=== PATIENT | female | born 1945 | race Two or more races ===

== ENCOUNTER → 2023-05-16 | Outpatient (CLI) | payer OTHER ==
[2023-05-16 09:14] LABS: Basophils # (auto) 0.1 10 ^3/uL (0-0.2); Basophils % (auto) 0.9 % (0.0-2.0); Eosinophils # (auto) 0.2 10 ^3/uL (0-0.8); Eosinophils % (auto) 1.7 % (0.0-7.0); Hematocrit 46.4 % (36.0-46.0); Hemoglobin 15.7 g/dL (12.2-16.2); Lymphocytes # (auto) 1.6 10 ^3/uL (0.4-5.4); Lymphocytes % (auto) 16.8 % (10.0-50.0); Mean Corpuscular Hemoglobin 32.5 pg (28.0-32.0); Mean Corpuscular Hgb Conc. 33.9 g/dL (32.0-36.0); Mean Corpuscular Volume 95.9 fL (80.0-100.0); Monocytes # (auto) 0.8 10 ^3/uL (0-1.3); Monocytes % (auto) 8.2 % (0.0-12.0); Neutrophils # (auto) 6.9 10 ^3/uL (1.6-8.6); Neutrophils % (auto) 72.4 % (37.0-80.0); Nucleated Red Blood Cells % 0.2 %; Red Blood Cells 4.83 10^6/uL (4.0-5.20); Red Cell Distribution Width 12.8 % (11.8-14.3); White Blood Cell 9.6 10^3/uL (4.4-10.8)
[2023-05-16 09:26] LABS: Urine Bacteria FEW /hpf (None Seen); Urine Blood TRACE /uL (Negative); Urine Clarity HAZY (Clear); Urine Color Yellow (Yellow); Urine Hyaline Cast FEW /lpf (0 - 2); Urine Mucus FEW (None Seen); Urine Protein, UAD 2+ (Negative); Urine Specific Gravity 1.022 (1.001-1.035); Urine Urobilinogen Normal (Negative); Urine WBC 11 /hpf (0 - 5)
[2023-05-16 10:58] LABS: Cholesterol 132 mg/dL (< 200); HDL Cholesterol 61 mg/dL (40-59); LDL Cholesterol 46 mg/dL (< 100); Triglycerides 143 mg/dL (< 150)
[2023-05-16 11:18] LABS: Alanine Aminotransferase 13 U/L (7-40); Albumin 4.8 g/dL (3.2-4.8); Alkaline Phosphatase 130 U/L (46-116); Anion Gap 13 (5-15); Aspartate Aminotransferase 18 U/L (13-40); BUN/Creatinine Ratio 7.1 (10.0-20.0); Blood Urea Nitrogen 15 mg/dL (9-23); Calcium 9.6 mg/dL (8.7-10.4); Carbon Dioxide 18 mmol/L (20-30); Chloride 110 mmol/L (98-107); Glucose 142 mg/dL (74-106); Magnesium 2.1 mg/dL (1.6-2.6); Potassium 3.8 mmol/L (3.5-5.1); Sodium 141 mmol/L (136-145); Uric Acid 3.9 mg/dL (3.1-7.8)
[2023-05-16 11:19] LABS: Bilirubin, Total 0.4 mg/dL (0.2-1.0); Total Protein 7.6 g/dL (5.7-8.2)
[2023-05-16 12:20] LABS: Folate (Folic Acid) 19.38 ng/mL (>5.38)
== END | disposition home or self-care (01) ==
LOC: LAB 08:57
PROVIDERS: ATTEND Internal Medicine
DX: E61.2 Magnesium deficiency (principal); R78.89 Finding of other specified substances, not normally found in blood; E78.9 Disorder of lipoprotein metabolism, unspecified; R68.89 Other general symptoms and signs; R94.6 Abnormal results of thyroid function studies; E79.0 Hyperuricemia without signs of inflammatory arthritis and tophaceous disease; R82.991 Hypocitraturia; E85.9 Amyloidosis, unspecified; R82.79 Other abnormal findings on microbiological examination of urine; R82.90 Unspecified abnormal findings in urine; D51.9 Vitamin B12 deficiency anemia, unspecified
CPT/HCPCS: 36415; 80053; 80061; 81001; 82306; 82607; 82746; 83036; 83735; 84443; 84550; 85025; 87086

== ENCOUNTER 2023-06-22 11:05 | Inpatient (IN) | payer OTHER ==
[~2023-06-22] VITALS: Ht 157.5 cm; Wt 77.9 kg
[2023-06-22 12:25] LABS: Basophils # (auto) 0 10 ^3/uL (0-0.2); Basophils % (auto) 0.7 % (0.0-2.0); Eosinophils # (auto) 0.1 10 ^3/uL (0-0.8); Eosinophils % (auto) 2.4 % (0.0-7.0); Hemoglobin 15.4 g/dL (12.2-16.2); Lymphocytes # (auto) 1.4 10 ^3/uL (0.4-5.4); Lymphocytes % (auto) 24.2 % (10.0-50.0); Mean Corpuscular Hemoglobin 32.4 pg (28.0-32.0); Mean Corpuscular Hgb Conc. 32.8 g/dL (32.0-36.0); Mean Corpuscular Volume 98.9 fL (80.0-100.0); Monocytes # (auto) 0.5 10 ^3/uL (0-1.3); Monocytes % (auto) 9.4 % (0.0-12.0); Neutrophils # (auto) 3.6 10 ^3/uL (1.6-8.6); Neutrophils % (auto) 63.3 % (37.0-80.0); Nucleated Red Blood Cells % 0.1 %; Red Blood Cells 4.75 10^6/uL (4.0-5.20); Red Cell Distribution Width 13.3 % (11.8-14.3); White Blood Cell 5.6 10^3/uL (4.4-10.8)
[2023-06-22 12:40] LABS: INR 0.95 (0.9-1.15); Partial Thromboplastin Time 26.8 SEC (24.5-34.5)
[2023-06-22 12:45] LABS: Alanine Aminotransferase 18 U/L (7-40); Albumin 4.5 g/dL (3.2-4.8); Alkaline Phosphatase 108 U/L (46-116); Anion Gap 11 (5-15); Aspartate Aminotransferase 19 U/L (13-40); BUN/Creatinine Ratio 16.4 (10.0-20.0); Bilirubin, Total 0.5 mg/dL (0.2-1.0); Blood Urea Nitrogen 20 mg/dL (9-23); Calcium 9.7 mg/dL (8.7-10.4); Carbon Dioxide 19 mmol/L (20-30); Chloride 110 mmol/L (98-107); Glucose 135 mg/dL (74-106); Potassium 4.6 mmol/L (3.5-5.1); Sodium 140 mmol/L (136-145); Total Protein 6.8 g/dL (5.7-8.2)
[2023-06-22] MEDS ORDERED: NITROGLYCERIN 0.4 MG SL TAB SL ONE (13:30)
[2023-06-22] MEDS ORDERED: IOHEXOL 350 MG/ML 100ML IJ ONE (13:41)
[2023-06-22] MEDS ORDERED: LABETALOL HCL 5 MG/ML 4ML SYRINGE IV ONE (14:45)
[2023-06-22] MEDS ORDERED: hydrALAZINE HCL 20 MG/ML VL IV ONE (18:15)
[2023-06-22] MEDS ORDERED: LABETALOL HCL 5 MG/ML 4ML SYRINGE IV PRN (19:00)
[2023-06-22] MEDS: SODIUM CHLORIDE 0.9% 1,000 ML IV SCH (20:33)
[2023-06-22] MEDS: ENOXAPARIN SOD 40 MG/0.4 ML SYRINGE SC SCH (20:35)
[2023-06-22 20:57] LABS: Magnesium 2.2 mg/dL (1.6-2.6)
[2023-06-22 20:58] LABS: Phosphorus 3.1 mg/dL (2.4-5.1)
[2023-06-22] MEDS: ACETAMINOPHEN 325 MG TAB PO PRN (21:15)
[2023-06-22 21:54] LABS: Erythrocyte Sedimentation Rate 16 mm/hr (0-20)
[2023-06-22] MEDS ORDERED: ATORVASTATIN 20 MG TAB PO SCH (22:00)
[2023-06-22] MEDS: METOPROLOL TARTRATE 50 MG TAB PO SCH (22:33)
[2023-06-23 01:50] VITALS: PULSE 68; RESP 18; O2SAT 96
[2023-06-23] MEDS: SODIUM CHLORIDE 0.9% 1,000 ML IV SCH ×2 (05:10→09:59)
[2023-06-23] MEDS: ACETAMINOPHEN 325 MG TAB PO PRN ×2 (05:24→09:59)
[2023-06-23] MEDS ORDERED: CLOP75TA70 PO (09:45)
[2023-06-23] MEDS ORDERED: AMLO1TAB23 PO ×2 (09:45→14:47)
[2023-06-23] MEDS ORDERED: METO25TA93 PO ×2 (09:45→14:47)
[2023-06-23] MEDS ORDERED: PANT40T PO (09:45)
[2023-06-23] MEDS ORDERED: DONE5TAB80 PO (09:45)
[2023-06-23] MEDS ORDERED: GLIP2.5T9 PO (09:45)
[2023-06-23] MEDS ORDERED: ROSU1TAB15 PO (09:45)
[2023-06-23] MEDS ORDERED: ATE50T PO (09:46)
[2023-06-23] MEDS: METOPROLOL TARTRATE 50 MG TAB PO SCH (09:48)
[2023-06-23] MEDS: ENOXAPARIN SOD 40 MG/0.4 ML SYRINGE SC SCH (09:59)
[2023-06-23] MEDS ORDERED: ASPirin 81 mg TAB PO SCH (10:00)
[2023-06-23] MEDS ORDERED: DEXTROSE (50%) 50ML SYRG IV PRN (10:15)
[2023-06-23] MEDS ORDERED: LORazepam 2MG/ML-1ML VIAL IV PRN (10:30)
[2023-06-23] MEDS ORDERED: ACCU-CHEK COMFORT CURVE STRIP VI SCH (11:30)
[2023-06-23] MEDS ORDERED: InsuLIN REG 1unit/0.01ml Soln (100units/ml) SC SCH (11:30)
[2023-06-23 12:40] LABS: % Iron Saturation 31.3 % (15-50)
[2023-06-23 12:50] LABS: Ferritin 67.7 ng/mL (10-291); Free T4 (Free Thyroxine) 1.01 ng/dL (0.89-1.76)
[2023-06-23 12:51] LABS: Folate (Folic Acid) 18.31 ng/mL (>5.38)
[2023-06-23 14:51] VITALS: BP 126/59; PULSE 79; RESP 18; TEMP 97.5; O2SAT 96
[2023-06-23] MEDS ORDERED: GABAPENTIN 100 MG CAP PO SCH (22:00)
[2023-06-23] MEDS ORDERED: ATORVASTATIN 20 MG TAB PO SCH (22:00)
[2023-06-24] MEDS ORDERED: CLOPIDOGREL BISULFATE 75 MG TAB PO SCH (10:00)
[2023-06-24] MEDS ORDERED: amLODIPine BESYLATE 5 MG TAB PO SCH (10:00)
== END 2023-06-23 16:15 | disposition home or self-care (01) | DRG 305 ==
LOC: ER 11:05 → TELE 18:51 → TELE-E-ADS 18:51
PROVIDERS: ADMIT Nurse Practitioner Family; ATTEND Nurse Practitioner Acute Care
DX: I16.1 Hypertensive emergency (principal); N17.9 Acute kidney failure, unspecified; F03.918 Unspecified dementia, unspecified severity, with other behavioral disturbance; G40.209 Localization-related (focal) (partial) symptomatic epilepsy and epileptic syndromes with complex partial seizures, not intractable, without status epilepticus; E61.1 Iron deficiency; E66.9 Obesity, unspecified; E78.5 Hyperlipidemia, unspecified; G25.81 Restless legs syndrome; G43.909 Migraine, unspecified, not intractable, without status migrainosus; G47.00 Insomnia, unspecified; Z79.899 Other long term (current) drug therapy; Z79.02 Long term (current) use of antithrombotics/antiplatelets; Z82.49 Family history of ischemic heart disease and other diseases of the circulatory system; Z86.73 Personal history of transient ischemic attack (TIA), and cerebral infarction without residual deficits; Z91.148 Patient's other noncompliance with medication regimen for other reason; Z68.31 Body mass index [BMI] 31.0-31.9, adult; Z90.49 Acquired absence of other specified parts of digestive tract
CPT/HCPCS: 36415; 70450; 70496; 70551; 71045; 80053; 80061; 82607; 82728; 82746; 82962; 83036; 83540; 83550; 83735; 83880; 84100; 84439; 84443; 84484; 85025; 85610; 85652; 85730; 93005; 96374; 97163; 99291; G0378; J3490

== ENCOUNTER 2024-11-13 14:24 | Inpatient (IN) | payer OTHER, MEDICAID ==
[~2024-11-13] VITALS: Ht 157.5 cm; Wt 79.0 kg
[~2024-11-13 14:24] MED LIST: AMLO1TAB23 PO; CLOP75TA70 PO; DONE5TAB80 PO; GLIP2.5T9 PO; METO25TA93 PO; PANT40T PO; ROSU40TA47 PO
[2024-11-13 18:54] VITALS: BP 173/81; PULSE 54; TEMP 98.8; O2SAT 94
[2024-11-13 19:01] VITALS: PULSE 62; RESP 18; O2SAT 96
[2024-11-13 19:30] VITALS: BP 173/81; PULSE 62; RESP 18; TEMP 98.2; O2SAT 96
[2024-11-13 20:00] VITALS: PULSE 59; RESP 18; O2SAT 96
[2024-11-13 21:00] VITALS: BP 153/81; PULSE 61; RESP 17; TEMP 98.8; O2SAT 95
[2024-11-13] MEDS ORDERED: DEXTROSE (50%) 50ML SYRG IV PRN (21:45)
[2024-11-13] MEDS ORDERED: ONDANSETRON HCL 4 MG/2 ML VIAL IV PRN (21:45)
[2024-11-13] MEDS ORDERED: MORPHINE SULFATE INJ 2 MG/ml SYRG IV PRN (21:45)
[2024-11-13] MEDS ORDERED: NITROGLYCERIN 0.4 MG SL TAB SL PRN (21:45)
--- NOTE | 2024-11-13 21:58 | DVHHP2 ---
History of Present Illness Reason for Visit: Altered mental status History of Present Illness 79-year-old female transferred from [facility] for continuity of care and disposition. Patient presented to outside facility on 11/11/2024 with complaints of blurred vision, right facial droop, expressive aphasia and difficulty swollen that has been ongoing since the day prior at 5:[address] of the head from outside facility was essentially negative for acute pathology. MRI of the brain was taken prior to the patient being transferred. Results will be faxed. It was reported that the patient did fail a swallow study today. Patient was stable in stable condition. Patient continues to complain of blurred vision on bilateral sinclair. No facial droop noted. All extremities are equal in strength. She does report having difficulty formulating words. No cardiac or respiratory complaints. Past Medical History CVA, GERD, hypertension, diabetes mellitus, Alzheimer's Past Surgical History None Family History Noncontributory Smoke: No ALCOHOL: none Drugs: None Lives: with Family Review of Systems Review of Systems Review of systems are currently negative otherwise addressed in HPI. Allergies: Coded Allergies: NO KNOWN ALLERGIES (Unverified , 06/22/23) Exam Vital Signs Vital Signs Date Time Temp Pulse Resp B/P (MAP) Pulse Ox O2 Delivery O2 Flow Rate FiO2 11/13/24 19:30 98.2 62 18 173/81 (111) 96 98.2 Exam Gen: 79-year-old female in mild distress Skin: Warm, dry, normal color and texture, no rash. HEENT: Normocephalic atraumatic, mucous membranes moist and pink. Neck: Cervical and supraclavicular nodes normal without enlargement, trachea is midline, thyroid gland is normal without masses. Pulmonary: Clear to auscultation and percussion bilaterally. Cardiac: Regular rate and rhythm. No murmur Abdomen: Soft, nontender, nondistended, bowel sounds present all 4 quadrants, no guarding, no rigidity, no organomegaly. Extremities: No cyanosis, clubbing, no edema Neuro: Cranial nerves II through XII grossly intact, normal affect and speech, no focal motor deficits. Assessment/Plan Assessment/Plan Assessment Cerebrovascular accident, nonhemorrhagic Accelerated hypertension Expressive aphasia Dysphagia Plan Admit the patient to telemetry to the hospitalist Nephrology consultation We will get results from outside facility for MRI of the brain. NPO Repeat Swallow eval Maintenance IV fluids TPN per pharmacy Continue treatment per orders. Plan discussed with: Patient My Orders Orders - MANUEL OGDEN Procedure Category Date Status Time Complete Blood Count LAB 11/13/24 Verified 21:31 Comprehensive LAB 11/13/24 Verified Metabolic Panel 21:31 Troponin-I Hs LAB 11/13/24 Verified 21:31 Urinalysis LAB 11/13/24 Verified 21:31 Hydralazine Injection PHA 11/13/24 Verified (Apresoline Inject 21:45 * Neurology Consult CONS 11/13/24 Verified 21:31 Tpn Per Pharmacy NABIL 11/13/24 Verified 21:31 D5w/Sod Chl 0.45% 1/2 PHA 11/13/24 Verified NS 21:45 Glucose Blood PHA 11/14/24 Verified (Accu-Chek Comfort 00:00 Mild Sliding Scale PHA 11/14/24 Verified Npo - Q6hr 00:00 Dextrose 50% Syringe PHA 11/13/24 Verified 21:45 * Swallow Request ST 11/13/24 Verified 21:31 Pt Request For Service PT 11/13/24 Verified 21:31 Admit ADMIT 11/13/24 Verified 21:31 Ondansetron Hcl PHA 11/13/24 Verified (Zofran) 21:45 Enoxaparin Sodium PHA 11/14/24 Verified (Lovenox) 10:00 Npo (Nothing By DIET 11/14/24 Verified Mouth) Diet Breakfast Condition: Fair NABIL 11/13/24 Verified 21:31 Bedrest With Bathroom NABIL 11/13/24 Verified Privileg 21:31 Nitroglycerin PHA 11/13/24 Verified Sublingual (Ntrostat 21:45 Morphine Sulfate PHA 11/13/24 Verified Injection 21:45 Stat Ekg For Chest NABIL 11/13/24 Verified Pain 21:31 Notify Md Of Changes NABIL 11/13/24 Verified From Base 21:31 Auto Radio Mechanic For NABIL 11/13/24 Verified 24 Hours 21:31 Emergency Dysrhythmia NABIL 11/13/24 Verified Protocol 21:31 Rhythm Strips Once [facility] 11/13/24 Verified Every Shift 21:31 Oxygen By Nasal RT 11/13/24 Verified Cannula 21:31 Date of Service: Nov 13, 2024 Billing Provider: MANUEL OGDEN Common Visit Codes: [id number] INP/OBS CARE (HIGH) OGDEN,[facility] Nov 13, 2024 21:58
[2024-11-13] MEDS ORDERED: TPN PER PHARMACY 0 ML IV SCH (22:30)
[2024-11-13 22:36] LABS: Basophils # (auto) 0 10 ^3/uL (0-0.2); Basophils % (auto) 0.6 % (0.0-2.0); Eosinophils # (auto) 0.1 10 ^3/uL (0-0.8); Eosinophils % (auto) 1.1 % (0.0-7.0); Hematocrit 46.3 % (36.0-46.0); Hemoglobin 15.9 g/dL (12.2-16.2); Lymphocytes % (auto) 19.4 % (10.0-50.0); Mean Corpuscular Hemoglobin 32.6 pg (28.0-32.0); Mean Corpuscular Hgb Conc. 34.3 g/dL (32.0-36.0); Mean Corpuscular Volume 95.2 fL (80.0-100.0); Monocytes # (auto) 0.5 10 ^3/uL (0-1.3); Monocytes % (auto) 9.8 % (0.0-12.0); Neutrophils # (auto) 3.7 10 ^3/uL (1.6-8.6); Neutrophils % (auto) 69.1 % (37.0-80.0); Nucleated Red Blood Cells % 0.1 %; Platelet Count (auto) 238 10^3/uL (140-450); Red Blood Cells 4.86 10^6/uL (4.0-5.20); Red Cell Distribution Width 14.5 % (11.8-14.3); White Blood Cell 5.3 10^3/uL (4.4-10.8)
[2024-11-13 22:54] LABS: Alanine Aminotransferase 11 U/L (7-40); Albumin 4.4 g/dL (3.2-4.8); Alkaline Phosphatase 106 U/L (46-116); Aspartate Aminotransferase 13 U/L (13-40); BUN/Creatinine Ratio 19.7 (10.0-20.0); Calcium 10.3 mg/dL (8.7-10.4); Total Protein 6.8 g/dL (5.7-8.2)
[2024-11-13 22:55] LABS: Bilirubin, Total 0.7 mg/dL (0.2-1.0)
[2024-11-13 22:58] LABS: Anion Gap 18 (5-15); Potassium 4.3 mmol/L (3.5-5.1)
[2024-11-13 23:00] LABS: Blood Urea Nitrogen 26 mg/dL (9-23); Carbon Dioxide 16 mmol/L (20-31); Chloride 111 mmol/L (98-107); Glucose 72 mg/dL (74-106); Sodium 145 mmol/L (136-145)
[2024-11-13] MEDS: hydrALAZINE HCL 20 MG/ML VL IV PRN (23:16)
[2024-11-13] MEDS: D5W/SOD CHL 0.45% 1,000 ML IV SCH (23:21)
[2024-11-14] VITALS (9 sets, daily range): BP systolic 120–198; BP diastolic 66–101; PULSE 62–96; RESP 15–18; TEMP 97.5–98.2; O2SAT 95–97
[2024-11-14] MEDS: InsuLIN REG 1unit/0.01ml Soln (100units/ml) SC SCH
[2024-11-14] MEDS: ACCU-CHEK COMFORT CURVE STRIP VI SCH (00:20)
[2024-11-14 02:35] LABS: Urine Bacteria None Seen /hpf (None Seen)
[2024-11-14 03:11] LABS: Urine Blood Negative /uL (Negative); Urine Clarity Turbid (Clear); Urine Color Light-Yellow (Yellow); Urine Hyaline Cast FEW /lpf (0 - 2); Urine Mucus FEW (None Seen); Urine Protein, UAD 1+ (Negative); Urine Specific Gravity 1.026 (1.001-1.035); Urine Squamous Epithelial Cell MOD /hpf (<5); Urine Urobilinogen Normal (Negative); Urine WBC 2 /HPF (0-5)
[2024-11-14 07:52] LABS: Alanine Aminotransferase 14 U/L (7-40); Albumin 4.6 g/dL (3.2-4.8); Alkaline Phosphatase 109 U/L (46-116); Anion Gap 20 (5-15); BUN/Creatinine Ratio 20.3 (10.0-20.0); Glucose 102 mg/dL (74-106); Magnesium 1.9 mg/dL (1.6-2.6); Potassium 4.4 mmol/L (3.5-5.1); Sodium 143 mmol/L (136-145); Total Protein 7.2 g/dL (5.7-8.2)
[2024-11-14 07:53] LABS: Aspartate Aminotransferase 21 U/L (13-40); Bilirubin, Total 0.7 mg/dL (0.2-1.0); Blood Urea Nitrogen 26 mg/dL (9-23); Calcium 10.5 mg/dL (8.7-10.4); Carbon Dioxide 13 mmol/L (20-31); Chloride 110 mmol/L (98-107); Phosphorus 3.9 mg/dL (2.4-5.1); Triglycerides 161 mg/dL (< 150)
[2024-11-14] MEDS: ENOXAPARIN SOD 30 MG/0.3 ML SYRINGE SC SCH (10:08)
[2024-11-14 12:22] LABS: Hepatitis B Surface Antigen Negative (Negative)
[2024-11-14 12:43] LABS: Hepatitis C Antibody Negative (Negative)
--- NOTE | 2024-11-14 14:51 | DVHPN2 ---
Subjective Patient continues to report having headache Reviewed: Care Plan, H&P, Labs, Medications Changes from previous H/P or p: No Changes General: Per HPI Objective Vitals Vital Signs Date Time Temp Pulse Resp B/P (MAP) Pulse Ox O2 Delivery O2 Flow Rate FiO2 11/14/24 13:00 97.6 96 17 120/66 (84) 95 97.6 11/14/24 08:10 Room Air* 0 21 Intake/Output Intake and Output 11/14/24 07:00 Output Total 250 ml Balance -250 ml Output Urine Total 250 ml General Appearance: Alert, Oriented X3, Cooperative, No acute distress HEENT: Atraumatic, PERRLA Lungs: Clear to auscultation, Normal air movement Cardiovascular: Normal S1, Normal S2 Musculoskeletal: Normal sensory function, Normal motor function Extremities: No clubbing, No cyanosis Neuro: Normal gait, Normal speech Skin: Dry, Intact Psych/Mental Status: Mental status NL, Mood NL Medications Current Medications Medications Dose Ordered Sig/Tasia Route Start Time Stop Time Status Last Admin Dose Admin Hydralazine HCl 10 mg Q6HP PRN IV 11/13/24 21:45 11/13/24 23:16 10 MG Dextrose/Sodium Chloride 1,000 ml @ 75 mls/hr [id number] IV 11/13/24 21:45 11/13/24 23:21 75 MLS/HR Diagnostic Test (Pha) 1 strip Q6HR 11/14/24 00:00 11/14/24 11:19 1 STRIP Insulin Human Regular Q6HR SC 11/14/24 00:00 Dextrose 50 ml UD PRN IV 11/13/24 21:45 Ondansetron HCl 4 mg Q4HP PRN IV 11/13/24 21:45 Enoxaparin Sodium 30 mg DAILY SC 11/14/24 10:00 11/14/24 10:08 30 MG Nitroglycerin 0.4 mg Q5MINP PRN SL 11/13/24 21:45 Morphine Sulfate 2 mg Q30M PRN IV 11/13/24 21:45 Amino Acids 0 ml @ 0 mls/hr PER PHARMACY IV 11/13/24 22:30 Amino Acids/ Electrolytes/ Dextrose 1,000 ml @ 41 mls/hr DAILY@2200 IV 11/14/24 22:00 11/15/24 21:59 Laboratory Results Laboratory Tests 11/13/24 22:22 11/14/24 06:48 Chemistry Test 11/13/24 22:22 11/14/24 06:48 Albumin 4.4 g/dL (3.2-4.8) 4.6 g/dL (3.2-4.8) Calcium Level 10.3 mg/dL (8.7-10.4) 10.5 mg/dL (8.7-10.4) H Total Protein 6.8 g/dL (5.7-8.2) 7.2 g/dL (5.7-8.2) Magnesium Level 1.9 mg/dL (1.6-2.6) Phosphorus Level 3.9 mg/dL (2.4-5.1) Lipid panel Test 11/14/24 06:48 Triglycerides Level 161 mg/dL (< 150) H LFT Test 11/13/24 22:22 11/14/24 06:48 Alanine Aminotransferase (ALT) 11 U/L (7-40) 14 U/L (7-40) Alkaline Phosphatase 106 U/L (46-116) 109 U/L (46-116) Aspartate Amino Transferase (AST) 13 U/L (13-40) 21 U/L (13-40) Total Bilirubin 0.7 mg/dL (0.2-1.0) 0.7 mg/dL (0.2-1.0) Urinalysis Test 11/14/24 02:00 Urine Color Light-yellow (Yellow) Urine Clarity Turbid (Clear) H Urine pH 6.0 (5.0-9.0) Urine Specific [place] 1.026 (1.001-1.035) Urine Protein 1+ (Negative) H Urine Ketones 4+ (Negative) H Urine Blood Negative /uL (Negative) Urine Nitrite Negative (Negative) Urine Bilirubin Negative (Negative) Urine Urobilinogen Normal mg/dL (Negative) Urine Leukocyte Esterase Negative /uL (Negative) Urine RBC None seen /hpf (0 - 4) Urine Microscopic WBC 2 /HPF (0-5) Urine Squamous Epithelial Cells Mod /hpf (<5) Urine Bacteria None seen /hpf (None Seen) Urine Hyaline Casts Few /lpf (0 - 2) Urine Mucus Few (None Seen) Urine Glucose Normal mg/dL (Normal) Labs and/or images reviewed: Labs reviewed by me, Image(s) reviewed by me Assessment/Plan Assessment/Plan Impression: -acute CVA involving the tobias -history of CVA -diabetes mellitus -accelerated hypertension -paroxysmal atrial fibrillation -metabolic acidosis Plan: -cardiology consultation to assess for possible BECKY. -CT angiogram of the neck negative for large vessel occlusion as noted from diagnostic report from [facility] -recommend aspirin or Eliquis, patient continues to be NPO given inability to swallow -speech therapy for swallow evaluation -continue IV nutrition as previously ordered -regular insulin sliding scale -check TSH, lipid panel, serum ketones Total time spent with patient discussing and formulating plan of care: 35 minutes. This medical document was created using an electronic medical record system with [employer] dictation system. Although this document has been carefully reviewed, there may still be some phonetic and typographical errors. These areas are purely typographical due to imperfections of the software programs, and do not reflect any compromise in the patient's medical care. Plan discussed with: Patient, Other (RN) My Orders Orders - RY ANAYA NP Procedure Category Date Status Time * Cardiology Consult CONS 11/14/24 Verified 14:44 Basic Metabolic Panel LAB 11/15/24 Verified 04:00 Thyroid Stimulating LAB 11/14/24 Verified Hormone 14:44 Hemoglobin A1c LAB 11/14/24 Verified 14:44 Beta-Hydroxybutyrate LAB 11/14/24 Verified 14:44 Lipid Panel LAB 11/14/24 Verified 14:44 Date of Service: Nov 14, 2024 Billing Provider: RY ANAYA NP Common Visit Codes: [id number] INP/OBS CARE(HIGH) RY ANAYA NP Nov 14, 2024 14:51
[2024-11-14 17:23] LABS: Triglycerides 133 mg/dL (< 150)
[2024-11-14 17:30] LABS: Cholesterol 234 mg/dL (< 200); HDL Cholesterol 66 mg/dL (40-59); LDL Cholesterol 144 mg/dL (< 100)
--- NOTE | 2024-11-14 17:36 | DVHINCON2 ---
Date Seen: Nov 14, 2024 Referring Physician ARSH Anaya Reason for Consultation Assess for BECKY History of Present Illness This is an 79-year-old female patient who presents to emergency room from [facility]. Initially, the patient reports that when she was at home she began to feel shortness of breath, left-sided weakness, and dysphagia. Family called EMS and the patient was immediately taken to [facility]. At [facility], the patient underwent a brain MRI which revealed two small foci of acute infarcts in the ventral and dorsal left paramedian tobias. The patient was then transferred to this facility due to insurance reasons. Cardiology has been consulted at this time for possible transesophageal echocardiogram. Initial twelve lead electrocardiogram done at this facility reveals sinus bradycardia with first-degree AV block. Initial troponin level negative. The patient denies any cardiac symptoms. Significant past medical history includes hypertension, dyslipidemia, chronic kidney diseas e, history of CVA, and obesity. Per admitting provider documentation, paroxysmal atrial fibrillation noted as part of patient's history. Patient denies any history of paroxysmal atrial fibrillation. No cardiac or EKG findings to confirm atrial fibrillation. Per external medication reconciliation, patient is not on any NOAC therapy. She denies seeing a associate biological sales in the outpatient setting. Past Medical History Past medical history reviewed. No other significant than mentioned above. Past Surgical History Hernia repair Family History: Asthma G8 MOTHER FH: dementia G8 MOTHER Family History Family history reviewed. Social History Denies the use of tobacco, alcohol or illicit drugs. Allergies: Uncoded Allergies: NKA (Allergy, Unknown, 11/13/24) NKA Home Meds Active Scripts Amlodipine Besylate (Amlodipine Besylate) 10 Mg Tab, 1 TAB PO DAILY for 60 Days, #60 TAB Prov:RY ANAYA NUCLEAR OPERATIONS SPECIALIST 06/23/23 Metoprolol Succinate (Metoprolol Succinate Er) 25 Mg Tab, 1 TAB PO DAILY for 60 Days, #60 TAB Prov:RY ANAYA NUCLEAR OPERATIONS SPECIALIST 06/23/23 Reported Medications Pantoprazole Sodium Sesquihydr (Pantoprazole Sodium) 40 Mg Tab, 1 TAB PO DAILY 06/23/23 Donepezil Hydrochloride (DONEPEZIL HCL) 5 Mg Tab, 1 TAB PO DAILY 06/23/23 Clopidogrel Bisulfate (CLOPIDOGREL) 75 Mg Tab, 1 TAB PO DAILY 06/23/23 Glipizide (Glipizide Er) 2.5 Mg Tab, 1 TAB PO DAILY 06/23/23 Rosuvastatin Calcium (Rosuvastatin Calcium) 40 Mg Tab, 1 TAB PO DAILY 06/23/23 Home Meds Home medications reviewed. Current Medications Current Medications Medications (Trade) Dose Ordered Sig/Tasia Route PRN Reason Start Time Stop Time Status Last Admin Hydralazine HCl (Apresoline Injection) 10 mg Q6HP PRN IV SBP>150 11/13/24 21:45 11/14/24 16:56 Dextrose/Sodium Chloride 1,000 ml @ 75 mls/hr [id number] IV 11/13/24 21:45 11/14/24 15:58 Diagnostic Test (Pha) (Accu-Chek Comfort Curve T) 1 strip Q6HR 11/14/24 00:00 11/14/24 16:58 Insulin Human Regular (InsuLIN R) Q6HR SC 11/14/24 00:00 Dextrose 50 ml UD PRN IV Blood Sugar LESS THAN 60 11/13/24 21:45 Ondansetron HCl (Zofran) 4 mg Q4HP PRN IV NAUSEA / VOMITING 11/13/24 21:45 Enoxaparin Sodium (Lovenox) 30 mg DAILY SC 11/14/24 10:00 11/14/24 10:08 Nitroglycerin (Ntrostat Sublingual) 0.4 mg Q5MINP PRN SL FOR CHEST PAIN 11/13/24 21:45 Morphine Sulfate 2 mg Q30M PRN IV FOR CHEST PAIN 11/13/24 21:45 Amino Acids 0 ml @ 0 mls/hr PER PHARMACY IV 11/13/24 22:30 Amino Acids/ Electrolytes/ Dextrose 1,000 ml @ 41 mls/hr DAILY@2200 IV 11/14/24 22:00 11/15/24 21:59 Review of Systems Constitutional: No symptom reported Ears, Nose, & Throat: No symptom reported Eyes: No symptom reported Neurological: Left-sided weakness Pulmonary/Respiratory: No symptoms reported Cardiovascular: No symptom reported Gastrointestinal: Dysphagia Genitourinary: No symptom reported Musculoskeletal: No symptom reported Skin: No symptom reported Psychiatric: No symptom reported Endocrine: No symptom reported Hematologic/Lymphatic: No symptom reported Vital Signs Vital Signs Date Time Temp Pulse Resp B/P (MAP) Pulse Ox O2 Delivery O2 Flow Rate FiO2 11/14/24 16:56 198/98 11/14/24 13:00 97.6 96 17 95 97.6 11/14/24 08:10 Room Air* 0 21 Physical Exam General Appearance: Cooperative. Well-developed. Well-nourished. No acute distress. Pulmonary/Respiratory: Clear, bilateral breaths sounds. Cardiovascular/Chest: Regular rate and rhythm. Peripheral Pulses: 2+ Radial (R). 2+ Radial (L). 2+ Pedal (R). 2+ Pedal (L) Abdominal Exam: Normal bowel sounds. Ankle Exam: Negative ankle edema Lower extremities: Negative lower extremity edema Neuro/Mental Status: A/OX3, coherent. Some difficulty formulating words Thoughts/Psych: Normal thought pattern. Appropriate mood and affect. Good judgment and insight. Appearance: No acute distress. Skin Exam: Normal inspection. Normal color. Warm and dry. Labs/Diagnostic Data Labs Test 11/14/24 16:55 11/14/24 16:38 11/14/24 16:13 11/14/24 06:48 Range/Units POC Glucose 111 H 70-106 mg/dl Hemoglobin A1c 5.8 H <5.7 % A1C Sodium Level 143 136-145 mmol/L Potassium Level 4.4 3.5-5.1 mmol/L Chloride Level 110 H 98-107 mmol/L Carbon Dioxide Level 13 L 20-31 mmol/L Anion Gap 20 H 5-15 Blood Urea Nitrogen 26 H 9-23 mg/dL Creatinine 1.28 H 0.550-1.02 mg/dL Glomerular Filtration Rate Calc 42 >90 mL/min BUN/Creatinine Ratio 20.3 H 10.0-20.0 Serum Glucose 102 74-106 mg/dL Calcium Level 10.5 H 8.7-10.4 mg/dL Phosphorus Level 3.9 2.4-5.1 mg/dL Magnesium Level 1.9 1.6-2.6 mg/dL Total Bilirubin 0.7 0.2-1.0 mg/dL Aspartate Amino Transferase (AST) 21 13-40 U/L Alanine Aminotransferase (ALT) 14 7-40 U/L Alkaline Phosphatase 109 46-116 U/L Total Protein 7.2 5.7-8.2 g/dL Albumin 4.6 3.2-4.8 g/dL Hepatitis B Surface Antigen Negative Negative Hepatitis C Antibody Negative Negative Test 11/14/24 02:00 11/13/24 22:22 Range/Units Urine Color Light-yellow Yellow Urine Clarity Turbid H Clear Urine pH 6.0 5.0-9.0 Urine Specific [place] 1.026 1.001-1.035 Urine Protein 1+ H Negative Urine Ketones 4+ H Negative Urine Blood Negative Negative /uL Urine Nitrite Negative Negative Urine Bilirubin Negative Negative Urine Urobilinogen Normal Negative mg/dL Urine Leukocyte Esterase Negative Negative /uL Urine RBC None seen 0 - 4 /hpf Urine Microscopic WBC 2 0-5 /HPF Urine Squamous Epithelial Cells Mod <5 /hpf Urine Bacteria None seen None Seen /hpf Urine Hyaline Casts Few 0 - 2 /lpf Urine Mucus Few None Seen Urine Glucose Normal Normal mg/dL White Blood Count 5.3 4.4-10.8 10^3/uL Red Blood Count 4.86 4.0-5.20 10^6/uL Hemoglobin 15.9 12.2-16.2 g/dL Hematocrit 46.3 H 36.0-46.0 % Mean Corpuscular Volume 95.2 80.0-100.0 fL Mean Corpuscular Hemoglobin 32.6 H 28.0-32.0 pg Mean Corpuscular Hemoglobin Concent 34.3 32.0-36.0 g/dL Red Cell Distribution Width 14.5 H 11.8-14.3 % Platelet Count 238 140-450 10^3/uL Mean Platelet Volume 8.9 6.9-10.8 fL Neutrophils (%) (Auto) 69.1 37.0-80.0 % Lymphocytes (%) (Auto) 19.4 10.0-50.0 % Monocytes (%) (Auto) 9.8 0.0-12.0 % Eosinophils (%) (Auto) 1.1 0.0-7.0 % Basophils (%) (Auto) 0.6 0.0-2.0 % Neutrophils # (Auto) 3.7 1.6-8.6 10 ^3/uL Lymphocytes # (Auto) 1.0 0.4-5.4 10 ^3/uL Monocytes # (Auto) 0.5 0-1.3 10 ^3/uL Eosinophils # (Auto) 0.1 0-0.8 10 ^3/uL Basophils # (Auto) 0 0-0.2 10 ^3/uL Nucleated Red Blood Cells 0.1 % Troponin I High Sensitivity 6 </=34 ng/L Microbiology Date/Time Source Procedure Growth Status 11/13/24 23:00 Nose MRSA Screen - Final Complete Assessment Acute CVA, rule out cardiac etiology Rule out cardiac arrhythmia Rule out structural heart disease Hypertension Dyslipidemia Chronic kidney disease History of CVA Obesity Plan/Recommendation We will continue following plan/recommendations (Dr. Blount): Case discussed with . Given the patient's history of CVA and now acute CVA, the patient may benefit from undergoing a transesophageal echocardiogram with bubble study. Procedure explained with the patient in full detail. Patient understands and is agreeable to undergo the procedure. We will schedule the patient at first availability on 11/15/2024. We will also order a bilateral carotid ultrasound to rule out carotid stenosis. Thank you for allowing us to care for this patient. Please call with any questions or concerns. Critical care time spent: 44 minutes This medical document was created using an electronic medical record system with voice recognition software and computerized dictation system. Although this document has been carefully reviewed, there might still be some phonetic and typographical errors. Occasional wrong-word or ``sound-alike substitutions may have occurred due to the inherent limitations of voice recognition software. These areas are purely typographical due to imperfections of the software programs and do not reflect any compromise in the patient's medical care. Please read the chart carefully and recognize, using context, where these substitutions have occurred. Plan discussed with: Patient NYHA Physical activity limitations: NA Date of Service: Nov 14, 2024 Billing Provider: ALEXIS EVERETT Cardiology Common Codes: 48295-[id number] INP/OBS CARE (High) Cardiology Consultation Codes: [id number] CONSULT <45MIN ALEXIS EVERETT Nov 14, 2024 17:36
--- NOTE | 2024-11-14 18:59 | DVH ---
CAROTID DOPPLER ULTRASOUND HISTORY: CVA COMPARISON: None TECHNIQUE: Real time poole scale, color Doppler, and spectral duplex images are obtained through the c arotid and vertebral arteries. Findings: Peak systolic velocity right internal carotid artery is 73 cm/s and right common carotid artery is 64 cm/s. Ratio is 1.1. Antegrade flow noted in right vertebral artery. Mild atherosclerotic plaque note d within the right carotid arterial system. Peak systolic velocity left internal carotid artery is 91 cm/s and left common carotid artery is 59 c m/s. Ratio is 1.5. Antegrade flow noted in left vertebral artery. Mild atherosclerotic plaque noted w ithin the left carotid arterial system. Impression: 1. No evidence of hemodynamically significant stenosis within the bilateral carotid arterial systems. 2. Antegrade flow within bilateral vertebral arteries.
[2024-11-14 19:57] LABS: INR 0.98 (0.9-1.15); Partial Thromboplastin Time 21.6 SEC (24.5-34.5); Prothrombin Time 10.4 sec (9.3-11.8)
[2024-11-14] MEDS: AMINO ACID INFUSION IN D10W 1,000 ML IV SCH (20:52)
--- NOTE | 2024-11-14 21:46 | DVH ---
CHEST RADIOGRAPH Indication: pre-op Technique: Single frontal view of the chest was obtained Comparison: XY CHEST XRAY 1 VIEW on DOS: 06/22/23 FINDINGS: Lines and Tubes: None Lungs: No focal consolidation. Pleura: No effusion. No pneumothorax. Cardiomediastinal contours: Unremarkable Bones: No acute osseous abnormality. IMPRESSION: 1. No acute cardiopulmonary disease.
[2024-11-15] VITALS (13 sets, daily range): BP systolic 119–163; BP diastolic 71–89; PULSE 55–102; RESP 16–20; TEMP 97.7–98.4; O2SAT 90–97
[2024-11-15] MEDS ORDERED: ACETAMINOPHEN 325 MG TAB PO PRN (01:00)
[2024-11-15] MEDS: KETOROLAC TROMETH 30 MG/ML 1ML VIAL IV ONE (01:43)
[2024-11-15 07:02] LABS: Potassium 3.6 mmol/L (3.5-5.1); Sodium 138 mmol/L (136-145)
[2024-11-15 07:03] LABS: Anion Gap 15 (5-15); Calcium 9.6 mg/dL (8.7-10.4); Carbon Dioxide 14 mmol/L (20-31); Chloride 109 mmol/L (98-107)
[2024-11-15 07:06] LABS: Albumin 4.2 g/dL (3.2-4.8)
[2024-11-15 07:08] LABS: BUN/Creatinine Ratio 16.8 (10.0-20.0); Blood Urea Nitrogen 19 mg/dL (9-23); GFR African American 60 mL/min; GFR Non-African American 49 mL/min; Magnesium 2.4 mg/dL (1.6-2.6)
[2024-11-15 07:09] LABS: Glucose 128 mg/dL (74-106)
[2024-11-15 07:12] LABS: Phosphorus 2.4 mg/dL (2.4-5.1)
--- NOTE | 2024-11-15 07:33 | ECG ---
[facility] Test Date: 2024-11-14 Test Time: 16:37:23 Pat Name: DOMENIC AGUILLON Department: Respiratoy Room: 0289T B Gender: F Technician [employer] Systems: AB : 1945 Requested By: RY ANAYA Order Number: [id number] Reading MD: Emil Blount Measurements Intervals [place] Rate: 52 P: 5 GA: 214 QRS: -21 QRSD: 99 T: 2 QT: 419 QTc: 390 Interpretive Statements Sinus rhythm Borderline prolonged GA interval Left ventricular hypertrophy Anterior Q waves, possibly due to LVH Electronically Signed On 11-16-2024 9:32:10 PDT by Emil Blount Please click the below link to view image of tracing.
[2024-11-15] MEDS: LIDOCAINE VISCOUS 2% 15ML UD PO ONE (08:50)
[2024-11-15] MEDS: MIDAZOLAM HCL 2MG/2ML 2ml VIAL (1mg/ml) IV ONE (08:50)
[2024-11-15] MEDS: fentaNYL CITRATE 100 MCG/2 ML VL IV ONE (08:53)
--- NOTE | 2024-11-15 09:38 | DVHOP2 ---
Operative Report - 2 Report Details Date: 11/15/24 Preop Diagnosis: CVA Postop Diagnosis: INTRACARDIAC SHUNT Surgeon: Perlita Blount MD Anesthesiologist: Conscious sedation Anesthesia: Mac, Local Consent: The patient was informed of the risks and benefits of the procedure. These include but are not limited to complications of anesthesia, postoperative infection, incomplete relief of symptoms, recurrence of symptoms, damage to blood vessels, nerves and tendons, deep venous thrombosis, pulmonary embolism and possible need for repeat surgery in the future. Complications: No complications Findings: Intracardiac shunt. Positive bubble study. Indications for Surgery: CVA Name of Procedure Performed Transesophageal echocardiogram Procedure Details Procedure Details: Prior full informed consent obtained the patient was prepped and draped in usual fashion placed in the semi-Encarnacion and left lateral decubitus position. The patient was prepped and draped in the usual fashion. Transesophageal probe was passed after giving the patient conscious sedation and lidocaine gargle. Standard views obtained. No difficulty in passing the probe. Transgastric views were also obtained. Bubble study was performed. Conclusions Technically good study. Patient in a sinus rhythm. Left atrial enlargement. No intra-atrial or intraventricular septal defects identified. Valves are normal. Left ventricular function is preserved at 55% with normal right ventricular function. Dopplers unremarkable. Mild tricuspid regurgitation. There were no PFO and or atrial septal defect abnormalities noted on Doppler. no ventricular septal defect or abnormal shunting noted on Doppler. Bubble study confirms immediate crossover of bubbles into the left atrium and ventricle upon injection of agitated saline. Bubble study confirms intra- atrial defect and/or patent foramina ovale not delineated by Doppler or visual drop out. Clinical correlation highly recommended. Consider further evaluat ion with 3D intracardiac ECHO. No intracardiac masses and/or vegetations discernible. No pericardial effusion noted. Transgastric views are unremarkable. Condition Guarded Disposition Still a Patient Date of Service: Nov 15, 2024 Billing Provider: PERLITA BLOUNT Sr., MD Cardiology Common Codes: PROCEDURE ONLY Cardiology Procedure Codes: 70250-IZA W/IMG DOC INCL PROB ACQ PERLITA BLOUNT Sr., MD Nov 15, 2024 09:38
[2024-11-15] MEDS: POTASSIUM PHOSPHATE 11 MEQ in SODIUM CHL 0.9% 100 ML IV ONE (15:35)
--- NOTE | 2024-11-15 16:01 | DVHPN2 ---
Subjective Patient continues to report having headache Reviewed: Care Plan, H&P, Labs, Medications Changes from previous H/P or p: No Changes General: Per HPI Objective Vitals Vital Signs Date Time Temp Pulse Resp B/P (MAP) Pulse Ox O2 Delivery O2 Flow Rate FiO2 11/15/24 13:00 97.9 72 18 147/85 (105) 93 97.9 11/15/24 08:24 Room Air* 0 21 Intake/Output Intake and Output 11/15/24 06:59 Intake Total 1150 ml Output Total 250 ml Balance 900 ml Intake Oral 0 ml IV Total 1150 ml Output Urine Total 250 ml # Voids 1 General Appearance: Alert, Oriented X3, Cooperative, No acute distress HEENT: Atraumatic, PERRLA Lungs: Clear to auscultation, Normal air movement Cardiovascular: Normal S1, Normal S2 Musculoskeletal: Normal sensory function, Normal motor function Extremities: No clubbing, No cyanosis Neuro: Normal gait, Normal speech Skin: Dry, Intact Psych/Mental Status: Mental status NL, Mood NL Medications Current Medications Medications Dose Ordered Sig/Tasia Route Start Time Stop Time Status Last Admin Dose Admin Hydralazine HCl 10 mg Q6HP PRN IV 11/13/24 21:45 11/14/24 23:35 10 MG Dextrose/Sodium Chloride 1,000 ml @ 75 mls/hr [id number] IV 11/13/24 21:45 11/15/24 13:54 75 MLS/HR Diagnostic Test (Pha) 1 strip Q6HR 11/14/24 00:00 11/15/24 11:43 1 STRIP Insulin Human Regular Q6HR SC 11/14/24 00:00 11/15/24 05:59 2 UNITS Dextrose 50 ml UD PRN IV 11/13/24 21:45 Ondansetron HCl 4 mg Q4HP PRN IV 11/13/24 21:45 Enoxaparin Sodium 30 mg DAILY SC 11/14/24 10:00 11/14/24 10:08 30 MG Nitroglycerin 0.4 mg Q5MINP PRN SL 11/13/24 21:45 Morphine Sulfate 2 mg Q30M PRN IV 11/13/24 21:45 Amino Acids 0 ml @ 0 mls/hr PER PHARMACY IV 11/13/24 22:30 Amino Acids/ Electrolytes/ Dextrose 1,000 ml @ 41 mls/hr DAILY@2200 IV 11/14/24 22:00 11/15/24 21:59 11/14/24 20:52 41 MLS/HR Acetaminophen 650 mg Q6HP PRN PO 11/15/24 01:00 Fat Emulsion Intravenous 100 ml/Sodium Acetate 20 meq/Potassium Acetate 10 meq/ Potassium Phosphate 20 meq/ Multivitamins 10 ml/Chromium/ Copper/Manganese/ Zinc 1 ml/Amino Acids/Dextrose/ Purified Water 1,130.5455 ml @ 47 mls/hr Q24H4M IV 11/15/24 22:00 11/16/24 21:59 Laboratory Results Laboratory Tests 11/13/24 22:22 11/15/24 04:21 Chemistry Test 11/15/24 04:21 Albumin 4.2 g/dL (3.2-4.8) Calcium Level 9.6 mg/dL (8.7-10.4) Magnesium Level 2.4 mg/dL (1.6-2.6) Phosphorus Level 2.4 mg/dL (2.4-5.1) Coagulation Test 11/14/24 19:28 Prothrombin Time 10.4 sec (9.3-11.8) Prothrombin Time INR 0.98 (0.9-1.15) Activated Partial Thromboplast Time 21.6 SEC (24.5-34.5) L Lipid panel Test 11/14/24 16:55 Cholesterol Level 234 mg/dL (< 200) H HDL Cholesterol 66 mg/dL (40-59) H Triglycerides Level 133 mg/dL (< 150) HgA1c, TSH Test 11/14/24 16:13 11/14/24 16:55 Hemoglobin A1c 5.8 % A1C (<5.7) H Thyroid Stimulating Hormone (TSH) 3.13 uIU/mL (0.55-4.78) Urinalysis Test 11/14/24 02:00 Urine Color Light-yellow (Yellow) Urine Clarity Turbid (Clear) H Urine pH 6.0 (5.0-9.0) Urine Specific [place] 1.026 (1.001-1.035) Urine Protein 1+ (Negative) H Urine Ketones 4+ (Negative) H Urine Blood Negative /uL (Negative) Urine Nitrite Negative (Negative) Urine Bilirubin Negative (Negative) Urine Urobilinogen Normal mg/dL (Negative) Urine Leukocyte Esterase Negative /uL (Negative) Urine RBC None seen /hpf (0 - 4) Urine Microscopic WBC 2 /HPF (0-5) Urine Squamous Epithelial Cells Mod /hpf (<5) Urine Bacteria None seen /hpf (None Seen) Urine Hyaline Casts Few /lpf (0 - 2) Urine Mucus Few (None Seen) Urine Glucose Normal mg/dL (Normal) Microbiology Microbiology Date/Time Source Procedure Growth Status 11/13/24 23:00 Nose MRSA Screen - Final Complete Labs and/or images reviewed: Labs reviewed by me, Image(s) reviewed by me Assessment/Plan Assessment/Plan Impression: -acute CVA involving the tobias -history of CVA -diabetes mellitus -accelerated hypertension -paroxysmal atrial fibrillation -metabolic acidosis Plan: Events: Patient had BECKY with bubble study. Noted immediate crossing of bubbles to left atrium and left ventricle. Discussed case with java security architect who recommends patient being transferred to higher level of care for structural cardiology for closure of the septal defect. -social service consultation for transfer to higher level of care -continue TPN -speech therapy for swallow evaluation -continue IV nutrition as previously ordered -regular insulin sliding scale -continue IV fluids given elevated serum ketones -consider barium swallow evaluation of speech therapist is not available by tomorrow Total time spent with patient discussing and formulating plan of care: 35 minutes. This medical document was created using an electronic medical record system with [employer] dictation system. Although this document has been carefully reviewed, there may still be some phonetic and typographical errors. These areas are purely typographical due to imperfections of the software programs, and do not reflect any compromise in the patient's medical care. Plan discussed with: Patient, Other (RN) My Orders Orders - RY ANAYA NP Procedure Category Date Status Time * Analytical Consultant CONS 11/15/24 Transmitted Consult Imaging Transfer ORDERS 11/15/24 Transmitted Request 14:16 Date of Service: Nov 15, 2024 Billing Provider: RY ANAYA NP Common Visit Codes: [id number] INP/OBS CARE(HIGH) RY ANAYA NP Nov 15, 2024 16:01
[2024-11-15] MEDS: PPN PER PHARMACY IV NR (21:43)
--- NOTE | 2024-11-15 22:45 | DVHINCON2 ---
Date of service: Nov 15, 2024 Referring Physician Lupillo Reason for Consultation CVA History of Present Illness Ms. Rizo hypertension, diabetes, dyslipidemia, obesity, he was transferred from the [facility] with a chief company of altered mental status. At this time, she is awake, but is only oriented to person, place, he does not know why he came to the hospital I saw her on 06/23/2023 for dizziness/CVA Apparently, on 11/11/2024, he she developed blurry vision, right facial droop, speech difficulty, dysphagia, the patient was brought to the [facility] where MRI confirmed two small pontine strokes According to my consultation note dated on 06/23/2023, in 01/2023, she developed right-sided weakness, the patient was seen in a local hospital in the [place], and she was said to have TIA, she was recommended to take aspirin for stroke prevention When I saw her on 06/23/2023, the patient was on donepezil events so there was no convincing evidence of Alzheimer disease, but on 11/15/2024, the patient symptoms class clinical picture is suggestive of dementia [facility] CTA head, neck, 11/11/2024: Negative CTA of the head and neck without obvious aneurysm, dissection, moderate/large arterial occlusion or critical stenosis MRI brain, 11/13/2024: 2 small foci of acute infarcts in the ventral and dorsal left paramedial tobias CBC, 11/13/2024: Unremarkable HGB A1c, 11/14/2024: 5.8 BUN/CR, 11/14/2024: 26/1.28 Liver function tests, 11/14/2024: Unremarkable TG/CHO L/LDL/HDL, 06/2023: 203/2046/152/64, 11/14/2024: 133/234/144/66 Vitamin B12, 06/2019 4:247 Folic acid, 06/2023: 18.31 TSH, :3.13 BECKY, 11/15/2024: Technically good study. Patient in a sinus rhythm. Left atrial enlargement. No intra-atrial or intraventricular septal defects identified. Valves are normal. Left ventricular function is preserved at 55% with normal right ventricular function. Dopplers unremarkable. Mild tricuspid regurgitation. There were no PFO and or atrial septal defect abnormalities noted on Doppler. no ventricular septal defect or abnormal shunting noted on Doppler. Bubble study confirms immediate crossover of bubbles into the left atrium and ventricle upon injection of agitated saline. Bubble study confirms intra- atrial defect and/or patent foramina ovale not delineated by Doppler or visual drop out. Clinical correlation highly recommended. Consider further evaluation with 3D intracardiac ECHO. No intracardiac masses and/or vegetations discernible. No pericardial effusion noted. Transgastric views are unremarkable. Carotid Doppler, 11/14/2024: 1. No evidence of hemodynamically significant stenosis within the bilateral carotid arterial systems. 2. Antegrade flow within bilateral vertebral arteries. CT head, 06/22/2023: Hypodense area over the left parietotemporal region and right occipital region which may represent areas of infarct of unknown chronicity. MRI is recommended for further evaluation. Mild to moderate centrum semiovale and kebede radiata hypodensities which may represent chronic small vessel ischemic changes with underlying infarct not excluded. Right basilar ganglia suggested chronic lacunar infarct. Nonspecific partially empty sella CT head, neck, 06/22/2023: 1. Chronic appearing infarcts, better seen on CT evaluation earlier same date. If there is persistent clinical concern for acute infarction, MRI brain without contrast suggested. 2. No evidence of hemodynamically significant intracranial stenosis, proximal occlusion or a neurysm in the nikolai of [place]. 3. No evidence of hemodynamically significant cervical stenosis or dissection in the neck MRI head, 06/23/2023: No acute infarct, mass effect or acute intracranial hemorrhage.(There is an old right cerebellar infarct. Chronic right basal ganglia lacunar infarct. Old left temporoparietal infarct.) Past Medical History Hypertension, diabetes, dyslipidemia, obesity. She does not snore Past Surgical History Cholecystectomy, tubal ligation Family History: Asthma G8 MOTHER FH: dementia G8 MOTHER Family History Hypertension, arthritis, dementia, Social History She is nontobacco smoker, she has no history of alcohol recreational substance abuse Allergies: Uncoded Allergies: NKA (Allergy, Unknown, 11/13/24) NKA Home Meds Active Scripts Amlodipine Besylate (Amlodipine Besylate) 10 Mg Tab, 1 TAB PO DAILY for 60 Days, #60 TAB Prov:RY ANAYA MULTIPLE PUNCH PRESS OPERATOR 06/23/23 Metoprolol Succinate (Metoprolol Succinate Er) 25 Mg Tab, 1 TAB PO DAILY for 60 Days, #60 TAB Prov:RY ANAYA MULTIPLE PUNCH PRESS OPERATOR 06/23/23 Reported Medications Pantoprazole Sodium Sesquihydr (Pantoprazole Sodium) 40 Mg Tab, 1 TAB PO DAILY 06/23/23 Donepezil Hydrochloride (DONEPEZIL HCL) 5 Mg Tab, 1 TAB PO DAILY 06/23/23 Clopidogrel Bisulfate (CLOPIDOGREL) 75 Mg Tab, 1 TAB PO DAILY 06/23/23 Glipizide (Glipizide Er) 2.5 Mg Tab, 1 TAB PO DAILY 06/23/23 Rosuvastatin Calcium (Rosuvastatin Calcium) 40 Mg Tab, 1 TAB PO DAILY 06/23/23 Current Medications Current Medications Medications (Trade) Dose Ordered Sig/Tasia Route PRN Reason Start Time Stop Time Status Last Admin Acetaminophen (Tylenol Tablet) 650 mg Q6HP PRN PO PAIN SCALE 1-3 OR TEMP>100.4 11/15/24 01:00 Fat Emulsion Intravenous 100 ml/Sodium Acetate 20 meq/Potassium Acetate 10 meq/ Potassium Phosphate 20 meq/ Multivitamins 10 ml/Chromium/ Copper/Manganese/ Zinc 1 ml/Amino Acids/Dextrose/ Purified Water 1,130.5455 ml @ 47 mls/hr Q24H4M IV 11/15/24 22:00 11/16/24 21:59 11/15/24 21:43 Review of Systems As above, the other system negative Vital Signs Vital Signs Date Time Temp Pulse Resp B/P (MAP) Pulse Ox O2 Delivery O2 Flow Rate FiO2 11/15/24 22:09 159/76 11/15/24 21:00 97.7 68 17 95 97.7 11/15/24 08:24 Room Air* 0 21 Physical Exam GENERAL EXAM: General: the patient is well developed and nourished. No acute distress. HEENT: Normocephalic, neck is supple, no carotid bruits. No mass. RESPIRATORY: Normal respiratory effort with symmetrical lung expansion. Lungs clear to auscultation. CARDIOVASCULAR: Regular rate and rhythm with no murmurs. S1, S2. ABDOMEN: Soft, nontender, normal bowel sound NEUROLOGICAL: MENTAL STATUS: Awake and alert. Oriented to person, place, time and general circumstances. Able to give personal history SPEECH, LANGUAGE, HIGHER CORTICAL FUNCTION: no aphasia or dysathria. CRANIAL NERVES: #2: Intact visual sinclair to confrontation. The optic discs were sharp #3,4,6: Pupils are equal, round and reactive. EOMs full and conjugate. No nystagmus. #5: Facial sensation intact in all three divisions bilaterally. Mandibular strength intact. #7: Facial muscles symmetrical and strength intact. #8: Hearing grossly normal to voice. #9,10: Uvula and soft palate rise in the midline. Swallow and voice are normal. #11: Trapezius and sternomastoid strength intact bilaterally. #12: Tongue midline. No fasciculations or atrophy. SENSATION: Sensation to touch and pinprick is normal. MOTOR: Normal tone in the upper and lower extremity. Normal muscle bulk. No fasciculations. No abnormal movements or posturing. Muscle strength of the major groups in the upper extremities is 5/5. Muscle strength of the major groups in the lower extremities is 5/5. REFLEXES: Deep tendon reflexes are symmetrical. No pathological reflexes. CEREBELLAR/COORDINATION: Finger to nose is normal bilaterally. GAIT/STATION: deferred Labs/Diagnostic Data Labs Test 11/15/24 17:30 11/15/24 04:21 11/14/24 19:28 11/14/24 16:55 Range/Units POC Glucose 146 H 70-106 mg/dl Sodium Level 138 # 136-145 mmol/L Potassium Level 3.6 3.5-5.1 mmol/L Chloride Level 109 H 98-107 mmol/L Carbon Dioxide Level 14 L 20-31 mmol/L Anion Gap 15 5-15 Blood Urea Nitrogen 19 9-23 mg/dL Creatinine 1.13 H 0.550-1.02 mg/dL Glomerular Filtration Rate Calc 49 >90 mL/min Estimated GFR () 60 mL/min Estimated GFR (Non- 49 mL/min BUN/Creatinine Ratio 16.8 10.0-20.0 Serum Glucose 128 H 74-106 mg/dL Calcium Level 9.6 8.7-10.4 mg/dL Phosphorus Level 2.4 2.4-5.1 mg/dL Magnesium Level 2.4 1.6-2.6 mg/dL Albumin 4.2 3.2-4.8 g/dL Prothrombin Time 10.4 9.3-11.8 sec Prothrombin Time INR 0.98 0.9-1.15 Activated Partial Thromboplast Time 21.6 L 24.5-34.5 SEC Triglycerides Level 133 < 150 mg/dL Cholesterol Level 234 H < 200 mg/dL LDL Cholesterol 144 H < 100 mg/dL HDL Cholesterol 66 H 40-59 mg/dL Beta-Hydroxybutyric Acid 1.872 H < 0.4 mmol/L Thyroid Stimulating Hormone (TSH) 3.13 0.55-4.78 uIU/mL Test 11/14/24 16:13 11/14/24 06:48 11/14/24 02:00 11/13/24 22:22 Range/Units Hemoglobin A1c 5.8 H <5.7 % A1C Total Bilirubin 0.7 0.2-1.0 mg/dL Aspartate Amino Transferase (AST) 21 13-40 U/L Alanine Aminotransferase (ALT) 14 7-40 U/L Alkaline Phosphatase 109 46-116 U/L Total Protein 7.2 5.7-8.2 g/dL Hepatitis B Surface Antigen Negative Negative Hepatitis C Antibody Negative Negative Urine Color Light-yellow Yellow Urine Clarity Turbid H Clear Urine pH 6.0 5.0-9.0 Urine Specific [place] 1.026 1.001-1.035 Urine Protein 1+ H Negative Urine Ketones 4+ H Negative Urine Blood Negative Negative /uL Urine Nitrite Negative Negative Urine Bilirubin Negative Negative Urine Urobilinogen Normal Negative mg/dL Urine Leukocyte Esterase Negative Negative /uL Urine RBC None seen 0 - 4 /hpf Urine Microscopic WBC 2 0-5 /HPF Urine Squamous Epithelial Cells Mod <5 /hpf Urine Bacteria None seen None Seen /hpf Urine Hyaline Casts Few 0 - 2 /lpf Urine Mucus Few None Seen Urine Glucose Normal Normal mg/dL White Blood Count 5.3 4.4-10.8 10^3/uL Red Blood Count 4.86 4.0-5.20 10^6/uL Hemoglobin 15.9 12.2-16.2 g/dL Hematocrit 46.3 H 36.0-46.0 % Mean Corpuscular Volume 95.2 80.0-100.0 fL Mean Corpuscular Hemoglobin 32.6 H 28.0-32.0 pg Mean Corpuscular Hemoglobin Concent 34.3 32.0-36.0 g/dL Red Cell Distribution Width 14.5 H 11.8-14.3 % Platelet Count 238 140-450 10^3/uL Mean Platelet Volume 8.9 6.9-10.8 fL Neutrophils (%) (Auto) 69.1 37.0-80.0 % Lymphocytes (%) (Auto) 19.4 10.0-50.0 % Monocytes (%) (Auto) 9.8 0.0-12.0 % Eosinophils (%) (Auto) 1.1 0.0-7.0 % Basophils (%) (Auto) 0.6 0.0-2.0 % Neutrophils # (Auto) 3.7 1.6-8.6 10 ^3/uL Lymphocytes # (Auto) 1.0 0.4-5.4 10 ^3/uL Monocytes # (Auto) 0.5 0-1.3 10 ^3/uL Eosinophils # (Auto) 0.1 0-0.8 10 ^3/uL Basophils # (Auto) 0 0-0.2 10 ^3/uL Nucleated Red Blood Cells 0.1 % Troponin I High Sensitivity 6 </=34 ng/L Microbiology Date/Time Source Procedure Growth Status 11/13/24 23:00 Nose MRSA Screen - Final Complete Assessment Acute pontine stroke on 11/11/2024 with blurry vision, right facial droop, speech difficulty, dysphagia Stroke in 01/2023 with good recovery Multiple strokes per CT/MRI scan Cognitive dysfunction/dementia Plan/Recommendation Monitoring Supportive treatment Telemetry Aspirin 300mg [place]/81 mg daily Lipitor 80 mg daily DVT prophylaxis/Lovenox Speech pathology evaluation Up to chair Physical therapy Further address cognitive deficits/dementia as outpatient More recommendation per clinical course This medical document was created using an electronic medical record system with [employer] dictation system. Although this document has been carefully reviewed, there may still be some phonetic and typographical errors. These areas are purely typographical due to imperfections of the software programs, and do not reflect any compromise in the patient's medical care. Plan discussed with: Other IVAN VAUGHAN MD Nov 15, 2024 22:45
[2024-11-16] VITALS (8 sets, daily range): BP systolic 127–153; BP diastolic 70–90; PULSE 71–94; RESP 16–20; TEMP 97.3–98.3; O2SAT 94–98
[2024-11-16 07:17] LABS: Alanine Aminotransferase 11 U/L (7-40); Albumin 4.2 g/dL (3.2-4.8); Alkaline Phosphatase 101 U/L (46-116); Anion Gap 14 (5-15); Aspartate Aminotransferase 18 U/L (<34); BUN/Creatinine Ratio 22.5 (10.0-20.0); Bilirubin, Total 1.1 mg/dL (0.2-1.0); Calcium 9.5 mg/dL (8.7-10.4); Phosphorus 3.1 mg/dL (2.4-5.1); Sodium 140 mmol/L (136-145); Total Protein 6.8 g/dL (5.7-8.2)
[2024-11-16 07:26] LABS: Blood Urea Nitrogen 29 mg/dL (9-23); Carbon Dioxide 17 mmol/L (20-31); Chloride 109 mmol/L (98-107); Glucose 119 mg/dL (74-106); Potassium 3.2 mmol/L (3.5-5.1)
[2024-11-16] MEDS ORDERED: POTASSIUM PHOSPHATE 11 MEQ in SODIUM CHL 0.9% 100 ML IV ONE (13:30)
[2024-11-16 15:01] LABS: Basophils # (auto) 0 10 ^3/uL (0-0.2); Basophils % (auto) 0.4 % (0.0-2.0); Eosinophils # (auto) 0.1 10 ^3/uL (0-0.8); Hematocrit 48.2 % (36.0-46.0); Hemoglobin 16.5 g/dL (12.2-16.2); Lymphocytes # (auto) 1.4 10 ^3/uL (0.4-5.4); Lymphocytes % (auto) 18.4 % (10.0-50.0); Mean Corpuscular Hemoglobin 32.5 pg (28.0-32.0); Mean Corpuscular Hgb Conc. 34.4 g/dL (32.0-36.0); Mean Corpuscular Volume 94.5 fL (80.0-100.0); Monocytes # (auto) 0.9 10 ^3/uL (0-1.3); Monocytes % (auto) 11.4 % (0.0-12.0); Neutrophils # (auto) 5.2 10 ^3/uL (1.6-8.6); Neutrophils % (auto) 68.8 % (37.0-80.0); Nucleated Red Blood Cells % 0.1 %; Platelet Count (auto) 223 10^3/uL (140-450); Red Cell Distribution Width 14.3 % (11.8-14.3); White Blood Cell 7.5 10^3/uL (4.4-10.8)
[2024-11-16 15:36] LABS: INR 0.99 (0.9-1.15); Partial Thromboplastin Time 30.8 SEC (24.5-34.5); Prothrombin Time 10.5 sec (9.3-11.8)
--- NOTE | 2024-11-16 15:42 | DVHPN2 ---
Subjective Patient continues to report having trouble swallowing. Reviewed: Care Plan, H&P, Labs, Medications Changes from previous H/P or p: No Changes General: Per HPI Objective Vitals Vital Signs Date Time Temp Pulse Resp B/P (MAP) Pulse Ox O2 Delivery O2 Flow Rate FiO2 11/16/24 12:30 98.3 82 18 130/73 (92) 94 98.3 11/16/24 07:30 Room Air* 0 21 Intake/Output Intake and Output 11/16/24 07:00 Intake Total 0 ml Balance 0 ml Intake Oral 0 ml # Voids 4 General Appearance: Alert, Oriented X3, Cooperative, No acute distress HEENT: Atraumatic, PERRLA Lungs: Clear to auscultation, Normal air movement Cardiovascular: Normal S1, Normal S2 Musculoskeletal: Normal sensory function, Normal motor function Extremities: No clubbing, No cyanosis Neuro: Normal gait, Normal speech Skin: Dry, Intact Psych/Mental Status: Mental status NL, Mood NL Medications Current Medications Medications Dose Ordered Sig/Tasia Route Start Time Stop Time Status Last Admin Dose Admin Hydralazine HCl 10 mg Q6HP PRN IV 11/13/24 21:45 11/15/24 22:09 10 MG Dextrose/Sodium Chloride 1,000 ml @ 75 mls/hr [id number] IV 11/13/24 21:45 11/15/24 13:54 75 MLS/HR Diagnostic Test (Pha) 1 strip Q6HR 11/14/24 00:00 11/16/24 12:15 1 STRIP Insulin Human Regular Q6HR SC 11/14/24 00:00 11/16/24 06:11 2 UNITS Dextrose 50 ml UD PRN IV 11/13/24 21:45 Ondansetron HCl 4 mg Q4HP PRN IV 11/13/24 21:45 Enoxaparin Sodium 30 mg DAILY SC 11/14/24 10:00 11/16/24 09:35 30 MG Nitroglycerin 0.4 mg Q5MINP PRN SL 11/13/24 21:45 Morphine Sulfate 2 mg Q30M PRN IV 11/13/24 21:45 Amino Acids 0 ml @ 0 mls/hr PER PHARMACY IV 11/13/24 22:30 Acetaminophen 650 mg Q6HP PRN PO 11/15/24 01:00 Fat Emulsion Intravenous 100 ml/Sodium Acetate 20 meq/Potassium Acetate 10 meq/ Potassium Phosphate 20 meq/ Multivitamins 10 ml/Chromium/ Copper/Manganese/ Zinc 1 ml/Amino Acids/Dextrose/ Purified Water 1,130.5455 ml @ 47 mls/hr Q24H4M IV 11/15/24 22:00 11/16/24 21:59 11/15/24 21:43 47 MLS/HR Fat Emulsion Intravenous 100 ml/Sodium Acetate 10 meq/Potassium Acetate 30 meq/ Potassium Phosphate 11 meq/ Magnesium Sulfate 4 meq/ Multivitamins 10 ml/Chromium/ Copper/Manganese/ Zinc 1 ml/Amino Acids/Dextrose/ Purified Water 1,334.5 ml @ 56 mls/hr [id number] IV 11/16/24 22:00 11/17/24 21:59 Laboratory Results Laboratory Tests 11/16/24 05:43 Chemistry Test 11/16/24 05:43 Albumin 4.2 g/dL (3.2-4.8) Calcium Level 9.5 mg/dL (8.7-10.4) Magnesium Level 2.0 mg/dL (1.6-2.6) Phosphorus Level 3.1 mg/dL (2.4-5.1) Total Protein 6.8 g/dL (5.7-8.2) Coagulation Test 11/16/24 14:53 Prothrombin Time 10.5 sec (9.3-11.8) Prothrombin Time INR 0.99 (0.9-1.15) Activated Partial Thromboplast Time 30.8 SEC (24.5-34.5) LFT Test 11/16/24 05:43 Alanine Aminotransferase (ALT) 11 U/L (7-40) Alkaline Phosphatase 101 U/L (46-116) Aspartate Amino Transferase (AST) 18 U/L (<34) Total Bilirubin 1.1 mg/dL (0.2-1.0) H Urinalysis Test 11/14/24 02:00 Urine Color Light-yellow (Yellow) Urine Clarity Turbid (Clear) H Urine pH 6.0 (5.0-9.0) Urine Specific [place] 1.026 (1.001-1.035) Urine Protein 1+ (Negative) H Urine Ketones 4+ (Negative) H Urine Blood Negative /uL (Negative) Urine Nitrite Negative (Negative) Urine Bilirubin Negative (Negative) Urine Urobilinogen Normal mg/dL (Negative) Urine Leukocyte Esterase Negative /uL (Negative) Urine RBC None seen /hpf (0 - 4) Urine Microscopic WBC 2 /HPF (0-5) Urine Squamous Epithelial Cells Mod /hpf (<5) Urine Bacteria None seen /hpf (None Seen) Urine Hyaline Casts Few /lpf (0 - 2) Urine Mucus Few (None Seen) Urine Glucose Normal mg/dL (Normal) Microbiology Microbiology Date/Time Source Procedure Growth Status 11/13/24 23:00 Nose MRSA Screen - Final Complete Labs and/or images reviewed: Labs reviewed by me, Image(s) reviewed by me Assessment/Plan Assessment/Plan Impression: -acute CVA involving the tobias -history of CVA -diabetes mellitus -accelerated hypertension -paroxysmal atrial fibrillation -metabolic acidosis Plan: Events: Continues to have difficulty with oral intake. Speech therapist not available at this hospital right now. Continue TPN. PICC line placement. Social service continues to attempt to find facility for structural Cardiology for closure of septal defect -potassium replacement -neurology consultation -social service consultation for transfer to higher level of care -continue TPN -speech therapy for swallow evaluation -continue IV nutrition as previously ordered -regular insulin sliding scale Total time spent with patient discussing and formulating plan of care: 35 minutes. This medical document was created using an electronic medical record system with [employer] dictation system. Although this document has been carefully reviewed, there may still be some phonetic and typographical errors. These areas are purely typographical due to imperfections of the software programs, and do not reflect any compromise in the patient's medical care. Plan discussed with: Patient, Other (RN) My Orders Orders - RY ANAYA NP Procedure Category Date Status Time Imaging Transfer ORDERS 11/16/24 Transmitted Request 09:04 * Picc Line Consult CONS 11/16/24 Transmitted 12:41 Complete Blood Count LAB 11/16/24 In Process 13:50 Date of Service: Nov 16, 2024 Billing Provider: RY ANAYA NP Common Visit Codes: [id number] INP/OBS CARE(HIGH) RY ANAYA NP Nov 16, 2024 15:42
[2024-11-16] MEDS: LIDOCAINE 1% (LOCAL ANESTH.) PF 5ml SDV ID ONE (17:20)
[2024-11-16] MEDS: POTASSIUM PHOSPHATE 22 MEQ in SODIUM CHL 0.9% 100 ML IV ONE (17:43)
--- NOTE | 2024-11-16 18:50 | DVHPN2 ---
Progress Note - Dictate Date Seen: Nov 16, 2024 Medical Necessity Reason Pt with a Central, PICC or Fol: No Subjective Ms. Rizo hypertension, diabetes, dyslipidemia, obesity, he was transferred from the [facility] to the [facility] on 11/13/2024 with a chief company of altered mental status. I saw her on 06/23/2023 for dizziness/CVA I have seen and examined the patient, I have discussed with her nurse, Dandy, she is doing better today, alert and fully oriented, no new complaints Echocardiogram showed evidence of intra-atrial defect, we tried to transfer patient to higher level care however no hospital has accepted her [facility] CTA head, neck, 11/11/2024: Negative CTA of the head and neck without obvious aneurysm, dissection, moderate/large arterial occlusion or critical stenosis MRI brain, 11/13/2024: 2 small foci of acute infarcts in the ventral and dorsal left paramedial tobias CBC, 11/13/2024: Unremarkable HGB A1c, 11/14/2024: 5.8 BUN/CR, 11/14/2024: 26/1.28 Liver function tests, 11/14/2024: Unremarkable TG/CHO L/LDL/HDL, 06/2023: 203/2046/152/64, 11/14/2024: 133/234/144/66 Vitamin B12, 06/2019 4:247 Folic acid, 06/2023: 18.31 TSH, :3.13 BECKY, 11/15/2024: Technically good study. Patient in a sinus rhythm. Left atrial enlargement. No intra-atrial or intraventricular septal defects identified. Valves are normal. Left ventricular function is preserved at 55% with normal right ventricular function. Dopplers unremarkable. Mild tricuspid regurgitation. There were no PFO and or atrial septal defect abnormalities noted on Doppler. no ventricular septal defect or abnormal shunting noted on Doppler. Bubble study confirms immediate crossover of bubbles into the left atrium and ventricle upon injection of agitated saline. Bubble study confirms intra- atrial defect and/or patent foramina ovale not delineated by Doppler or visual drop out. Clinical correlation highly recommended. Consider further evaluation with 3D intracardiac ECHO. No intracardiac masses and/or vegetations discernible. No pericardial effusion noted. Transgastric views are unremarkable. Carotid Doppler, 11/14/2024: 1. No evidence of hemodynamically significant stenosis within the bilateral carotid arterial systems. 2. Antegrade flow within bilateral vertebral arteries. CT head, 06/22/2023: Hypodense area over the left parietotemporal region and right occipital region which may represent areas of infarct of unknown chronicity. MRI is recommended for further evaluation. Mild to moderate centrum semiovale and kebede radiata hypodensities which may represent chronic small vessel ischemic changes with underlying infarct not excluded. Right basilar ganglia suggested chronic lacunar infarct. Nonspecific partially empty sella CT head, neck, 06/22/2023: 1. Chronic appearing infarcts, better seen on CT evaluation earlier same date. If there is persistent clinical concern for acute infarction, MRI brain without contrast suggested. 2. No evidence of hemodynamically significant intracranial stenosis, proximal occlusion or aneurysm in the [place] of [place]. 3. No evidence of hemodynamically significant cervical stenosis or dissection in the neck MRI head, 06/23/2023: No acute infarct, mass effect or acute intracranial hemorrhage.(There is an old right cerebellar infarct. Chronic right basal ganglia lacunar infarct. Old left temporoparietal infarct.) vital signs Vital Sign Date Time Temp Pulse Resp B/P (MAP) Pulse Ox O2 Delivery O2 Flow Rate FiO2 11/16/24 17:00 98.1 71 16 127/76 (93) 97 98.1 11/16/24 07:30 Room Air* 0 21 Total Intake and Output 11/15/24 11/15/24 11/16/24 15:00 23:00 07:00 Intake Total 0 ml 0 ml 0 ml Balance 0 ml 0 ml 0 ml medications Current Medications Medications Dose Ordered Sig/Tasia Route Start Time Stop Time Status Last Admin Dose Admin Hydralazine HCl 10 mg Q6HP PRN IV 11/13/24 21:45 11/15/24 22:09 10 MG Dextrose/Sodium Chloride 1,000 ml @ 75 mls/hr [id number] IV 11/13/24 21:45 11/16/24 17:52 75 MLS/HR Diagnostic Test (Pha) 1 strip Q6HR 11/14/24 00:00 11/16/24 17:35 1 STRIP Insulin Human Regular Q6HR SC 11/14/24 00:00 11/16/24 06:11 2 UNITS Dextrose 50 ml UD PRN IV 11/13/24 21:45 Ondansetron HCl 4 mg Q4HP PRN IV 11/13/24 21:45 Enoxaparin Sodium 30 mg DAILY SC 11/14/24 10:00 11/16/24 09:35 30 MG Nitroglycerin 0.4 mg Q5MINP PRN SL 11/13/24 21:45 Morphine Sulfate 2 mg Q30M PRN IV 11/13/24 21:45 Amino Acids 0 ml @ 0 mls/hr PER PHARMACY IV 11/13/24 22:30 Acetaminophen 650 mg Q6HP PRN PO 11/15/24 01:00 Fat Emulsion Intravenous 100 ml/Sodium Acetate 20 meq/Potassium Acetate 10 meq/ Potassium Phosphate 20 meq/ Multivitamins 10 ml/Chromium/ Copper/Manganese/ Zinc 1 ml/Amino Acids/Dextrose/ Purified Water 1,130.5455 ml @ 47 mls/hr Q24H4M IV 11/15/24 22:00 11/16/24 21:59 11/15/24 21:43 47 MLS/HR Fat Emulsion Intravenous 100 ml/Sodium Acetate 10 meq/Potassium Acetate 30 meq/ Potassium Phosphate 11 meq/ Magnesium Sulfate 4 meq/ Multivitamins 10 ml/Chromium/ Copper/Manganese/ Zinc 1 ml/Amino Acids/Dextrose/ Purified Water 1,334.5 ml @ 56 mls/hr [id number] IV 11/16/24 22:00 11/17/24 21:59 Sodium Chloride 10 ml QSHIFT@10,22 IV 11/16/24 22:00 objective General: the patient is well developed and nourished. No acute distress. MENTAL STATUS: Subjective SPEECH, LANGUAGE, HIGHER CORTICAL FUNCTION: no aphasia or dysathria. CRANIAL NERVES: Pupils are equal, round and reactive. EOMs full and conjugate. No nystagmus. Facial sensation intact in all three divisions bilaterally. Mandibular strength intact. Facial muscles symmetrical and strength intact. SENSATION: Sensation to touch and pinprick is normal. MOTOR: Normal tone in the upper and lower extremity. Normal muscle bulk. No fasciculations. No abnormal movements or posturing. Muscle strength of the major groups in the extremities is 4-5/5, possibly weaker on the right side. REFLEXES: Deep tendon reflexes are symmetrical. No pathological reflexes. CEREBELLAR/COORDINATION: Finger to nose is normal bilaterally. 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 with blurry vision, right facial droop, speech difficulty, dysphagia Stroke in 01/2023 with good recovery Multiple strokes per CT/MRI scan Cognitive dysfunction/dementia Atrial septal defect Assessment/Plan Monitoring Supportive treatment Telemetry Aspirin 300mg UT/81 mg daily Lipitor 80 mg daily DVT prophylaxis/Lovenox Speech pathology evaluation Up to chair Physical therapy Further address cognitive deficits/dementia as outpatient Transfer to higher level care Re: Intra-atrial defect More recommendation per clinical course This medical document was created using an electronic medical record system with [employer] dictation system. Although this document has been carefully reviewed, there may still be some phonetic and typographical errors. These areas are purely typographical due to imperfections of the software programs, and do not reflect any compromise in the patient's medical care. Prognosis poor Dietary Evaluation Review Comments: Advance TPN to meet >75% estimated needs Monitor TPN tolerance, weight trend, lab values Expected Outcomes/Goals: To meet > 75% estimated needs fu 2-3 days Plan discussed with: Other IVAN VAUGHAN MD Nov 16, 2024 18:50
[2024-11-16] MEDS: SODIUM CHLOR 0.9% PF (SALINE LOCK) 10ML VIAL/SYR IV SCH (22:00)
[2024-11-17] VITALS (9 sets, daily range): BP systolic 122–155; BP diastolic 62–89; PULSE 71–96; RESP 16–17; TEMP 97.3–97.8; O2SAT 95–100
[2024-11-17 07:16] LABS: Alanine Aminotransferase 13 U/L (7-40); Albumin 3.9 g/dL (3.2-4.8); Alkaline Phosphatase 95 U/L (46-116); Anion Gap 15 (5-15); Aspartate Aminotransferase 19 U/L (<34); BUN/Creatinine Ratio 23.2 (10.0-20.0); Calcium 9.8 mg/dL (8.7-10.4); Magnesium 1.8 mg/dL (1.6-2.6); Phosphorus 3.8 mg/dL (2.4-5.1); Sodium 142 mmol/L (136-145); Total Protein 6.3 g/dL (5.7-8.2)
[2024-11-17 07:34] LABS: Blood Urea Nitrogen 29 mg/dL (9-23); Carbon Dioxide 17 mmol/L (20-31); Chloride 110 mmol/L (98-107); Glucose 119 mg/dL (74-106); Potassium 3.3 mmol/L (3.5-5.1)
[2024-11-17] MEDS ORDERED: DEXTROSE (50%) 50ML SYRG IV SCH (11:00)
[2024-11-17] MEDS: InsuLIN REG 1unit/0.01ml Soln (100units/ml) SC SCH (11:51)
[2024-11-17] MEDS: POTASSIUM CHLORIDE 40 MEQ, LIDOCAINE 1% (LOCAL ANESTH.) 4 ML in SODIUM CHL 0.9% 250 ML IV ONE (11:51)
[2024-11-17] MEDS: ACCU-CHEK COMFORT CURVE STRIP VI SCH (11:51)
--- NOTE | 2024-11-17 14:04 | DVHPN2 ---
Subjective Patient continues to report having trouble swallowing. Reviewed: Care Plan, H&P, Labs, Medications Changes from previous H/P or p: No Changes General: Per HPI Objective Vitals Vital Signs Date Time Temp Pulse Resp B/P (MAP) Pulse Ox O2 Delivery O2 Flow Rate FiO2 11/17/24 12:30 97.5 71 16 155/77 (103) 95 97.5 11/17/24 07:45 Room Air* 0 21 Intake/Output Intake and Output 11/17/24 07:00 Intake Total 404 ml Output Total 210 ml Balance 194 ml Intake Oral 0 ml IV Total 404 ml Output Urine Total 210 ml # Voids 2 General Appearance: Alert, Oriented X3, Cooperative, No acute distress HEENT: Atraumatic, PERRLA Lungs: Clear to auscultation, Normal air movement Cardiovascular: Normal S1, Normal S2 Musculoskeletal: Normal sensory function, Normal motor function Extremities: No clubbing, No cyanosis Neuro: Normal gait, Normal speech Skin: Dry, Intact Psych/Mental Status: Mental status NL, Mood NL Medications Current Medications Medications Dose Ordered Sig/Tasia Route Start Time Stop Time Status Last Admin Dose Admin Hydralazine HCl 10 mg Q6HP PRN IV 11/13/24 21:45 11/17/24 11:50 10 MG Dextrose/Sodium Chloride 1,000 ml @ 75 mls/hr [id number] IV 11/13/24 21:45 11/16/24 17:52 75 MLS/HR Ondansetron HCl 4 mg Q4HP PRN IV 11/13/24 21:45 Enoxaparin Sodium 30 mg DAILY SC 11/14/24 10:00 11/17/24 08:41 30 MG Nitroglycerin 0.4 mg Q5MINP PRN SL 11/13/24 21:45 Morphine Sulfate 2 mg Q30M PRN IV 11/13/24 21:45 Amino Acids 0 ml @ 0 mls/hr PER PHARMACY IV 11/13/24 22:30 Acetaminophen 650 mg Q6HP PRN PO 11/15/24 01:00 Fat Emulsion Intravenous 100 ml/Sodium Acetate 10 meq/Potassium Acetate 30 meq/ Potassium Phosphate 11 meq/ Magnesium Sulfate 4 meq/ Multivitamins 10 ml/Chromium/ Copper/Manganese/ Zinc 1 ml/Amino Acids/Dextrose/ Purified Water 1,334.5 ml @ 56 mls/hr [id number] IV 11/16/24 22:00 11/17/24 21:59 11/17/24 00:32 56 MLS/HR Sodium Chloride 10 ml QSHIFT@10,22 IV 11/16/24 22:00 11/17/24 08:41 10 ML Diagnostic Test (Pha) 1 strip Q6HR 11/17/24 12:00 11/17/24 11:51 1 STRIP Insulin Human Regular FOLLOW SLIDING SCALE Q6HR SC 11/17/24 12:00 11/17/24 11:51 2 UNITS Dextrose 50 ml UD IV 11/17/24 11:00 Fat Emulsion Intravenous 100 ml/Sodium Acetate 20 meq/Potassium Acetate 60 meq/ Magnesium Sulfate 8 meq/ Multivitamins 10 ml/Chromium/ Copper/Manganese/ Zinc 1 ml/Amino Acids/Dextrose/ Purified Water 1,303 ml @ 54 mls/hr Q24H8M IV 11/17/24 22:00 11/18/24 21:59 Laboratory Results Laboratory Tests 11/16/24 14:53 11/17/24 05:56 Chemistry Test 11/17/24 05:56 Albumin 3.9 g/dL (3.2-4.8) Calcium Level 9.8 mg/dL (8.7-10.4) Magnesium Level 1.8 mg/dL (1.6-2.6) Phosphorus Level 3.8 mg/dL (2.4-5.1) Total Protein 6.3 g/dL (5.7-8.2) Coagulation Test 11/16/24 14:53 Prothrombin Time 10.5 sec (9.3-11.8) Prothrombin Time INR 0.99 (0.9-1.15) Activated Partial Thromboplast Time 30.8 SEC (24.5-34.5) LFT Test 11/17/24 05:56 Alanine Aminotransferase (ALT) 13 U/L (7-40) Alkaline Phosphatase 95 U/L (46-116) Aspartate Amino Transferase (AST) 19 U/L (<34) Total Bilirubin 1.0 mg/dL (0.2-1.0) Urinalysis Test 11/14/24 02:00 Urine Color Light-yellow (Yellow) Urine Clarity Turbid (Clear) H Urine pH 6.0 (5.0-9.0) Urine Specific [place] 1.026 (1.001-1.035) Urine Protein 1+ (Negative) H Urine Ketones 4+ (Negative) H Urine Blood Negative /uL (Negative) Urine Nitrite Negative (Negative) Urine Bilirubin Negative (Negative) Urine Urobilinogen Normal mg/dL (Negative) Urine Leukocyte Esterase Negative /uL (Negative) Urine RBC None seen /hpf (0 - 4) Urine Microscopic WBC 2 /HPF (0-5) Urine Squamous Epithelial Cells Mod /hpf (<5) Urine Bacteria None seen /hpf (None Seen) Urine Hyaline Casts Few /lpf (0 - 2) Urine Mucus Few (None Seen) Urine Glucose Normal mg/dL (Normal) Microbiology Microbiology Date/Time Source Procedure Growth Status 11/13/24 23:00 Nose MRSA Screen - Final Complete Labs and/or images reviewed: Labs reviewed by me, Image(s) reviewed by me Assessment/Plan Assessment/Plan Impression: -acute CVA involving the tobias -history of CVA -diabetes mellitus -accelerated hypertension -paroxysmal atrial fibrillation -metabolic acidosis Plan: Events: Patient denied transfer by two different cardiologists, one by [facility] in the other by [facility] [place]. This was discussed with the patient. At this time there will be no transfer for closure of septal defect. Patient awaiting swallow evaluation by speech therapy. Discussed with the patient that if she is unable to swallow, consideration needs to be made for PEG tube placement. -potassium replacement -neurology consultation -social service consultation for transfer to higher level of care -continue TPN -speech therapy for swallow evaluation -regular insulin sliding scale Total time spent with patient discussing and formulating plan of care: 35 minutes. This medical document was created using an electronic medical record system with [email or web address] dictation system. Although this document has been carefully reviewed, there may still be some phonetic and typographical errors. These areas are purely typographical due to imperfections of the software programs, and do not reflect any compromise in the patient's medical care. Plan discussed with: Patient, Other (RN) My Orders Orders - RY ANAYA [employer]ER Procedure Category Date Status Time Nursing Protocol Picc NABIL 11/16/24 In Process 17:08 Change Dressing Prn NABIL 11/16/24 In Process 17:08 PICC BD 11/16/24 Transmitted 17:08 Sodium Chloride Lock PHA 11/16/24 In Process (Saline Lock Ns) 22:00 Do Not Use Picc For NABIL 11/16/24 In Process Blood Cult 17:08 May Draw Blood From [facility] 11/16/24 In Process Picc 17:08 Ok To Use Picc [facility] 11/16/24 In Process 17:08 Change Picc Dressing [facility] 11/16/24 In Process Q7 Days 17:08 * Swallow Request ST 11/17/24 Transmitted 12:05 Ketorolac Injection PHA 11/17/24 Logged (Toradol Injection) 14:00 Date of Service: Nov 17, 2024 Billing Provider: RY ANAYA NP Common Visit Codes: [id number] INP/OBS CARE(HIGH) RY ANAYA NP Nov 17, 2024 14:04
[2024-11-17] MEDS: KETOROLAC TROMETH 30 MG/ML 1ML VIAL IV ONE (14:19)
[2024-11-17] MEDS: TPN PER PHARMACY IV NR (22:45)
[2024-11-18] VITALS (8 sets, daily range): BP systolic 133–167; BP diastolic 73–87; PULSE 64–87; RESP 15–20; TEMP 97.8–98.5; O2SAT 93–98
[2024-11-18 09:34] LABS: Alanine Aminotransferase 18 U/L (7-40); Albumin 3.8 g/dL (3.2-4.8); Alkaline Phosphatase 101 U/L (46-116); Anion Gap 10 (5-15); Aspartate Aminotransferase 20 U/L (<34); BUN/Creatinine Ratio 22.7 (10.0-20.0); Bilirubin, Total 0.8 mg/dL (0.2-1.0); Calcium 9.7 mg/dL (8.7-10.4); Phosphorus 2.5 mg/dL (2.4-5.1); Potassium 4.3 mmol/L (3.5-5.1); Sodium 140 mmol/L (136-145); Total Protein 6.2 g/dL (5.7-8.2)
[2024-11-18 09:35] LABS: Blood Urea Nitrogen 25 mg/dL (9-23); Carbon Dioxide 19 mmol/L (20-31); Chloride 111 mmol/L (98-107); Glucose 141 mg/dL (74-106)
--- NOTE | 2024-11-18 13:10 | DVHPN2 ---
Subjective Patient continues to report having trouble swallowing. Reviewed: Care Plan, H&P, Labs, Medications Changes from previous H/P or p: No Changes General: Per HPI Objective Vitals Vital Signs Date Time Temp Pulse Resp B/P (MAP) Pulse Ox O2 Delivery O2 Flow Rate FiO2 11/18/24 12:20 98.5 68 15 157/73 (101) 95 98.5 11/17/24 20:00 Room Air* 0 21 Intake/Output Intake and Output 11/18/24 07:00 Intake Total 1548 ml Balance 1548 ml Intake Oral 0 ml IV Total 1548 ml # Voids 6 General Appearance: Alert, Oriented X3, Cooperative, No acute distress HEENT: Atraumatic, PERRLA Lungs: Clear to auscultation, Normal air movement Cardiovascular: Normal S1, Normal S2 Musculoskeletal: Normal sensory function, Normal motor function Extremities: No clubbing, No cyanosis Neuro: Normal gait, Normal speech Skin: Dry, Intact Psych/Mental Status: Mental status NL, Mood NL Medications Current Medications Medications Dose Ordered Sig/Tasia Route Start Time Stop Time Status Last Admin Dose Admin Hydralazine HCl 10 mg Q6HP PRN IV 11/13/24 21:45 11/18/24 11:42 10 MG Dextrose/Sodium Chloride 1,000 ml @ 75 mls/hr [id number] IV 11/13/24 21:45 11/18/24 10:48 75 MLS/HR Ondansetron HCl 4 mg Q4HP PRN IV 11/13/24 21:45 Enoxaparin Sodium 30 mg DAILY SC 11/14/24 10:00 11/18/24 10:49 30 MG Nitroglycerin 0.4 mg Q5MINP PRN SL 11/13/24 21:45 Morphine Sulfate 2 mg Q30M PRN IV 11/13/24 21:45 Amino Acids 0 ml @ 0 mls/hr PER PHARMACY IV 11/13/24 22:30 Acetaminophen 650 mg Q6HP PRN PO 11/15/24 01:00 Sodium Chloride 10 ml QSHIFT@10,22 IV 11/16/24 22:00 11/18/24 10:48 10 ML Diagnostic Test (Pha) 1 strip Q6HR 11/17/24 12:00 11/18/24 12:00 1 STRIP Insulin Human Regular FOLLOW SLIDING SCALE Q6HR SC 11/17/24 12:00 11/18/24 12:41 4 UNITS Dextrose 50 ml UD IV 11/17/24 11:00 Fat Emulsion Intravenous 100 ml/Sodium Acetate 20 meq/Potassium Acetate 60 meq/ Magnesium Sulfate 8 meq/ Multivitamins 10 ml/Chromium/ Copper/Manganese/ Zinc 1 ml/Amino Acids/Dextrose/ Purified Water 1,303 ml @ 54 mls/hr Q24H8M IV 11/17/24 22:00 11/18/24 21:59 11/17/24 22:45 54 MLS/HR Fat Emulsion Intravenous 100 ml/Sodium Acetate 40 meq/Sodium Phosphate 20 meq/ Magnesium Sulfate 6 meq/ Multivitamins 10 ml/Chromium/ Copper/Manganese/ Zinc 1 ml/Amino Acids/Dextrose/ Purified Water 1,287.5 ml @ 54 mls/hr [id number] IV 11/18/24 22:00 11/19/24 21:59 Laboratory Results Laboratory Tests 11/16/24 14:53 11/18/24 08:43 Chemistry Test 11/18/24 08:43 Albumin 3.8 g/dL (3.2-4.8) Calcium Level 9.7 mg/dL (8.7-10.4) Magnesium Level 2.0 mg/dL (1.6-2.6) Phosphorus Level 2.5 mg/dL (2.4-5.1) Total Protein 6.2 g/dL (5.7-8.2) LFT Test 11/18/24 08:43 Alanine Aminotransferase (ALT) 18 U/L (7-40) Alkaline Phosphatase 101 U/L (46-116) Aspartate Amino Transferase (AST) 20 U/L (<34) Total Bilirubin 0.8 mg/dL (0.2-1.0) Urinalysis Test 11/14/24 02:00 Urine Color Light-yellow (Yellow) Urine Clarity Turbid (Clear) H Urine pH 6.0 (5.0-9.0) Urine Specific [place] 1.026 (1.001-1.035) Urine Protein 1+ (Negative) H Urine Ketones 4+ (Negative) H Urine Blood Negative /uL (Negative) Urine Nitrite Negative (Negative) Urine Bilirubin Negative (Negative) Urine Urobilinogen Normal mg/dL (Negative) Urine Leukocyte Esterase Negative /uL (Negative) Urine RBC None seen /hpf (0 - 4) Urine Microscopic WBC 2 /HPF (0-5) Urine Squamous Epithelial Cells Mod /hpf (<5) Urine Bacteria None seen /hpf (None Seen) Urine Hyaline Casts Few /lpf (0 - 2) Urine Mucus Few (None Seen) Urine Glucose Normal mg/dL (Normal) Microbiology Microbiology Date/Time Source Procedure Growth Status 11/13/24 23:00 Nose MRSA Screen - Final Complete Labs and/or images reviewed: Labs reviewed by me, Image(s) reviewed by me Assessment/Plan Assessment/Plan Impression: -acute CVA involving the tobias -history of CVA -diabetes mellitus -accelerated hypertension -paroxysmal atrial fibrillation -metabolic acidosis Plan: Events: Awaiting for swallow evaluation by speech therapist before making a decision to proceed with PEG tube placement. -potassium replacement -neurology consultation -social service consultation for transfer to higher level of care -continue TPN -speech therapy for swallow evaluation -regular insulin sliding scale Total time spent with patient discussing and formulating plan of care: 35 minutes. This medical document was created using an electronic medical record system with [employer] dictation system. Although this document has been carefully reviewed, there may still be some phonetic and typographical errors. These areas are purely typographical due to imperfections of the software programs, and do not reflect any compromise in the patient's medical care. Plan discussed with: Patient Date of Service: Nov 18, 2024 Billing Provider: RY ANAYA NP Common Visit Codes: [id number] INP/OBS CARE(HIGH) RY ANAYA NP Nov 18, 2024 13:10
[2024-11-18] MEDS ORDERED: KETOROLAC TROMETH 30 MG/ML 1ML VIAL IV PRN (13:15)
[2024-11-18] MEDS: TPN PER PHARMACY IV NR (22:43)
[2024-11-19] VITALS (8 sets, daily range): BP systolic 107–158; BP diastolic 53–86; PULSE 69–83; RESP 15–18; TEMP 97.6–98.7; O2SAT 93–99
[2024-11-19 08:31] LABS: Alanine Aminotransferase 15 U/L (7-40); Albumin 3.7 g/dL (3.2-4.8); Alkaline Phosphatase 95 U/L (46-116); Anion Gap 13 (5-15); Aspartate Aminotransferase 22 U/L (<34); BUN/Creatinine Ratio 19.5 (10.0-20.0); Blood Urea Nitrogen 22 mg/dL (9-23); Calcium 9.6 mg/dL (8.7-10.4); Glucose 98 mg/dL (74-106); Magnesium 2.1 mg/dL (1.6-2.6); Potassium 4.1 mmol/L (3.5-5.1); Sodium 141 mmol/L (136-145); Total Protein 6.2 g/dL (5.7-8.2)
[2024-11-19 08:32] LABS: Bilirubin, Total 0.6 mg/dL (0.2-1.0)
[2024-11-19 08:34] LABS: Carbon Dioxide 18 mmol/L (20-31); Chloride 110 mmol/L (98-107); Phosphorus 2.3 mg/dL (2.4-5.1)
--- NOTE | 2024-11-19 14:38 | DVHPN2 ---
Subjective Patient continues to report having trouble swallowing. Reviewed: Care Plan, H&P, Labs, Medications Changes from previous H/P or p: No Changes General: Per HPI Objective Vitals Vital Signs Date Time Temp Pulse Resp B/P (MAP) Pulse Ox O2 Delivery O2 Flow Rate FiO2 11/19/24 13:00 97.8 79 18 107/59 (75) 96 97.8 11/19/24 08:00 Room Air* 0 21 Intake/Output Intake and Output 11/19/24 07:00 Intake Total 348 ml Output Total 500 ml Balance -152 ml Intake Oral 348 ml Output Urine Total 500 ml # Voids 4 # Bowel Movements 1 General Appearance: Alert, Oriented X3, Cooperative, No acute distress HEENT: Atraumatic, PERRLA Lungs: Clear to auscultation, Normal air movement Cardiovascular: Normal S1, Normal S2 Musculoskeletal: Normal sensory function, Normal motor function Extremities: No clubbing, No cyanosis Neuro: Normal gait, Normal speech Skin: Dry, Intact Psych/Mental Status: Mental status NL, Mood NL Medications Current Medications Medications Dose Ordered Sig/Tasia Route Start Time Stop Time Status Last Admin Dose Admin Hydralazine HCl 10 mg Q6HP PRN IV 11/13/24 21:45 11/18/24 11:42 10 MG Dextrose/Sodium Chloride 1,000 ml @ 75 mls/hr [id number] IV 11/13/24 21:45 11/19/24 11:22 75 MLS/HR Ondansetron HCl 4 mg Q4HP PRN IV 11/13/24 21:45 Enoxaparin Sodium 30 mg DAILY SC 11/14/24 10:00 11/19/24 11:19 30 MG Nitroglycerin 0.4 mg Q5MINP PRN SL 11/13/24 21:45 Morphine Sulfate 2 mg Q30M PRN IV 11/13/24 21:45 Amino Acids 0 ml @ 0 mls/hr PER PHARMACY IV 11/13/24 22:30 Acetaminophen 650 mg Q6HP PRN PO 11/15/24 01:00 Sodium Chloride 10 ml QSHIFT@10,22 IV 11/16/24 22:00 11/19/24 11:20 10 ML Diagnostic Test (Pha) 1 strip Q6HR 11/17/24 12:00 11/19/24 11:53 1 STRIP Insulin Human Regular FOLLOW SLIDING SCALE Q6HR SC 11/17/24 12:00 11/19/24 12:34 4 UNITS Dextrose 50 ml UD IV 11/17/24 11:00 Fat Emulsion Intravenous 100 ml/Sodium Acetate 40 meq/Sodium Phosphate 20 meq/ Magnesium Sulfate 6 meq/ Multivitamins 10 ml/Chromium/ Copper/Manganese/ Zinc 1 ml/Amino Acids/Dextrose/ Purified Water 1,287.5 ml @ 54 mls/hr [id number] IV 11/18/24 22:00 11/19/24 21:59 11/18/24 22:43 54 MLS/HR Ketorolac Tromethamine 15 mg Q6HPRN PRN IV 11/18/24 13:15 11/23/24 13:14 Fat Emulsion Intravenous 100 ml/Sodium Acetate 20 meq/Sodium Phosphate 20 meq/ Potassium Acetate 40 meq/Magnesium Sulfate 4 meq/ Multivitamins 10 ml/Chromium/ Copper/Manganese/ Zinc 1 ml/Amino Acids/Dextrose/ Purified Water 1,297 ml @ 54 mls/hr Q24H2M IV 11/19/24 22:00 11/20/24 21:59 Laboratory Results Laboratory Tests 11/16/24 14:53 11/19/24 05:53 Chemistry Test 11/19/24 05:53 Albumin 3.7 g/dL (3.2-4.8) Calcium Level 9.6 mg/dL (8.7-10.4) Magnesium Level 2.1 mg/dL (1.6-2.6) Phosphorus Level 2.3 mg/dL (2.4-5.1) L Total Protein 6.2 g/dL (5.7-8.2) LFT Test 11/19/24 05:53 Alanine Aminotransferase (ALT) 15 U/L (7-40) Alkaline Phosphatase 95 U/L (46-116) Aspartate Amino Transferase (AST) 22 U/L (<34) Total Bilirubin 0.6 mg/dL (0.2-1.0) Urinalysis Test 11/14/24 02:00 Urine Color Light-yellow (Yellow) Urine Clarity Turbid (Clear) H Urine pH 6.0 (5.0-9.0) Urine Specific [place] 1.026 (1.001-1.035) Urine Protein 1+ (Negative) H Urine Ketones 4+ (Negative) H Urine Blood Negative /uL (Negative) Urine Nitrite Negative (Negative) Urine Bilirubin Negative (Negative) Urine Urobilinogen Normal mg/dL (Negative) Urine Leukocyte Esterase Negative /uL (Negative) Urine RBC None seen /hpf (0 - 4) Urine Microscopic WBC 2 /HPF (0-5) Urine Squamous Epithelial Cells Mod /hpf (<5) Urine Bacteria None seen /hpf (None Seen) Urine Hyaline Casts Few /lpf (0 - 2) Urine Mucus Few (None Seen) Urine Glucose Normal mg/dL (Normal) Microbiology Microbiology Date/Time Source Procedure Growth Status 11/13/24 23:00 Nose MRSA Screen - Final Complete Labs and/or images reviewed: Labs reviewed by me, Image(s) reviewed by me Assessment/Plan Assessment/Plan Impression: -acute CVA involving the tobias -history of CVA -diabetes mellitus -accelerated hypertension -paroxysmal atrial fibrillation -metabolic acidosis Plan: Events: Failed swallow evaluation. Spoke with the patient and sister, Jeanie about PEG tube placement for which they are in agreement. -GI consult for PEG tube. -neurology consultation -social service consultation for transfer to higher level of care -continue TPN -speech therapy for swallow evaluation -regular insulin sliding scale Total time spent with patient discussing and formulating plan of care: 35 minutes. This medical document was created using an electronic medical record system with [employer] dictation system. Although this document has been carefully reviewed, there may still be some phonetic and typographical errors. These areas are purely typographical due to imperfections of the software programs, and do not reflect any compromise in the patient's medical care. Plan discussed with: Patient, Other (RN, Sister-Jeanie) My Orders Orders - RY ANAYA NP Procedure Category Date Status Time * Gi Dvh Transportation Inspector CONS 11/19/24 Verified 14:35 Date of Service: Nov 19, 2024 Billing Provider: RY ANAYA NP Common Visit Codes: [id number] INP/OBS CARE(HIGH) RY ANAYA NP Nov 19, 2024 14:38
[2024-11-19] MEDS: SODIUM PHOSPHATES 20 MEQ in SODIUM CHL 0.9% 100 ML IV ONE (17:26)
--- NOTE | 2024-11-19 20:51 | DVHINCON2 ---
Date of service: Nov 19, 2024 Referring Physician Dandy Anaya Reason for Consultation Oropharyngeal dysphagia; PEG tube History of Present Illness 79 y o lady admitted with Acute pontine stroke on 11/11/2024 with blurry vision, right facial droop, speech difficulty, dysphagia Stroke in 01/2023 with good recovery Multiple strokes per CT/MRI scan Cognitive dysfunction/dementia Pt failed trial of apple sauce and liquids with coughing Currently NPO; GI consult for PEG tube Echo bubble study positive for intra cardiac shunt Past Medical History Past Medical History CVA, GERD, hypertension, diabetes mellitus, Alzheimer's Past Surgical History Past Surgical History None Family History: Asthma G8 MOTHER FH: dementia G8 MOTHER Allergies: Uncoded Allergies: NKA (Allergy, Unknown, 11/13/24) NKA Home Meds Active Scripts Amlodipine Besylate (Amlodipine Besylate) 10 Mg Tab, 1 TAB PO DAILY for 60 Days, #60 TAB Prov:RY ANAYA COMMUNITY MANAGER 06/23/23 Metoprolol Succinate (Metoprolol Succinate Er) 25 Mg Tab, 1 TAB PO DAILY for 60 Days, #60 TAB Prov:RY ANAYA COMMUNITY MANAGER 06/23/23 Reported Medications Pantoprazole Sodium Sesquihydr (Pantoprazole Sodium) 40 Mg Tab, 1 TAB PO DAILY 06/23/23 Donepezil Hydrochloride (DONEPEZIL HCL) 5 Mg Tab, 1 TAB PO DAILY 06/23/23 Clopidogrel Bisulfate (CLOPIDOGREL) 75 Mg Tab, 1 TAB PO DAILY 06/23/23 Glipizide (Glipizide Er) 2.5 Mg Tab, 1 TAB PO DAILY 06/23/23 Rosuvastatin Calcium (Rosuvastatin Calcium) 40 Mg Tab, 1 TAB PO DAILY 06/23/23 Current Medications Current Medications Medications (Trade) Dose Ordered Sig/Tasia Route PRN Reason Start Time Stop Time Status Last Admin Fat Emulsion Intravenous 100 ml/Sodium Acetate 40 meq/Sodium Phosphate 20 meq/ Magnesium Sulfate 6 meq/ Multivitamins 10 ml/Chromium/ Copper/Manganese/ Zinc 1 ml/Amino Acids/Dextrose/ Purified Water 1,287.5 ml @ 54 mls/hr [id number] IV 11/18/24 22:00 11/19/24 21:59 11/18/24 22:43 Fat Emulsion Intravenous 100 ml/Sodium Acetate 20 meq/Sodium Phosphate 20 meq/ Potassium Acetate 40 meq/Magnesium Sulfate 4 meq/ Multivitamins 10 ml/Chromium/ Copper/Manganese/ Zinc 1 ml/Amino Acids/Dextrose/ Purified Water 1,297 ml @ 54 mls/hr Q24H2M IV 11/19/24 22:00 11/20/24 21:59 Vital Signs Vital Signs Date Time Temp Pulse Resp B/P (MAP) Pulse Ox O2 Delivery O2 Flow Rate FiO2 11/19/24 17:00 97.6 83 16 129/68 (88) 96 97.6 11/19/24 08:00 Room Air* 0 21 Physical Exam General: the patient is well developed and nourished. No acute distress. no aphasia or dysathria. CRANIAL NERVES: Pupils are equal, round and reactive. EOM intactNo nystagmus. MOTOR: Normal tone in the upper and lower extremity. Normal muscle bulk. No fasciculations. No abnormal movements or posturing. Muscle strength of the major groups in the extremities is 4-5/5, possibly weaker on the right side. Pulmonary: Clear to auscultation and percussion bilaterally. Cardiac: Regular rate and rhythm. No murmur Abdomen: Soft, nontender, nondistended, bowel sounds present all 4 quadrants, no guarding, no rigidity, no organomegaly. Extremities: No cyanosis, clubbing, no edema Labs/Diagnostic Data Labs Test 11/19/24 17:25 11/19/24 05:53 11/16/24 14:53 11/15/24 04:21 Range/Units POC Glucose 174 H 70-106 mg/dl Sodium Level 141 136-145 mmol/L Potassium Level 4.1 3.5-5.1 mmol/L Chloride Level 110 H 98-107 mmol/L Carbon Dioxide Level 18 L 20-31 mmol/L Anion Gap 13 5-15 Blood Urea Nitrogen 22 9-23 mg/dL Creatinine 1.13 H 0.550-1.02 mg/dL Glomerular Filtration Rate Calc 49 >90 mL/min BUN/Creatinine Ratio 19.5 10.0-20.0 Serum Glucose 98 74-106 mg/dL Calcium Level 9.6 8.7-10.4 mg/dL Phosphorus Level 2.3 L 2.4-5.1 mg/dL Magnesium Level 2.1 1.6-2.6 mg/dL Total Bilirubin 0.6 0.2-1.0 mg/dL Aspartate Amino Transferase (AST) 22 <34 U/L Alanine Aminotransferase (ALT) 15 7-40 U/L Alkaline Phosphatase 95 46-116 U/L Total Protein 6.2 5.7-8.2 g/dL Albumin 3.7 3.2-4.8 g/dL White Blood Count 7.5 # 4.4-10.8 10^3/uL Red Blood Count 5.10 4.0-5.20 10^6/uL Hemoglobin 16.5 H 12.2-16.2 g/dL Hematocrit 48.2 H 36.0-46.0 % Mean Corpuscular Volume 94.5 80.0-100.0 fL Mean Corpuscular Hemoglobin 32.5 H 28.0-32.0 pg Mean Corpuscular Hemoglobin Concent 34.4 32.0-36.0 g/dL Red Cell Distribution Width 14.3 11.8-14.3 % Platelet Count 223 140-450 10^3/uL Mean Platelet Volume 8.9 6.9-10.8 fL Neutrophils (%) (Auto) 68.8 37.0-80.0 % Lymphocytes (%) (Auto) 18.4 10.0-50.0 % Monocytes (%) (Auto) 11.4 0.0-12.0 % Eosinophils (%) (Auto) 1.0 0.0-7.0 % Basophils (%) (Auto) 0.4 0.0-2.0 % Neutrophils # (Auto) 5.2 1.6-8.6 10 ^3/uL Lymphocytes # (Auto) 1.4 0.4-5.4 10 ^3/uL Monocytes # (Auto) 0.9 0-1.3 10 ^3/uL Eosinophils # (Auto) 0.1 0-0.8 10 ^3/uL Basophils # (Auto) 0 0-0.2 10 ^3/uL Nucleated Red Blood Cells 0.1 % Prothrombin Time 10.5 9.3-11.8 sec Prothrombin Time INR 0.99 0.9-1.15 Activated Partial Thromboplast Time 30.8 24.5-34.5 SEC Estimated GFR () 60 mL/min Estimated GFR (Non- 49 mL/min Test 11/14/24 16:55 11/14/24 16:13 11/14/24 06:48 11/14/24 02:00 Range/Units Triglycerides Level 133 < 150 mg/dL Cholesterol Level 234 H < 200 mg/dL LDL Cholesterol 144 H < 100 mg/dL HDL Cholesterol 66 H 40-59 mg/dL Beta-Hydroxybutyric Acid 1.872 H < 0.4 mmol/L Thyroid Stimulating Hormone (TSH) 3.13 0.55-4.78 uIU/mL Hemoglobin A1c 5.8 H <5.7 % A1C Hepatitis B Surface Antigen Negative Negative Hepatitis C Antibody Negative Negative Urine Color Light-yellow Yellow Urine Clarity Turbid H Clear Urine pH 6.0 5.0-9.0 Urine Specific [place] 1.026 1.001-1.035 Urine Protein 1+ H Negative Urine Ketones 4+ H Negative Urine Blood Negative Negative /uL Urine Nitrite Negative Negative Urine Bilirubin Negative Negative Urine Urobilinogen Normal Negative mg/dL Urine Leukocyte Esterase Negative Negative /uL Urine RBC None seen 0 - 4 /hpf Urine Microscopic WBC 2 0-5 /HPF Urine Squamous Epithelial Cells Mod <5 /hpf Urine Bacteria None seen None Seen /hpf Urine Hyaline Casts Few 0 - 2 /lpf Urine Mucus Few None Seen Urine Glucose Normal Normal mg/dL Test 11/13/24 22:22 Range/Units Troponin I High Sensitivity 6 </=34 ng/L Microbiology Date/Time Source Procedure Growth Status 11/13/24 23:00 Nose MRSA Screen - Final Complete Problems(with codes): (1) Dysphagia (2) TIA (transient ischemic attack) (3) Hypertensive urgency Plan/Recommendation Plan/Recommendation Monitoring Supportive treatment On Aspirin 300mg WA/81 mg daily Lipitor 80 mg daily Physical therapy PEG tube placement later this week if no improvement in swallowing Plan discussed with: Other (None) DESIRE PICKERING MD Nov 19, 2024 20:51
[2024-11-19] MEDS: TPN PER PHARMACY IV NR (21:43)
[2024-11-20] VITALS (8 sets, daily range): BP systolic 123–152; BP diastolic 61–75; PULSE 71–90; RESP 16–18; TEMP 97.5–98.2; O2SAT 96–98
[2024-11-20 09:29] LABS: Alanine Aminotransferase 12 U/L (7-40); Albumin 3.6 g/dL (3.2-4.8); Alkaline Phosphatase 95 U/L (46-116); Anion Gap 9 (5-15); Aspartate Aminotransferase 15 U/L (<34); BUN/Creatinine Ratio 19.4 (10.0-20.0); Calcium 9.4 mg/dL (8.7-10.4); Carbon Dioxide 21 mmol/L (20-31); Potassium 3.7 mmol/L (3.5-5.1); Sodium 141 mmol/L (136-145); Total Protein 5.9 g/dL (5.7-8.2)
[2024-11-20 09:30] LABS: Bilirubin, Total 0.4 mg/dL (0.2-1.0); Phosphorus 3.3 mg/dL (2.4-5.1)
[2024-11-20 10:00] LABS: Blood Urea Nitrogen 24 mg/dL (9-23); Chloride 111 mmol/L (98-107); Glucose 114 mg/dL (74-106)
[2024-11-20 10:41] LABS: Magnesium 2.2 mg/dL (1.6-2.6)
--- NOTE | 2024-11-20 16:02 | DVHPN2 ---
Subjective Patient continues to report having trouble swallowing. Reviewed: Care Plan, H&P, Labs, Medications Changes from previous H/P or p: No Changes General: Per HPI Objective Vitals Vital Signs Date Time Temp Pulse Resp B/P (MAP) Pulse Ox O2 Delivery O2 Flow Rate FiO2 11/20/24 13:00 97.5 78 16 146/73 (97) 97 97.5 11/20/24 08:00 Room Air* 0 21 Intake/Output Intake and Output 11/20/24 07:00 Intake Total 2200 ml Balance 2200 ml Intake Oral 0 ml IV Total 2200 ml # Voids 3 # Bowel Movements 2 General Appearance: Alert, Oriented X3, Cooperative, No acute distress HEENT: Atraumatic, PERRLA Lungs: Clear to auscultation, Normal air movement Cardiovascular: Normal S1, Normal S2 Musculoskeletal: Normal sensory function, Normal motor function Extremities: No clubbing, No cyanosis Neuro: Normal gait, Normal speech Skin: Dry, Intact Psych/Mental Status: Mental status NL, Mood NL Medications Current Medications Medications Dose Ordered Sig/Tasia Route Start Time Stop Time Status Last Admin Dose Admin Hydralazine HCl 10 mg Q6HP PRN IV 11/13/24 21:45 11/18/24 11:42 10 MG Dextrose/Sodium Chloride 1,000 ml @ 75 mls/hr [id number] IV 11/13/24 21:45 11/20/24 13:38 75 MLS/HR Ondansetron HCl 4 mg Q4HP PRN IV 11/13/24 21:45 Enoxaparin Sodium 30 mg DAILY SC 11/14/24 10:00 11/20/24 11:49 30 MG Nitroglycerin 0.4 mg Q5MINP PRN SL 11/13/24 21:45 Morphine Sulfate 2 mg Q30M PRN IV 11/13/24 21:45 Amino Acids 0 ml @ 0 mls/hr PER PHARMACY IV 11/13/24 22:30 Acetaminophen 650 mg Q6HP PRN PO 11/15/24 01:00 Sodium Chloride 10 ml QSHIFT@10,22 IV 11/16/24 22:00 11/20/24 10:00 10 ML Diagnostic Test (Pha) 1 strip Q6HR 11/17/24 12:00 11/20/24 12:00 1 STRIP Insulin Human Regular FOLLOW SLIDING SCALE Q6HR SC 11/17/24 12:00 11/20/24 13:38 2 UNITS Dextrose 50 ml UD IV 11/17/24 11:00 Ketorolac Tromethamine 15 mg Q6HPRN PRN IV 11/18/24 13:15 11/23/24 13:14 Fat Emulsion Intravenous 100 ml/Sodium Acetate 20 meq/Sodium Phosphate 20 meq/ Potassium Acetate 40 meq/Magnesium Sulfate 4 meq/ Multivitamins 10 ml/Chromium/ Copper/Manganese/ Zinc 1 ml/Amino Acids/Dextrose/ Purified Water 1,297 ml @ 54 mls/hr Q24H2M IV 11/19/24 22:00 11/20/24 21:59 11/19/24 21:43 54 MLS/HR Fat Emulsion Intravenous 100 ml/Sodium Acetate 20 meq/Sodium Phosphate 20 meq/ Potassium Acetate 50 meq/Potassium Phosphate 11 meq/ Magnesium Sulfate 2 meq/ Multivitamins 10 ml/Chromium/ Copper/Manganese/ Zinc 1 ml/Amino Acids/Dextrose/ Purified Water 1,304 ml @ 54 mls/hr Q24H9M IV 11/20/24 22:00 11/21/24 21:59 Laboratory Results Laboratory Tests 11/16/24 14:53 11/20/24 08:50 Chemistry Test 11/20/24 08:50 Albumin 3.6 g/dL (3.2-4.8) Calcium Level 9.4 mg/dL (8.7-10.4) Magnesium Level 2.2 mg/dL (1.6-2.6) Phosphorus Level 3.3 mg/dL (2.4-5.1) Total Protein 5.9 g/dL (5.7-8.2) LFT Test 11/20/24 08:50 Alanine Aminotransferase (ALT) 12 U/L (7-40) Alkaline Phosphatase 95 U/L (46-116) Aspartate Amino Transferase (AST) 15 U/L (<34) Total Bilirubin 0.4 mg/dL (0.2-1.0) Urinalysis Test 11/14/24 02:00 Urine Color Light-yellow (Yellow) Urine Clarity Turbid (Clear) H Urine pH 6.0 (5.0-9.0) Urine Specific [place] 1.026 (1.001-1.035) Urine Protein 1+ (Negative) H Urine Ketones 4+ (Negative) H Urine Blood Negative /uL (Negative) Urine Nitrite Negative (Negative) Urine Bilirubin Negative (Negative) Urine Urobilinogen Normal mg/dL (Negative) Urine Leukocyte Esterase Negative /uL (Negative) Urine RBC None seen /hpf (0 - 4) Urine Microscopic WBC 2 /HPF (0-5) Urine Squamous Epithelial Cells Mod /hpf (<5) Urine Bacteria None seen /hpf (None Seen) Urine Hyaline Casts Few /lpf (0 - 2) Urine Mucus Few (None Seen) Urine Glucose Normal mg/dL (Normal) Microbiology Microbiology Date/Time Source Procedure Growth Status 11/13/24 23:00 Nose MRSA Screen - Final Complete Labs and/or images reviewed: Labs reviewed by me, Image(s) reviewed by me Assessment/Plan Assessment/Plan Impression: -acute CVA involving the tobias -history of CVA -diabetes mellitus -accelerated hypertension -paroxysmal atrial fibrillation -metabolic acidosis Plan: Events: No events overnight. Decrease IV fluids. Awaiting for GI to perform PEG tube placement. -GI consult for PEG tube. -neurology consultation -social service consultation for transfer to higher level of care -continue TPN -speech therapy for swallow evaluation: Daily swallow evaluation by nurse -regular insulin sliding scale Total time spent with patient discussing and formulating plan of care: 35 minutes. This medical document was created using an electronic medical record system with [employer] dictation system. Although this document has been carefully reviewed, there may still be some phonetic and typographical errors. These areas are purely typographical due to imperfections of the software programs, and do not reflect any compromise in the patient's medical care. Plan discussed with: Patient, Other (RN) Date of Service: Nov 20, 2024 Billing Provider: RY ANAYA NP Common Visit Codes: 29973-CVC/OBS DISCH DAY >30min RY ANAYA NP Nov 20, 2024 16:02
[2024-11-20] MEDS: D5W/SOD CHL 0.45% 1,000 ML IV SCH (18:43)
--- NOTE | 2024-11-20 20:54 | DVHPN2 ---
Progress Note - Dictate Date Seen: Nov 20, 2024 Medical Necessity Reason Pt with a Central, PICC or Fol: No Subjective No new complaints Patient seen at bedside resting comfortably Patient's nurse stated she was able to swallow but complained of some throat pain vital signs Vital Sign Date Time Temp Pulse Resp B/P (MAP) Pulse Ox O2 Delivery O2 Flow Rate FiO2 11/20/24 17:00 97.5 71 16 147/69 (95) 98 97.5 11/20/24 08:00 Room Air* 0 21 Total Intake and Output 11/19/24 11/19/24 11/20/24 15:00 23:00 07:00 Intake Total 1550 ml 0 ml 650 ml Balance 1550 ml 0 ml 650 ml medications Current Medications Medications Dose Ordered Sig/Tasia Route Start Time Stop Time Status Last Admin Dose Admin Hydralazine HCl 10 mg Q6HP PRN IV 11/13/24 21:45 11/18/24 11:42 10 MG Ondansetron HCl 4 mg Q4HP PRN IV 11/13/24 21:45 Enoxaparin Sodium 30 mg DAILY SC 11/14/24 10:00 11/20/24 11:49 30 MG Nitroglycerin 0.4 mg Q5MINP PRN SL 11/13/24 21:45 Morphine Sulfate 2 mg Q30M PRN IV 11/13/24 21:45 Amino Acids 0 ml @ 0 mls/hr PER PHARMACY IV 11/13/24 22:30 Acetaminophen 650 mg Q6HP PRN PO 11/15/24 01:00 Sodium Chloride 10 ml QSHIFT@10,22 IV 11/16/24 22:00 11/20/24 10:00 10 ML Diagnostic Test (Pha) 1 strip Q6HR 11/17/24 12:00 11/20/24 18:00 1 STRIP Insulin Human Regular FOLLOW SLIDING SCALE Q6HR SC 11/17/24 12:00 11/20/24 13:38 2 UNITS Dextrose 50 ml UD IV 11/17/24 11:00 Ketorolac Tromethamine 15 mg Q6HPRN PRN IV 11/18/24 13:15 11/23/24 13:14 Fat Emulsion Intravenous 100 ml/Sodium Acetate 20 meq/Sodium Phosphate 20 meq/ Potassium Acetate 40 meq/Magnesium Sulfate 4 meq/ Multivitamins 10 ml/Chromium/ Copper/Manganese/ Zinc 1 ml/Amino Acids/Dextrose/ Purified Water 1,297 ml @ 54 mls/hr Q24H2M IV 11/19/24 22:00 11/20/24 21:59 11/19/24 21:43 54 MLS/HR Fat Emulsion Intravenous 100 ml/Sodium Acetate 20 meq/Sodium Phosphate 20 meq/ Potassium Acetate 50 meq/Potassium Phosphate 11 meq/ Magnesium Sulfate 2 meq/ Multivitamins 10 ml/Chromium/ Copper/Manganese/ Zinc 1 ml/Amino Acids/Dextrose/ Purified Water 1,304 ml @ 54 mls/hr Q24H9M IV 11/20/24 22:00 11/21/24 21:59 Dextrose/Sodium Chloride 1,000 ml @ 50 mls/hr Q20H IV 11/20/24 16:00 11/20/24 18:43 50 MLS/HR objective General: the patient is well developed and nourished. No acute distress. no aphasia or dysathria. CRANIAL NERVES: Pupils are equal, round and reactive. EOM intactNo nystagmus. MOTOR: Normal tone in the upper and lower extremity. Normal muscle bulk. No fasciculations. No abnormal movements or posturing. Muscle strength of the major groups in the extremities is 4-5/5, possibly weaker on the right side. Pulmonary: Clear to auscultation and percussion bilaterally. Cardiac: Regular rate and rhythm. No murmur Abdomen: Soft, nontender, nondistended, bowel sounds present all 4 quadrants, no guarding, no rigidity, no organomegaly. Extremities: No cyanosis, clubbing, no edema laboratory and microbiology Laboratory Tests 11/20/24 08:50 11/16/24 14:53 Test 11/20/24 08:50 Range/Units Serum Glucose 114 H 74-106 mg/dL Problems(with codes): (1) Hypertensive urgency (2) Dysphagia (3) TIA (transient ischemic attack) Prognosis Plan We will continue to do swallow evaluation over the next 48-72 hours With the patient does not show improvement in her swallowing then I will be standing by for a possible PEG tube on 11/23/24 I will follow this patient with you closely Dietary Evaluation Review Comments: Advance TPN to meet >75% estimated needs Monitor TPN tolerance, weight trend, lab values Expected Outcomes/Goals: To meet > 75% estimated needs fu 2-3 days Plan discussed with: Patient, Other (Nurse) DESIRE PICKERING MD Nov 20, 2024 20:54
[2024-11-20] MEDS: TPN PER PHARMACY IV NR (23:04)
--- NOTE | 2024-11-20 23:45 | DVHPN2 ---
Progress Note - Dictate Date Seen: Nov 20, 2024 Medical Necessity Reason Pt with a Central, PICC or Fol: No Subjective Ms. Rizo hypertension, diabetes, dyslipidemia, obesity, he was transferred from the [facility] to the [facility] on 11/13/2024 with a chief company of altered mental status. I saw her on 06/23/2023 for dizziness/CVA I have seen and examined the patient, I have discussed with her nurse, she is doing fine, alert and fully oriented, no new complaints She denies history of heart disease or atrial fibrillation Telemetry: No AFib captured in the hospital [facility] CTA head, neck, 11/11/2024: Negative CTA of the head and neck without obvious aneurysm, dissection, moderate/large arterial occlusion or critical stenosis MRI brain, 11/13/2024: 2 small foci of acute infarcts in the ventral and dorsal left paramedial tobias CBC, 11/13/2024: Unremarkable HGB A1c, 11/14/2024: 5.8 BUN/CR, 11/14/2024: 26/1.28 Liver function tests, 11/14/2024: Unremarkable TG/CHO L/LDL/HDL, 06/2023: 203/2046/152/64, 11/14/2024: 133/234/144/66 Vitamin B12, 06/2019 4:247 Folic acid, 06/2023: 18.31 TSH, :3.13 BECKY, 11/15/2024: Technically good study. Patient in a sinus rhythm. Left atrial enlargement. No intra-atrial or intraventricular septal defects identified. Valves are normal. Left ventricular function is preserved at 55% with normal right ventricular function. Dopplers unremarkable. Mild tricuspid regurgitation. There were no PFO and or atrial septal defect abnormalities noted on Doppler. no ventricular septal defect or abnormal shunting noted on Doppler. Bubble study confirms immediate crossover of bubbles into the left atrium and ventricle upon injection of agitated saline. Bubble study confirms intra- atrial defect and/or patent foramina ovale not delineated by Doppler or visual drop out. Clinical correlation highly recommended. Consider further evaluation with 3D intracardiac ECHO. No intracardiac masses and/or vegetations discernible. No pericardial effusion noted. Transgastric views are unremarkable. Carotid Doppler, 11/14/2024: 1. No evidence of hemodynamically significant stenosis within the bilateral carotid arterial systems. 2. Antegrade flow within bilateral vertebral arteries. CT head, 06/22/2023: Hypodense area over the left parietotemporal region and right occipital region which may represent areas of infarct of unknown chronicity. MRI is recommended for further evaluation. Mild to moderate centrum semiovale and kebede radiata hypodensities which may represent chronic small vessel ischemic changes with underlying infarct not excluded. Right basilar ganglia suggested chronic lacunar infarct. Nonspecific partially empty sella CT head, neck, 06/22/2023: 1. Chronic appearing infarcts, better seen on CT evaluation earlier same date. If there is persistent clinical concern for acute infarction, MRI brain without contrast suggested. 2. No evidence of hemodynamically significant intracranial stenosis, proximal occlusion or aneurysm in the [place]. 3. No evidence of hemodynamically significant cervical stenosis or dissection in the neck MRI head, 06/23/2023: No acute infarct, mass effect or acute intracranial hemorrhage.(There is an old right cerebellar infarct. Chronic right basal ganglia lacunar infarct. Old left temporoparietal infarct.) vital signs Vital Sign Date Time Temp Pulse Resp B/P (MAP) Pulse Ox O2 Delivery O2 Flow Rate FiO2 11/20/24 21:00 97.7 79 18 123/61 (81) 96 97.7 11/20/24 08:00 Room Air* 0 21 Total Intake and Output 11/19/24 11/19/24 11/20/24 15:00 23:00 07:00 Intake Total 1550 ml 0 ml 650 ml Balance 1550 ml 0 ml 650 ml medications Current Medications Medications Dose Ordered Sig/Tasia Route Start Time Stop Time Status Last Admin Dose Admin Hydralazine HCl 10 mg Q6HP PRN IV 11/13/24 21:45 11/18/24 11:42 10 MG Ondansetron HCl 4 mg Q4HP PRN IV 11/13/24 21:45 Enoxaparin Sodium 30 mg DAILY SC 11/14/24 10:00 11/20/24 11:49 30 MG Nitroglycerin 0.4 mg Q5MINP PRN SL 11/13/24 21:45 Morphine Sulfate 2 mg Q30M PRN IV 11/13/24 21:45 Amino Acids 0 ml @ 0 mls/hr PER PHARMACY IV 11/13/24 22:30 Acetaminophen 650 mg Q6HP PRN PO 11/15/24 01:00 Sodium Chloride 10 ml QSHIFT@10,22 IV 11/16/24 22:00 11/20/24 10:00 10 ML Diagnostic Test (Pha) 1 strip Q6HR 11/17/24 12:00 11/20/24 18:00 1 STRIP Insulin Human Regular FOLLOW SLIDING SCALE Q6HR SC 11/17/24 12:00 11/20/24 13:38 2 UNITS Dextrose 50 ml UD IV 11/17/24 11:00 Ketorolac Tromethamine 15 mg Q6HPRN PRN IV 11/18/24 13:15 11/23/24 13:14 Fat Emulsion Intravenous 100 ml/Sodium Acetate 20 meq/Sodium Phosphate 20 meq/ Potassium Acetate 50 meq/Potassium Phosphate 11 meq/ Magnesium Sulfate 2 meq/ Multivitamins 10 ml/Chromium/ Copper/Manganese/ Zinc 1 ml/Amino Acids/Dextrose/ Purified Water 1,304 ml @ 54 mls/hr Q24H9M IV 11/20/24 22:00 11/21/24 21:59 11/20/24 23:04 54 MLS/HR Dextrose/Sodium Chloride 1,000 ml @ 50 mls/hr Q20H IV 11/20/24 16:00 11/20/24 18:43 50 MLS/HR objective General: the patient is well developed and nourished. No acute distress. MENTAL STATUS: Subjective SPEECH, LANGUAGE, HIGHER CORTICAL FUNCTION: no aphasia or dysathria. CRANIAL NERVES: Pupils are equal, round and reactive. EOMs full and conjugate. No nystagmus. Facial sensation intact in all three divisions bilaterally. Mandibular strength intact. Facial muscles symmetrical and strength intact. SENSATION: Sensation to touch and pinprick is normal. MOTOR: Normal tone in the upper and lower extremity. Normal muscle bulk. No fasciculations. No abnormal movements or posturing. Muscle strength of the major groups in the extremities is 4-5/5, possibly weaker on the right side. REFLEXES: Deep tendon reflexes are symmetrical. No pathological reflexes. CEREBELLAR/COORDINATION: Finger to nose is normal bilaterally. GAIT/STATION: deferred laboratory and microbiology Laboratory Tests 11/20/24 08:50 11/16/24 14:53 Test 11/20/24 08:50 Range/Units Serum Glucose 114 H 74-106 mg/dL Problem List Acute pontine stroke on 11/11/2024 with blurry vision, right facial droop, speech difficulty, dysphagia Stroke in 01/2023 with good recovery Multiple strokes per CT/MRI scan Cognitive dysfunction/dementia Atrial septal defect Assessment/Plan Monitoring Supportive treatment Extremity venous study to rule out DVT Telemetry Aspirin 300mg NE/81 mg daily Lipitor 80 mg daily DVT prophylaxis/Lovenox Speech pathology evaluation Up to chair Physical therapy Further address cognitive deficits/dementia as outpatient Transfer to higher level care Re: Intra-atrial defect More recommendation per clinical course This medical document was created using an electronic medical record system with [employer] dictation system. Although this document has been carefully reviewed, there may still be some phonetic and typographical errors. These areas are purely typographical due to imperfections of the software programs, and do not reflect any compromise in the patient's medical care. Prognosis poor Dietary Evaluation Review Comments: Advance TPN to meet >75% estimated needs Monitor TPN tolerance, weight trend, lab values Expected Outcomes/Goals: To meet > 75% estimated needs fu 2-3 days Plan discussed with: Other IVAN VAUGHAN MD Nov 20, 2024 23:45
[2024-11-21] VITALS (8 sets, daily range): BP systolic 136–169; BP diastolic 64–82; PULSE 67–107; RESP 16–20; TEMP 96.5–98.2; O2SAT 92–98
--- NOTE | 2024-11-21 01:10 | DVH ---
Bilateral lower extremity venous duplex Clinical History: dvt Comparison: None Technique: Duplex Doppler evaluation of the deep venous systems of both lower extremities from the common femora l veins to the popliteal veins including color Doppler and spectral/pulsed waveform analysis was perf ormed. Findings: RIGHT SIDE: The common femoral vein demonstrates appropriate compressibility and waveform variability. There is compressibility/patency of the great saphenous vein at the proximal thigh. The femoral vein demonstrates appropriate compressibility and waveform variability. The deep femoral vein demonstrates appropriate compressibility and waveform variability. The popliteal vein demonstrates appropriate compressibility and waveform variability. There is normal compressibility at the tibioperoneal trunk. LEFT SIDE: The common femoral vein demonstrates appropriate compressibility and waveform variability. There is compressibility/patency of the great saphenous vein at the proximal thigh. The femoral vein demonstrates appropriate compressibility and waveform variability. The deep femoral vein demonstrates appropriate compressibility and waveform variability. The popliteal vein demonstrates appropriate compressibility and waveform variability. There is normal compressibility at the tibioperoneal trunk. Impression: 1. No right or left femoropopliteal venous thrombosis.
[2024-11-21 08:34] LABS: Albumin 3.4 g/dL (3.2-4.8); Alkaline Phosphatase 93 U/L (46-116); Anion Gap 8 (5-15); Aspartate Aminotransferase 12 U/L (<34); BUN/Creatinine Ratio 22.1 (10.0-20.0); Calcium 9.4 mg/dL (8.7-10.4); Carbon Dioxide 25 mmol/L (20-31); Potassium 3.8 mmol/L (3.5-5.1); Sodium 143 mmol/L (136-145); Triglycerides 112 mg/dL (< 150)
[2024-11-21 08:35] LABS: Bilirubin, Total 0.4 mg/dL (0.2-1.0); Phosphorus 3.6 mg/dL (2.4-5.1)
[2024-11-21 08:36] LABS: Alanine Aminotransferase 9 U/L (7-40); Blood Urea Nitrogen 27 mg/dL (9-23); Chloride 110 mmol/L (98-107); Glucose 130 mg/dL (74-106); Total Protein 5.7 g/dL (5.7-8.2)
[2024-11-21 09:05] LABS: Magnesium 1.8 mg/dL (1.6-2.6)
[2024-11-21] MEDS: ASPirin 300 MG RECTAL SUPP PR SCH (10:38)
--- NOTE | 2024-11-21 11:00 | DVHPN2 ---
Subjective Patient continues to report having trouble swallowing. Reviewed: Care Plan, H&P, Labs, Medications Changes from previous H/P or p: No Changes General: Per HPI Objective Vitals Vital Signs Date Time Temp Pulse Resp B/P (MAP) Pulse Ox O2 Delivery O2 Flow Rate FiO2 11/21/24 08:52 96.5 71 18 145/71 (95) 98 96.5 11/20/24 20:00 Room Air* 0 21 Intake/Output Intake and Output 11/21/24 07:00 Intake Total 1250 ml Balance 1250 ml Intake Oral 0 ml IV Total 1250 ml Tube Feeding 0 ml # Voids 8 # Bowel Movements 2 General Appearance: Alert, Oriented X3, Cooperative, No acute distress HEENT: Atraumatic, PERRLA Lungs: Clear to auscultation, Normal air movement Cardiovascular: Normal S1, Normal S2 Musculoskeletal: Normal sensory function, Normal motor function Extremities: No clubbing, No cyanosis Neuro: Normal gait, Normal speech Skin: Dry, Intact Psych/Mental Status: Mental status NL, Mood NL Medications Current Medications Medications Dose Ordered Sig/Tasia Route Start Time Stop Time Status Last Admin Dose Admin Hydralazine HCl 10 mg Q6HP PRN IV 11/13/24 21:45 11/18/24 11:42 10 MG Ondansetron HCl 4 mg Q4HP PRN IV 11/13/24 21:45 Enoxaparin Sodium 30 mg DAILY SC 11/14/24 10:00 11/21/24 10:37 30 MG Nitroglycerin 0.4 mg Q5MINP PRN SL 11/13/24 21:45 Morphine Sulfate 2 mg Q30M PRN IV 11/13/24 21:45 Amino Acids 0 ml @ 0 mls/hr PER PHARMACY IV 11/13/24 22:30 Acetaminophen 650 mg Q6HP PRN PO 11/15/24 01:00 Sodium Chloride 10 ml QSHIFT@10,22 IV 11/16/24 22:00 11/21/24 10:00 10 ML Diagnostic Test (Pha) 1 strip Q6HR 11/17/24 12:00 11/21/24 05:33 1 STRIP Insulin Human Regular FOLLOW SLIDING SCALE Q6HR SC 11/17/24 12:00 11/21/24 05:33 4 UNITS Dextrose 50 ml UD IV 11/17/24 11:00 Ketorolac Tromethamine 15 mg Q6HPRN PRN IV 11/18/24 13:15 11/23/24 13:14 Fat Emulsion Intravenous 100 ml/Sodium Acetate 20 meq/Sodium Phosphate 20 meq/ Potassium Acetate 50 meq/Potassium Phosphate 11 meq/ Magnesium Sulfate 2 meq/ Multivitamins 10 ml/Chromium/ Copper/Manganese/ Zinc 1 ml/Amino Acids/Dextrose/ Purified Water 1,304 ml @ 54 mls/hr Q24H9M IV 11/20/24 22:00 11/21/24 21:59 11/20/24 23:04 54 MLS/HR Dextrose/Sodium Chloride 1,000 ml @ 50 mls/hr Q20H IV 11/20/24 16:00 11/20/24 18:43 50 MLS/HR Aspirin 300 mg DAILY [place] 11/21/24 10:00 11/21/24 10:38 300 MG Fat Emulsion Intravenous 150 ml/Potassium Acetate 40 meq/ Magnesium Sulfate 4 meq/ Multivitamins 10 ml/Chromium/ Copper/Manganese/ Zinc 1 ml/Amino Acids/Dextrose/ Purified Water 1,332 ml @ 55 mls/hr [id number] IV 11/21/24 22:00 11/22/24 21:59 Laboratory Results Laboratory Tests 11/16/24 14:53 11/21/24 07:50 Chemistry Test 11/21/24 07:50 Albumin 3.4 g/dL (3.2-4.8) Calcium Level 9.4 mg/dL (8.7-10.4) Magnesium Level 1.8 mg/dL (1.6-2.6) Phosphorus Level 3.6 mg/dL (2.4-5.1) Total Protein 5.7 g/dL (5.7-8.2) Lipid panel Test 11/21/24 07:50 Triglycerides Level 112 mg/dL (< 150) LFT Test 11/21/24 07:50 Alanine Aminotransferase (ALT) 9 U/L (7-40) Alkaline Phosphatase 93 U/L (46-116) Aspartate Amino Transferase (AST) 12 U/L (<34) Total Bilirubin 0.4 mg/dL (0.2-1.0) Urinalysis Test 11/14/24 02:00 Urine Color Light-yellow (Yellow) Urine Clarity Turbid (Clear) H Urine pH 6.0 (5.0-9.0) Urine Specific [place] 1.026 (1.001-1.035) Urine Protein 1+ (Negative) H Urine Ketones 4+ (Negative) H Urine Blood Negative /uL (Negative) Urine Nitrite Negative (Negative) Urine Bilirubin Negative (Negative) Urine Urobilinogen Normal mg/dL (Negative) Urine Leukocyte Esterase Negative /uL (Negative) Urine RBC None seen /hpf (0 - 4) Urine Microscopic WBC 2 /HPF (0-5) Urine Squamous Epithelial Cells Mod /hpf (<5) Urine Bacteria None seen /hpf (None Seen) Urine Hyaline Casts Few /lpf (0 - 2) Urine Mucus Few (None Seen) Urine Glucose Normal mg/dL (Normal) Microbiology Microbiology Date/Time Source Procedure Growth Status 11/13/24 23:00 Nose MRSA Screen - Final Complete Labs and/or images reviewed: Labs reviewed by me, Image(s) reviewed by me Assessment/Plan Assessment/Plan Impression: -acute CVA involving the tobias -history of CVA -diabetes mellitus -accelerated hypertension -paroxysmal atrial fibrillation -metabolic acidosis Plan: Events: No events overnight. Repeat swallow evaluation. Possible PEG tube thereafter -GI consult for PEG tube. -neurology consultation -social service consultation for transfer to higher level of care -continue TPN -speech therapy for swallow evaluation: Daily swallow evaluation by nurse -regular insulin sliding scale Total time spent with patient discussing and formulating plan of care: 35 minutes. This medical document was created using an electronic medical record system with [employer] dictation system. Although this document has been carefully reviewed, there may still be some phonetic and typographical errors. These areas are purely typographical due to imperfections of the software programs, and do not reflect any compromise in the patient's medical care. Plan discussed with: Patient, Other (RN) My Orders Orders - RY AANYA NP Procedure Category Date Status Time D5w/Sod Chl 0.45% PHA 11/20/24 In Process (D5w 1/2ns) 16:00 Communication Order ORDERS 11/20/24 Transmitted 15:[address] 11/21/24 Transmitted 10:48 Speech Pathologist NABIL 11/21/24 In Process Eval: Tricia 10:48 Communication Order ORDERS 11/21/24 Transmitted 10:49 Date of Service: Nov 21, 2024 Billing Provider: SALBINO,RAZA LOGISTICS SUPERVISOR Common Visit Codes: [id number] INP/OBS CARE(HIGH) RY ANAYA LOGISTICS SUPERVISOR Nov 21, 2024 11:00
--- NOTE | 2024-11-21 14:51 | DVHPN2 ---
Progress Note - Dictate Date Seen: Nov 21, 2024 Medical Necessity Reason Pt with a Central, PICC or Fol: No Subjective No new complaints Failed swallow evaluation;unable to swallow vital signs Vital Sign Date Time Temp Pulse Resp B/P (MAP) Pulse Ox O2 Delivery O2 Flow Rate FiO2 11/21/24 12:58 96.6 77 19 139/82 (101) 98 96.6 11/21/24 08:00 Room Air* 0 21 Total Intake and Output 11/20/24 11/20/24 11/21/24 15:00 23:00 07:00 Intake Total 0 ml 1250 ml Balance 0 ml 1250 ml medications Current Medications Medications Dose Ordered Sig/Tasia Route Start Time Stop Time Status Last Admin Dose Admin Hydralazine HCl 10 mg Q6HP PRN IV 11/13/24 21:45 11/18/24 11:42 10 MG Ondansetron HCl 4 mg Q4HP PRN IV 11/13/24 21:45 Enoxaparin Sodium 30 mg DAILY SC 11/14/24 10:00 11/21/24 10:37 30 MG Nitroglycerin 0.4 mg Q5MINP PRN SL 11/13/24 21:45 Morphine Sulfate 2 mg Q30M PRN IV 11/13/24 21:45 Amino Acids 0 ml @ 0 mls/hr PER PHARMACY IV 11/13/24 22:30 Acetaminophen 650 mg Q6HP PRN PO 11/15/24 01:00 Sodium Chloride 10 ml QSHIFT@10,22 IV 11/16/24 22:00 11/21/24 10:00 10 ML Diagnostic Test (Pha) 1 strip Q6HR 11/17/24 12:00 11/21/24 12:08 1 STRIP Insulin Human Regular FOLLOW SLIDING SCALE Q6HR SC 11/17/24 12:00 11/21/24 12:08 2 UNITS Dextrose 50 ml UD IV 11/17/24 11:00 Ketorolac Tromethamine 15 mg Q6HPRN PRN IV 11/18/24 13:15 11/23/24 13:14 Fat Emulsion Intravenous 100 ml/Sodium Acetate 20 meq/Sodium Phosphate 20 meq/ Potassium Acetate 50 meq/Potassium Phosphate 11 meq/ Magnesium Sulfate 2 meq/ Multivitamins 10 ml/Chromium/ Copper/Manganese/ Zinc 1 ml/Amino Acids/Dextrose/ Purified Water 1,304 ml @ 54 mls/hr Q24H9M IV 11/20/24 22:00 11/21/24 21:59 11/20/24 23:04 54 MLS/HR Dextrose/Sodium Chloride 1,000 ml @ 50 mls/hr Q20H IV 11/20/24 16:00 11/21/24 12:30 50 MLS/HR Aspirin 300 mg DAILY [place] 11/21/24 10:00 11/21/24 10:38 300 MG Fat Emulsion Intravenous 150 ml/Potassium Acetate 40 meq/ Magnesium Sulfate 4 meq/ Multivitamins 10 ml/Chromium/ Copper/Manganese/ Zinc 1 ml/Amino Acids/Dextrose/ Purified Water 1,332 ml @ 55 mls/hr Q24H24O IV 11/21/24 22:00 11/22/24 21:59 objective General: the patient is well developed and nourished. No acute distress. no aphasia or dysathria. CRANIAL NERVES: Pupils are equal, round and reactive. EOM intactNo nystagmus. MOTOR: Normal tone in the upper and lower extremity. Normal muscle bulk. No fasciculations. No abnormal movements or posturing. Muscle strength of the major groups in the extremities is 4-5/5, possibly weaker on the right side. Pulmonary: Clear to auscultation and percussion bilaterally. Cardiac: Regular rate and rhythm. No murmur Abdomen: Soft, nontender, nondistended, bowel sounds present all 4 quadrants, no guarding, no rigidity, no organomegaly. Extremities: No cyanosis, clubbing, no edema laboratory and microbiology Laboratory Tests 11/21/24 07:50 11/16/24 14:53 Test 11/21/24 07:50 Range/Units Serum Glucose 130 H 74-106 mg/dL Problems(with codes): (1) Hypertensive urgency (2) Dysphagia (3) TIA (transient ischemic attack) Prognosis PLAN Keep NPO Continue IV TPN I will plan for an EGD with PEG tube placement on 11/2024 under MAC sedation Dietary Evaluation Review Comments: Advance TPN to meet >75% estimated needs Monitor TPN tolerance, weight trend, lab values Expected Outcomes/Goals: To meet > 75% estimated needs fu 2-3 days Plan discussed with: Other (Dandy and Nurse) DESIRE PICKERING MD Nov 21, 2024 14:51
[2024-11-21] MEDS: TPN PER PHARMACY IV NR (21:38)
--- NOTE | 2024-11-21 23:50 | DVHPN2 ---
Progress Note - Dictate Date Seen: Nov 21, 2024 Medical Necessity Reason Pt with a Central, PICC or Fol: No Subjective Ms. Rizo hypertension, diabetes, dyslipidemia, obesity, he was transferred from the [facility] to the [facility] on 11/13/2024 with a chief company of altered mental status. I saw her on 06/23/2023 for dizziness/CVA I have seen and examined the patient, I have discussed with her nurse, she is doing fine, alert and fully oriented, no new complaints I have discussed with Dandy, and I was told the patient had AFib when he was in [facility] CTA head, neck, 11/11/2024: Negative CTA of the head and neck without obvious aneurysm, dissection, moderate/large arterial occlusion or critical stenosis MRI brain, 11/13/2024: 2 small foci of acute infarcts in the ventral and dorsal left paramedial tobias CBC, 11/13/2024: Unremarkable HGB A1c, 11/14/2024: 5.8 BUN/CR, 11/14/2024: 26/1.28 Liver function tests, 11/14/2024: Unremarkable TG/CHO L/LDL/HDL, 06/2023: 203/2046/152/64, 11/14/2024: 133/234/144/66 Vitamin B12, 06/2019 4:247 Folic acid, 06/2023: 18.31 TSH, :3.13 BECKY, 11/15/2024: Technically good study. Patient in a sinus rhythm. Left atrial enlargement. No intra-atrial or intraventricular septal defects identified. Valves are normal. Left ventricular function is preserved at 55% with normal right ventricular function. Dopplers unremarkable. Mild tricuspid regurgitation. There were no PFO and or atrial septal defect abnormalities noted on Doppler. no ventricular septal defect or abnormal shunting noted on Doppler. Bubble study confirms immediate crossover of bubbles into the left atrium and ventricle upon injection of agitated saline. Bubble study confirms intra- atrial defect and/or patent foramina ovale not delineated by Doppler or visual drop out. Clinical correlation highly recommended. Consider further evaluation with 3D intracardiac ECHO. No intracardiac masses and/or vegetations discernible. No pericardial effusion noted. Transgastric views are unremarkable. Carotid Doppler, 11/14/2024: 1. No evidence of hemodynamically significant stenosis within the bilateral carotid arterial systems. 2. Antegrade flow within bilateral vertebral arteries. CT head, 06/22/2023: Hypodense area over the left parietotemporal region and right occipital region which may represent areas of infarct of unknown chronicity. MRI is recommended for further evaluation. Mild to moderate centrum semiovale and kebede radiata hypodensities which may represent chronic small vessel ischemic changes with underlying infarct not excluded. Right basilar ganglia suggested chronic lacunar infarct. Nonspecific partially empty sella CT head, neck, 06/22/2023: 1. Chronic appearing infarcts, better seen on CT evaluation earlier same date. If there is persistent clinical concern for acute infarction, MRI brain without contrast suggested. 2. No evidence of hemodynamically significant intracranial stenosis, proximal occlusion or aneurysm in the [place]. 3. No evidence of hemodynamically significant cervical stenosis or dissection in the neck MRI head, 06/23/2023: No acute infarct, mass effect or acute intracranial hemorrhage.(There is an old right cerebellar infarct. Chronic right basal ganglia lacunar infarct. Old left temporoparietal infarct.) vital signs Vital Sign Date Time Temp Pulse Resp B/P (MAP) Pulse Ox O2 Delivery O2 Flow Rate FiO2 11/21/24 21:47 152/63 11/21/24 16:32 97.0 107 20 92 97.0 11/21/24 08:00 Room Air* 0 21 Total Intake and Output 11/20/24 11/20/24 11/21/24 15:00 23:00 07:00 Intake Total 0 ml 1250 ml Balance 0 ml 1250 ml medications Current Medications Medications Dose Ordered Sig/Tasia Route Start Time Stop Time Status Last Admin Dose Admin Hydralazine HCl 10 mg Q6HP PRN IV 11/13/24 21:45 11/21/24 21:47 10 MG Ondansetron HCl 4 mg Q4HP PRN IV 11/13/24 21:45 Enoxaparin Sodium 30 mg DAILY SC 11/14/24 10:00 11/21/24 10:37 30 MG Nitroglycerin 0.4 mg Q5MINP PRN SL 11/13/24 21:45 Morphine Sulfate 2 mg Q30M PRN IV 11/13/24 21:45 Amino Acids 0 ml @ 0 mls/hr PER PHARMACY IV 11/13/24 22:30 Acetaminophen 650 mg Q6HP PRN PO 11/15/24 01:00 Sodium Chloride 10 ml QSHIFT@10,22 IV 11/16/24 22:00 11/21/24 23:11 10 ML Diagnostic Test (Pha) 1 strip Q6HR 11/17/24 12:00 11/21/24 18:02 1 STRIP Insulin Human Regular FOLLOW SLIDING SCALE Q6HR SC 11/17/24 12:00 11/21/24 18:01 4 UNITS Dextrose 50 ml UD IV 11/17/24 11:00 Ketorolac Tromethamine 15 mg Q6HPRN PRN IV 11/18/24 13:15 11/23/24 13:14 Dextrose/Sodium Chloride 1,000 ml @ 50 mls/hr Q20H IV 11/20/24 16:00 11/21/24 12:30 50 MLS/HR Aspirin 300 mg DAILY [place] 11/21/24 10:00 11/21/24 10:38 300 MG Fat Emulsion Intravenous 150 ml/Potassium Acetate 40 meq/ Magnesium Sulfate 4 meq/ Multivitamins 10 ml/Chromium/ Copper/Manganese/ Zinc 1 ml/Amino Acids/Dextrose/ Purified Water 1,332 ml @ 55 mls/hr [id number] IV 11/21/24 22:00 11/22/24 21:59 11/21/24 21:38 55 MLS/HR objective General: the patient is well developed and nourished. No acute distress. MENTAL STATUS: Subjective SPEECH, LANGUAGE, HIGHER CORTICAL FUNCTION: no aphasia or dysathria. CRANIAL NERVES: Pupils are equal, round and reactive. EOMs full and conjugate. No nystagmus. Facial sensation intact in all three divisions bilaterally. Mandibular strength intact. Facial muscles symmetrical and strength intact. SENSATION: Sensation to touch and pinprick is normal. MOTOR: Normal tone in the upper and lower extremity. Normal muscle bulk. No fasciculations. No abnormal movements or posturing. Muscle strength of the major groups in the extremities is 4-5/5, possibly weaker on the right side. REFLEXES: Deep tendon reflexes are symmetrical. No pathological reflexes. CEREBELLAR/COORDINATION: Finger to nose is normal bilaterally. GAIT/STATION: deferred laboratory and microbiology Laboratory Tests 11/21/24 07:50 11/16/24 14:53 Test 11/21/24 07:50 Range/Units Serum Glucose 130 H 74-106 mg/dL Problem List Acute pontine stroke on 11/11/2024 with blurry vision, right facial droop, speech difficulty, dysphagia Stroke in 01/2023 with good recovery Multiple strokes per CT/MRI scan Cognitive dysfunction/dementia Atrial septal defect Assessment/Plan Monitoring Supportive treatment Extremity venous study to rule out DVT Telemetry Aspirin 300mg DC/81 mg daily Lipitor 80 mg daily DVT prophylaxis/Lovenox Speech pathology evaluation Up to chair Physical therapy Further address cognitive deficits/dementia as outpatient Transfer to higher level care Re: Intra-atrial defect More recommendation per clinical course This medical document was created using an electronic medical record system with [employer] dictation system. Although this document has been carefully reviewed, there may still be some phonetic and typographical errors. These areas are purely typographical due to imperfections of the software programs, and do not reflect any compromise in the patient's medical care. Prognosis poor Dietary Evaluation Review Comments: Advance TPN to meet >75% estimated needs Monitor TPN tolerance, weight trend, lab values Expected Outcomes/Goals: To meet > 75% estimated needs fu 2-3 days Plan discussed with: Other IVAN VAUGHAN MD Nov 21, 2024 23:50
[2024-11-22] VITALS (8 sets, daily range): BP systolic 124–146; BP diastolic 59–90; PULSE 69–97; RESP 17–19; TEMP 97.1–98.1; O2SAT 95–100
[2024-11-22 07:21] LABS: Alanine Aminotransferase 12 U/L (7-40); Alkaline Phosphatase 103 U/L (46-116); Anion Gap 10 (5-15); Aspartate Aminotransferase 17 U/L (<34); BUN/Creatinine Ratio 26.4 (10.0-20.0); Carbon Dioxide 23 mmol/L (20-31); Magnesium 1.8 mg/dL (1.6-2.6); Potassium 4.2 mmol/L (3.5-5.1); Sodium 141 mmol/L (136-145)
[2024-11-22 07:22] LABS: Albumin 3.4 g/dL (3.2-4.8)
[2024-11-22 07:23] LABS: Bilirubin, Total 0.3 mg/dL (0.2-1.0); Phosphorus 3.1 mg/dL (2.4-5.1)
[2024-11-22 07:24] LABS: Blood Urea Nitrogen 28 mg/dL (9-23); Calcium 8.7 mg/dL (8.7-10.4); Chloride 108 mmol/L (98-107); Glucose 171 mg/dL (74-106); Total Protein 5.7 g/dL (5.7-8.2)
--- NOTE | 2024-11-22 13:08 | DVHPN2 ---
Subjective Patient continues to report having trouble swallowing. Reviewed: Care Plan, H&P, Labs, Medications Changes from previous H/P or p: No Changes General: Per HPI Objective Vitals Vital Signs Date Time Temp Pulse Resp B/P (MAP) Pulse Ox O2 Delivery O2 Flow Rate FiO2 11/22/24 09:00 97.7 69 18 145/72 (96) 99 97.7 11/21/24 20:00 Room Air* 0 21 Intake/Output Intake and Output 11/22/24 07:00 Intake Total 1245 ml Output Total 1 ml Balance 1244 ml Intake Oral 0 ml IV Total 1245 ml Output Urine Total 1 ml # Voids 3 # Bowel Movements 1 General Appearance: Alert, Oriented X3, Cooperative, No acute distress HEENT: Atraumatic, PERRLA Lungs: Clear to auscultation, Normal air movement Cardiovascular: Normal S1, Normal S2 Musculoskeletal: Normal sensory function, Normal motor function Extremities: No clubbing, No cyanosis Neuro: Normal gait, Normal speech Skin: Dry, Intact Psych/Mental Status: Mental status NL, Mood NL Medications Current Medications Medications Dose Ordered Sig/Tasia Route Start Time Stop Time Status Last Admin Dose Admin Hydralazine HCl 10 mg Q6HP PRN IV 11/13/24 21:45 11/21/24 21:47 10 MG Ondansetron HCl 4 mg Q4HP PRN IV 11/13/24 21:45 Enoxaparin Sodium 30 mg DAILY SC 11/14/24 10:00 11/22/24 10:29 30 MG Nitroglycerin 0.4 mg Q5MINP PRN SL 11/13/24 21:45 Morphine Sulfate 2 mg Q30M PRN IV 11/13/24 21:45 Amino Acids 0 ml @ 0 mls/hr PER PHARMACY IV 11/13/24 22:30 Acetaminophen 650 mg Q6HP PRN PO 11/15/24 01:00 Sodium Chloride 10 ml QSHIFT@10,22 IV 11/16/24 22:00 11/22/24 10:00 10 ML Diagnostic Test (Pha) 1 strip Q6HR 11/17/24 12:00 11/22/24 11:42 1 STRIP Insulin Human Regular FOLLOW SLIDING SCALE Q6HR SC 11/17/24 12:00 11/22/24 11:44 4 UNITS Dextrose 50 ml UD IV 11/17/24 11:00 Ketorolac Tromethamine 15 mg Q6HPRN PRN IV 11/18/24 13:15 11/23/24 13:14 Dextrose/Sodium Chloride 1,000 ml @ 50 mls/hr Q20H IV 11/20/24 16:00 11/22/24 05:33 50 MLS/HR Aspirin 300 mg DAILY [place] 11/21/24 10:00 11/21/24 10:38 300 MG Fat Emulsion Intravenous 150 ml/Potassium Acetate 40 meq/ Magnesium Sulfate 4 meq/ Multivitamins 10 ml/Chromium/ Copper/Manganese/ Zinc 1 ml/Amino Acids/Dextrose/ Purified Water 1,332 ml @ 55 mls/hr [id number] IV 11/21/24 22:00 11/22/24 21:59 11/21/24 21:38 55 MLS/HR Fat Emulsion Intravenous 150 ml/Potassium Acetate 10 meq/ Potassium Phosphate 11 meq/ Calcium Gluconate 2.3 meq/Magnesium Sulfate 8 meq/ Multivitamins 10 ml/Chromium/ Copper/Manganese/ Zinc 1 ml/Amino Acids/Dextrose/ Purified Water 1,325.4462 ml @ 55 mls/hr Q24H6M IV 11/22/24 22:00 11/23/24 21:59 Laboratory Results Laboratory Tests 11/16/24 14:53 11/22/24 06:15 Chemistry Test 11/22/24 06:15 Albumin 3.4 g/dL (3.2-4.8) Calcium Level 8.7 mg/dL (8.7-10.4) Magnesium Level 1.8 mg/dL (1.6-2.6) Phosphorus Level 3.1 mg/dL (2.4-5.1) Total Protein 5.7 g/dL (5.7-8.2) LFT Test 11/22/24 06:15 Alanine Aminotransferase (ALT) 12 U/L (7-40) Alkaline Phosphatase 103 U/L (46-116) Aspartate Amino Transferase (AST) 17 U/L (<34) Total Bilirubin 0.3 mg/dL (0.2-1.0) Urinalysis Test 11/14/24 02:00 Urine Color Light-yellow (Yellow) Urine Clarity Turbid (Clear) H Urine pH 6.0 (5.0-9.0) Urine Specific [place] 1.026 (1.001-1.035) Urine Protein 1+ (Negative) H Urine Ketones 4+ (Negative) H Urine Blood Negative /uL (Negative) Urine Nitrite Negative (Negative) Urine Bilirubin Negative (Negative) Urine Urobilinogen Normal mg/dL (Negative) Urine Leukocyte Esterase Negative /uL (Negative) Urine RBC None seen /hpf (0 - 4) Urine Microscopic WBC 2 /HPF (0-5) Urine Squamous Epithelial Cells Mod /hpf (<5) Urine Bacteria None seen /hpf (None Seen) Urine Hyaline Casts Few /lpf (0 - 2) Urine Mucus Few (None Seen) Urine Glucose Normal mg/dL (Normal) Microbiology Microbiology Date/Time Source Procedure Growth Status 11/13/24 23:00 Nose MRSA Screen - Final Complete Labs and/or images reviewed: Labs reviewed by me, Image(s) reviewed by me Assessment/Plan Assessment/Plan Impression: -acute CVA involving the tobias -history of CVA -diabetes mellitus -accelerated hypertension -paroxysmal atrial fibrillation -metabolic acidosis Plan: Events: No events overnight. Nursing swallow evaluation performed. Continues to have difficulty swallowing. Plans for PEG tube tomorrow. Repeat labs in a.m. -GI consult for PEG tube. -neurology consultation -social service consultation for transfer to higher level of care -continue TPN -speech therapy for swallow evaluation: Daily swallow evaluation by nurse -regular insulin sliding scale Total time spent with patient discussing and formulating plan of care: 35 minutes. This medical document was created using an electronic medical record system with [employer] dictation system. Although this document has been carefully reviewed, there may still be some phonetic and typographical errors. These areas are purely typographical due to imperfections of the software programs, and do not reflect any compromise in the patient's medical care. Plan discussed with: Patient, Other (RN) My Orders Orders - RY ANAYA NP Procedure Category Date Status Time Basic Metabolic Panel LAB 11/23/24 Verified 04:00 PTPTT LAB 11/23/24 Verified 04:00 Date of Service: Nov 22, 2024 Billing Provider: RY ANAYA NP Common Visit Codes: [id number] INP/OBS CARE(HIGH) RY ANAYA NP Nov 22, 2024 13:08
[2024-11-22] MEDS: TPN PER PHARMACY IV NR (21:57)
--- NOTE | 2024-11-22 22:58 | DVHPN2 ---
Progress Note - Dictate Date Seen: Nov 22, 2024 Medical Necessity Reason Pt with a Central, PICC or Fol: No Subjective No new complaints Failed swallow evaluation;unable to swallow vital signs Vital Sign Date Time Temp Pulse Resp B/P (MAP) Pulse Ox O2 Delivery O2 Flow Rate FiO2 11/22/24 21:00 98.1 97 19 139/69 (92) 98 98.1 11/22/24 08:00 Room Air* 0 21 Total Intake and Output 11/21/24 11/21/24 11/22/24 15:00 23:00 07:00 Intake Total 255 ml 990 ml Output Total 1 ml Balance 255 ml 989 ml medications Current Medications Medications Dose Ordered Sig/Tasia Route Start Time Stop Time Status Last Admin Dose Admin Hydralazine HCl 10 mg Q6HP PRN IV 11/13/24 21:45 11/21/24 21:47 10 MG Ondansetron HCl 4 mg Q4HP PRN IV 11/13/24 21:45 Enoxaparin Sodium 30 mg DAILY SC 11/14/24 10:00 11/22/24 10:29 30 MG Nitroglycerin 0.4 mg Q5MINP PRN SL 11/13/24 21:45 Morphine Sulfate 2 mg Q30M PRN IV 11/13/24 21:45 Amino Acids 0 ml @ 0 mls/hr PER PHARMACY IV 11/13/24 22:30 Acetaminophen 650 mg Q6HP PRN PO 11/15/24 01:00 Sodium Chloride 10 ml QSHIFT@10,22 IV 11/16/24 22:00 11/22/24 22:03 10 ML Diagnostic Test (Pha) 1 strip Q6HR 11/17/24 12:00 11/22/24 17:08 1 STRIP Insulin Human Regular FOLLOW SLIDING SCALE Q6HR SC 11/17/24 12:00 11/22/24 17:08 2 UNITS Dextrose 50 ml UD IV 11/17/24 11:00 Ketorolac Tromethamine 15 mg Q6HPRN PRN IV 11/18/24 13:15 11/23/24 13:14 Dextrose/Sodium Chloride 1,000 ml @ 50 mls/hr Q20H IV 11/20/24 16:00 11/22/24 05:33 50 MLS/HR Aspirin 300 mg DAILY NM 11/21/24 10:00 11/21/24 10:38 300 MG Fat Emulsion Intravenous 150 ml/Potassium Acetate 10 meq/ Potassium Phosphate 11 meq/ Calcium Gluconate 2.3 meq/Magnesium Sulfate 8 meq/ Multivitamins 10 ml/Chromium/ Copper/Manganese/ Zinc 1 ml/Amino Acids/Dextrose/ Purified Water 1,325.4462 ml @ 55 mls/hr Q24H6M IV 11/22/24 22:00 11/23/24 21:59 11/22/24 21:57 55 MLS/HR objective General: the patient is well developed and nourished. No acute distress. no aphasia or dysathria. CRANIAL NERVES: Pupils are equal, round and reactive. EOM intactNo nystagmus. MOTOR: Normal tone in the upper and lower extremity. Normal muscle bulk. No fasciculations. No abnormal movements or posturing. Muscle strength of the major groups in the extremities is 4-5/5, possibly weaker on the right side. Pulmonary: Clear to auscultation and percussion bilaterally. Cardiac: Regular rate and rhythm. No murmur Abdomen: Soft, nontender, nondistended, bowel sounds present all 4 quadrants, no guarding, no rigidity, no organomegaly. Extremities: No cyanosis, clubbing, no edema laboratory and microbiology Laboratory Tests 11/22/24 06:15 11/16/24 14:53 Test 11/22/24 06:15 Range/Units Serum Glucose 171 H 74-106 mg/dL Problems(with codes): (1) Hypertensive urgency (2) Dysphagia (3) TIA (transient ischemic attack) Prognosis PLAN Patient is NPO I will arrange a possible EGD with PEG tube placement tomorrow Dietary Evaluation Review Comments: Advance TPN to meet >75% estimated needs Monitor TPN tolerance, weight trend, lab values Expected Outcomes/Goals: To meet > 75% estimated needs fu 2-3 days Plan discussed with: Patient, Other (Dandy Morocho) DESIRE PICKERING MD Nov 22, 2024 22:58
[2024-11-23] VITALS (7 sets, daily range): BP systolic 119–152; BP diastolic 59–68; PULSE 71–101; RESP 16–18; TEMP 97.4–98.1; O2SAT 95–99
[2024-11-23] MEDS: ceFAZolin 1GM/50ML 50 ML IV ONE (01:14)
[2024-11-23 06:23] LABS: Basophils # (auto) 0 10 ^3/uL (0-0.2); Basophils % (auto) 0.9 % (0.0-2.0); Eosinophils # (auto) 0.3 10 ^3/uL (0-0.8); Eosinophils % (auto) 5.1 % (0.0-7.0); Hemoglobin 13.9 g/dL (12.2-16.2); Lymphocytes # (auto) 1.4 10 ^3/uL (0.4-5.4); Lymphocytes % (auto) 24.9 % (10.0-50.0); Mean Corpuscular Hemoglobin 32.6 pg (28.0-32.0); Mean Corpuscular Hgb Conc. 34.7 g/dL (32.0-36.0); Mean Corpuscular Volume 93.9 fL (80.0-100.0); Monocytes # (auto) 0.7 10 ^3/uL (0-1.3); Neutrophils # (auto) 3.1 10 ^3/uL (1.6-8.6); Neutrophils % (auto) 56.1 % (37.0-80.0); Nucleated Red Blood Cells % 0.2 %; Platelet Count (auto) 231 10^3/uL (140-450); Red Blood Cells 4.26 10^6/uL (4.0-5.20); Red Cell Distribution Width 13.9 % (11.8-14.3); White Blood Cell 5.6 10^3/uL (4.4-10.8)
[2024-11-23 06:31] LABS: Alanine Aminotransferase 10 U/L (7-40); Albumin 3.8 g/dL (3.2-4.8); Alkaline Phosphatase 102 U/L (46-116); Anion Gap 10 (5-15); Aspartate Aminotransferase 18 U/L (<34); BUN/Creatinine Ratio 19.3 (10.0-20.0); Blood Urea Nitrogen 22 mg/dL (9-23); Calcium 9.4 mg/dL (8.7-10.4); Carbon Dioxide 23 mmol/L (20-31); Magnesium 2.2 mg/dL (1.6-2.6); Potassium 3.9 mmol/L (3.5-5.1); Sodium 142 mmol/L (136-145); Total Protein 6.2 g/dL (5.7-8.2)
[2024-11-23 06:32] LABS: Bilirubin, Total 0.3 mg/dL (0.2-1.0); INR 0.96 (0.9-1.15); Partial Thromboplastin Time 28.6 SEC (24.5-34.5); Phosphorus 2.8 mg/dL (2.4-5.1); Prothrombin Time 10.2 sec (9.3-11.8)
[2024-11-23 06:43] LABS: Chloride 109 mmol/L (98-107); Glucose 123 mg/dL (74-106)
--- NOTE | 2024-11-23 13:03 | DVHPN2 ---
Progress Note - Dictate Date Seen: Nov 23, 2024 Medical Necessity Reason Pt with a Central, PICC or Fol: No Subjective Patient underwent swallow evaluation yesterday and was cleared for pureed diet Nurse reported that the patient is tolerating a pureed diet without coughing vital signs Vital Sign Date Time Temp Pulse Resp B/P (MAP) Pulse Ox O2 Delivery O2 Flow Rate FiO2 11/23/24 08:00 72 11/23/24 08:00 18 98 Room Air* 0 21 11/23/24 08:00 97.4 149/68 (95) 97.4 Total Intake and Output 11/22/24 11/22/24 11/23/24 15:00 23:00 07:00 Intake Total 0 ml 120 ml Balance 0 ml 120 ml medications Current Medications Medications Dose Ordered Sig/Tasia Route Start Time Stop Time Status Last Admin Dose Admin Hydralazine HCl 10 mg Q6HP PRN IV 11/13/24 21:45 11/21/24 21:47 10 MG Ondansetron HCl 4 mg Q4HP PRN IV 11/13/24 21:45 Enoxaparin Sodium 30 mg DAILY SC 11/14/24 10:00 11/23/24 11:16 30 MG Nitroglycerin 0.4 mg Q5MINP PRN SL 11/13/24 21:45 Morphine Sulfate 2 mg Q30M PRN IV 11/13/24 21:45 Amino Acids 0 ml @ 0 mls/hr PER PHARMACY IV 11/13/24 22:30 Acetaminophen 650 mg Q6HP PRN PO 11/15/24 01:00 Sodium Chloride 10 ml QSHIFT@10,22 IV 11/16/24 22:00 11/23/24 10:00 10 ML Diagnostic Test (Pha) 1 strip Q6HR 11/17/24 12:00 11/23/24 12:10 1 STRIP Insulin Human Regular FOLLOW SLIDING SCALE Q6HR SC 11/17/24 12:00 11/23/24 12:12 2 UNITS Dextrose 50 ml UD IV 11/17/24 11:00 Ketorolac Tromethamine 15 mg Q6HPRN PRN IV 11/18/24 13:15 11/23/24 13:14 Dextrose/Sodium Chloride 1,000 ml @ 50 mls/hr Q20H IV 11/20/24 16:00 11/23/24 04:00 50 MLS/HR Aspirin 300 mg DAILY KS 11/21/24 10:00 11/21/24 10:38 300 MG Fat Emulsion Intravenous 150 ml/Potassium Acetate 10 meq/ Potassium Phosphate 11 meq/ Calcium Gluconate 2.3 meq/Magnesium Sulfate 8 meq/ Multivitamins 10 ml/Chromium/ Copper/Manganese/ Zinc 1 ml/Amino Acids/Dextrose/ Purified Water 1,325.4462 ml @ 55 mls/hr Q24H6M IV 11/22/24 22:00 11/23/24 21:59 11/22/24 21:57 55 MLS/HR objective General: the patient is well developed and nourished. No acute distress. no aphasia or dysathria. CRANIAL NERVES: Pupils are equal, round and reactive. EOM intactNo nystagmus. MOTOR: Normal tone in the upper and lower extremity. Normal muscle bulk. No fasciculations. No abnormal movements or posturing. Muscle strength of the major groups in the extremities is 4-5/5, possibly weaker on the right side. Pulmonary: Clear to auscultation and percussion bilaterally. Cardiac: Regular rate and rhythm. No murmur Abdomen: Soft, nontender, nondistended, bowel sounds present all 4 quadrants, no guarding, no rigidity, no organomegaly. Extremities: No cyanosis, clubbing, no edema laboratory and microbiology Laboratory Tests 11/23/24 05:23 Test 11/23/24 05:23 Range/Units Serum Glucose 123 H 74-106 mg/dL Problems(with codes): (1) Hypertensive urgency (2) Dysphagia (3) TIA (transient ischemic attack) Prognosis Plan We will cancel the EGD and PEG tube placement today Continue pureed diet for now and advance as her neurological function improves I will follow this patient with you, once again thank you for allowing me to participate in the care of this patient Dietary Evaluation Review Comments: Advance TPN to meet >75% estimated needs Monitor TPN tolerance, weight trend, lab values Expected Outcomes/Goals: To meet > 75% estimated needs fu 2-3 days Plan discussed with: Other (Nurse) DESIRE PICKERING MD Nov 23, 2024 13:03
--- NOTE | 2024-11-23 15:33 | DVHPN2 ---
Subjective Patient continues to report having trouble swallowing. Reviewed: Care Plan, H&P, Labs, Medications Changes from previous H/P or p: No Changes General: Per HPI Objective Vitals Vital Signs Date Time Temp Pulse Resp B/P (MAP) Pulse Ox O2 Delivery O2 Flow Rate FiO2 11/23/24 12:00 97.8 75 16 138/61 (86) 98 97.8 11/23/24 08:00 Room Air* 0 21 Intake/Output Intake and Output 11/23/24 07:00 Intake Total 120 ml Balance 120 ml Intake Oral 120 ml # Voids 5 General Appearance: Alert, Oriented X3, Cooperative, No acute distress HEENT: Atraumatic, PERRLA Lungs: Clear to auscultation, Normal air movement Cardiovascular: Normal S1, Normal S2 Musculoskeletal: Normal sensory function, Normal motor function Extremities: No clubbing, No cyanosis Neuro: Normal gait, Normal speech Skin: Dry, Intact Psych/Mental Status: Mental status NL, Mood NL Medications Current Medications Medications Dose Ordered Sig/Tasia Route Start Time Stop Time Status Last Admin Dose Admin Hydralazine HCl 10 mg Q6HP PRN IV 11/13/24 21:45 11/21/24 21:47 10 MG Ondansetron HCl 4 mg Q4HP PRN IV 11/13/24 21:45 Nitroglycerin 0.4 mg Q5MINP PRN SL 11/13/24 21:45 Morphine Sulfate 2 mg Q30M PRN IV 11/13/24 21:45 Acetaminophen 650 mg Q6HP PRN PO 11/15/24 01:00 Sodium Chloride 10 ml QSHIFT@10,22 IV 11/16/24 22:00 11/23/24 10:00 10 ML Dextrose/Sodium Chloride 1,000 ml @ 50 mls/hr Q20H IV 11/20/24 16:00 11/23/24 04:00 50 MLS/HR Aspirin 300 mg DAILY [place] 11/21/24 10:00 11/21/24 10:38 300 MG Fat Emulsion Intravenous 150 ml/Potassium Acetate 10 meq/ Potassium Phosphate 11 meq/ Calcium Gluconate 2.3 meq/Magnesium Sulfate 8 meq/ Multivitamins 10 ml/Chromium/ Copper/Manganese/ Zinc 1 ml/Amino Acids/Dextrose/ Purified Water 1,325.4462 ml @ 55 mls/hr Q24H6M IV 11/22/24 22:00 11/23/24 21:59 11/22/24 21:57 55 MLS/HR Apixaban 2.5 mg BID PO 11/23/24 22:00 Laboratory Results Laboratory Tests 11/23/24 05:23 Chemistry Test 11/23/24 05:23 Albumin 3.8 g/dL (3.2-4.8) Calcium Level 9.4 mg/dL (8.7-10.4) Magnesium Level 2.2 mg/dL (1.6-2.6) Phosphorus Level 2.8 mg/dL (2.4-5.1) Total Protein 6.2 g/dL (5.7-8.2) Coagulation Test 11/23/24 05:23 Prothrombin Time 10.2 sec (9.3-11.8) Prothrombin Time INR 0.96 (0.9-1.15) Activated Partial Thromboplast Time 28.6 SEC (24.5-34.5) LFT Test 11/23/24 05:23 Alanine Aminotransferase (ALT) 10 U/L (7-40) Alkaline Phosphatase 102 U/L (46-116) Aspartate Amino Transferase (AST) 18 U/L (<34) Total Bilirubin 0.3 mg/dL (0.2-1.0) Urinalysis Test 11/14/24 02:00 Urine Color Light-yellow (Yellow) Urine Clarity Turbid (Clear) H Urine pH 6.0 (5.0-9.0) Urine Specific [place] 1.026 (1.001-1.035) Urine Protein 1+ (Negative) H Urine Ketones 4+ (Negative) H Urine Blood Negative /uL (Negative) Urine Nitrite Negative (Negative) Urine Bilirubin Negative (Negative) Urine Urobilinogen Normal mg/dL (Negative) Urine Leukocyte Esterase Negative /uL (Negative) Urine RBC None seen /hpf (0 - 4) Urine Microscopic WBC 2 /HPF (0-5) Urine Squamous Epithelial Cells Mod /hpf (<5) Urine Bacteria None seen /hpf (None Seen) Urine Hyaline Casts Few /lpf (0 - 2) Urine Mucus Few (None Seen) Urine Glucose Normal mg/dL (Normal) Microbiology Microbiology Date/Time Source Procedure Growth Status 11/13/24 23:00 Nose MRSA Screen - Final Complete Labs and/or images reviewed: Labs reviewed by me, Image(s) reviewed by me Assessment/Plan Assessment/Plan Impression: -acute CVA involving the tobias -history of CVA -diabetes mellitus -accelerated hypertension -paroxysmal atrial fibrillation -metabolic acidosis Plan: Events: Passed swallow evaluation. Peg tube placement canceled. Weaned TPN. Re-evaluate for discharge in a.m. with home health services -GI consult for PEG tube. -neurology consultation -stop Lovenox, start Eliquis -regular insulin sliding scale Total time spent with patient discussing and formulating plan of care: 35 minutes. This medical document was created using an electronic medical record system with [employer] dictation system. Although this document has been carefully reviewed, there may still be some phonetic and typographical errors. These areas are purely typographical due to imperfections of the software programs, and do not reflect any compromise in the patient's medical care. Plan discussed with: Patient, Other (RN) My Orders Orders - RY ANAYA NP Procedure Category Date Status Time Apixaban (Eliquis) PHA 11/23/24 In Process 22:00 * [facility]ward CONS 11/23/24 Transmitted Consult Date of Service: Nov 23, 2024 Billing Provider: RY ANAYA NP Common Visit Codes: [id number] INP/OBS CARE(HIGH) RY ANAYA NP Nov 23, 2024 15:33
[2024-11-23] MEDS: APIXABAN 2.5 MG TAB PO SCH (21:26)
[2024-11-24 01:00] VITALS: BP 147/74; PULSE 75; RESP 18; TEMP 98.2; O2SAT 94
[2024-11-24 05:00] VITALS: BP 140/66; PULSE 69; RESP 17; TEMP 98.1; O2SAT 96
[2024-11-24 08:00] VITALS: PULSE 71; PULSE 73; RESP 18; O2SAT 98
[2024-11-24 09:00] VITALS: BP 151/97; PULSE 67; RESP 18; TEMP 97.9; O2SAT 99
[2024-11-24 13:00] VITALS: BP 149/82; PULSE 73; RESP 18; TEMP 97.2; O2SAT 97
[2024-11-24] MEDS ORDERED: APIX2.5T PO (13:26)
--- NOTE | 2024-11-24 13:33 | DVHDS2 ---
Discharge Summary Date of Admission Nov 13, 2024 at 18:54 Date of Discharge: Nov 24, 2024 Admitting Diagnosis Acute CVA Labs/Diagnostic Data: Laboratory Results Test 11/23/24 12:07 11/23/24 05:23 11/21/24 07:50 11/15/24 04:21 POC Glucose 148 mg/dl (70-106) White Blood Count 5.6 10^3/uL (4.4-10.8) Red Blood Count 4.26 10^6/uL (4.0-5.20) Hemoglobin 13.9 g/dL (12.2-16.2) Hematocrit 40.0 % (36.0-46.0) Mean Corpuscular Volume 93.9 fL (80.0-100.0) Mean Corpuscular Hemoglobin 32.6 pg (28.0-32.0) Mean Corpuscular Hemoglobin Concent 34.7 g/dL (32.0-36.0) Red Cell Distribution Width 13.9 % (11.8-14.3) Platelet Count 231 10^3/uL (140-450) Mean Platelet Volume 9.2 fL (6.9-10.8) Neutrophils (%) (Auto) 56.1 % (37.0-80.0) Lymphocytes (%) (Auto) 24.9 % (10.0-50.0) Monocytes (%) (Auto) 13.0 % (0.0-12.0) Eosinophils (%) (Auto) 5.1 % (0.0-7.0) Basophils (%) (Auto) 0.9 % (0.0-2.0) Neutrophils # (Auto) 3.1 10 ^3/uL (1.6-8.6) Lymphocytes # (Auto) 1.4 10 ^3/uL (0.4-5.4) Monocytes # (Auto) 0.7 10 ^3/uL (0-1.3) Eosinophils # (Auto) 0.3 10 ^3/uL (0-0.8) Basophils # (Auto) 0 10 ^3/uL (0-0.2) Nucleated Red Blood Cells 0.2 % Prothrombin Time 10.2 sec (9.3-11.8) Prothrombin Time INR 0.96 (0.9-1.15) Activated Partial Thromboplast Time 28.6 SEC (24.5-34.5) Sodium Level 142 mmol/L (136-145) Potassium Level 3.9 mmol/L (3.5-5.1) Chloride Level 109 mmol/L (98-107) Carbon Dioxide Level 23 mmol/L (20-31) Anion Gap 10 (5-15) Blood Urea Nitrogen 22 mg/dL (9-23) Creatinine 1.14 mg/dL (0.550-1.02) Glomerular Filtration Rate Calc 49 mL/min (>90) BUN/Creatinine Ratio 19.3 (10.0-20.0) Serum Glucose 123 mg/dL (74-106) Calcium Level 9.4 mg/dL (8.7-10.4) Phosphorus Level 2.8 mg/dL (2.4-5.1) Magnesium Level 2.2 mg/dL (1.6-2.6) Total Bilirubin 0.3 mg/dL (0.2-1.0) Aspartate Amino Transferase (AST) 18 U/L (<34) Alanine Aminotransferase (ALT) 10 U/L (7-40) Alkaline Phosphatase 102 U/L (46-116) Total Protein 6.2 g/dL (5.7-8.2) Albumin 3.8 g/dL (3.2-4.8) Triglycerides Level 112 mg/dL (< 150) Estimated GFR () 60 mL/min Estimated GFR (Non- 49 mL/min Test 11/14/24 16:55 11/14/24 16:13 11/14/24 06:48 11/14/24 02:00 Cholesterol Level 234 mg/dL (< 200) LDL Cholesterol 144 mg/dL (< 100) HDL Cholesterol 66 mg/dL (40-59) Beta-Hydroxybutyric Acid 1.872 mmol/L (< 0.4) Thyroid Stimulating Hormone (TSH) 3.13 uIU/mL (0.55-4.78) Hemoglobin A1c 5.8 % A1C (<5.7) Hepatitis B Surface Antigen Negative (Negative) Hepatitis C Antibody Negative (Negative) Urine Color Light-yellow (Yellow) Urine Clarity Turbid (Clear) Urine pH 6.0 (5.0-9.0) Urine Specific [place] 1.026 (1.001-1.035) Urine Protein 1+ (Negative) Urine Ketones 4+ (Negative) Urine Blood Negative /uL (Negative) Urine Nitrite Negative (Negative) Urine Bilirubin Negative (Negative) Urine Urobilinogen Normal mg/dL (Negative) Urine Leukocyte Esterase Negative /uL (Negative) Urine RBC None seen /hpf (0 - 4) Urine Microscopic WBC 2 /HPF (0-5) Urine Squamous Epithelial Cells Mod /hpf (<5) Urine Bacteria None seen /hpf (None Seen) Urine Hyaline Casts Few /lpf (0 - 2) Urine Mucus Few (None Seen) Urine Glucose Normal mg/dL (Normal) Test 11/13/24 22:22 Troponin I High Sensitivity 6 ng/L (</=34) Other Laboratory Tests 11/23/24 05:23 Brief Hx & Hospital Course: History of Present Illness 79-year-old female transferred from [facility] for continuity of care and disposition. Patient presented to outside facility on 11/11/2024 w ith complaints of blurred vision, right facial droop, expressive aphasia and difficulty swollen that has been ongoing since the day prior at 5:[address] of the head from outside facility was essentially negative for acute pathology. MRI of the brain was taken prior to the patient being transferred. Results will be faxed. It was reported that the patient did fail a swallow study today. Patient was stable in stable condition. Patient continues to complain of blurred vision on bilateral sinclair. No facial droop noted. All extremities are equal in strength. She does report having difficulty formulating words. No cardiac or respiratory complaints. Course of hospitalization: Patient had acute pontine CVA as noted on MRI performed at [facility]. CT angiogram of the neck was negative for any large vessel occlusion. Patient had transesophageal echocardiogram with findings of large anteroseptal shunt, probable etiology for patient's acute and previous CVA. Attempts were made to transfer patient to higher level of care for structural cardiology for assessment of closure of septal defect. Patient was evaluated by machine shop supervisor at both [facility] and [facility] who both state that patient does not qualify for septal intervention. Neurology consultation was obtained at this facility. Patient failed initial swallow evaluation and was placed on TPN. Patient was evaluated for PEG tube placement, had repeat swallow evaluation for which the patient was able to tolerate a pureed diet. Patient has been ambulating greater than 70 ft with a walker, for which she states she has one at home. Patient has a we will be discharged home with home health services. She is instructed to continue with a mechanical soft or pureed diet. She will be discharged home also with Eliquis 2.5 mg p.o. twice a day. Patient will also follow up with her PCP in 1-2 weeks. She is agreeable with discharge plan. All questions answered. Physical examination General: Alert and Oriented x3. No acute distress. Well-nourished. Eyes: EOMI. Anicteric. HENT: Moist mucous membranes. Lungs: Clear to auscultation bilaterally. No accessory muscle use. Cardiovascular: Regular rate and rhythm. No murmur. No JVD. Abdomen: Soft, non-tender and non-distended. No palpable masses. Extremities: No edema. Non-tender. Skin: No rashes or lesions. Warm. Neurologic: No focal neurological deficits. CN II-XII grossly intact, but not individually tested. Psychiatric: Cooperative. Appropriate mood and affect. Total time spent with patient discussing and formulating plan of care: 35 minutes. This medical document was created using an electronic medical record system with [employer] dictation system. Although this document has been carefully reviewed, there may still be some phonetic and typographical errors. These areas are purely typographical due to imperfections of the software programs, and do not reflect any compromise in the patient's medical care. Condition at Discharge: Fair Final Diagnosis/Problems List Acute pontine CVA with dysphagia Secondary diagnosis: -history of CVA -diabetes mellitus -accelerated hypertension -paroxysmal atrial fibrillation -metabolic acidosis -dysphagia Discharge Disposition: Home with Health Services Discharge Instruct/Medications Diet: Cardiac 2g Na,low cholest Activity: No Restrictions, As Tolerated Follow Up/Referral: Follow up with PCP, Dr. Berman in one week Follow up with Dr. Renteria, neurology in 1-2 weeks Medications: Continue all home medications Eliquis 2.5 mg p.o. b.i.d. 36 Discharge Statement: "Patient was advised to return to the ER or call 911 if any headaches, dizziness, shortness of breath, chest pain, abdominal pain, bleeding, fevers, or worsening of medical condition. Patient was counseled about treatment plan, medications, possible side effects, patientverbalized understanding. All questions were answered to the best of my ability. This discharge took greater then 30 minutes in planning, reviewing documentation, counseling the patient, and discussing with other team members." ASSESSMENT ASSESSMENT Assessment Acute pontine CVA with dysphagia Date of Service: Nov 24, 2024 Billing Provider: RY ANAYA NP Common Visit Codes: 42511-MWP/OBS DISCH DAY >30min RY ANAYA NP Nov 24, 2024 13:33
== END 2024-11-24 17:00 | disposition home or self-care (01) | DRG 65 ==
LOC: TELE-WESTW 18:54
PROVIDERS: ADMIT Nurse Practitioner Acute Care; ATTEND Nurse Practitioner Acute Care
PROC: B246ZZ4 Ultrasonography of Right and Left Heart, Transesophageal (ICD-10-PCS; principal; 2024-11-15)
PROC: 02HV33Z Insertion of Infusion Device into Superior Vena Cava, Percutaneous Approach (ICD-10-PCS; 2024-11-16)
PROC: B548ZZA Ultrasonography of Superior Vena Cava, Guidance (ICD-10-PCS; 2024-11-16)
DX: I63.9 Cerebral infarction, unspecified (principal); E87.20 Acidosis, unspecified; R47.01 Aphasia; R13.10 Dysphagia, unspecified; I48.0 Paroxysmal atrial fibrillation; N18.9 Chronic kidney disease, unspecified; I16.0 Hypertensive urgency; F17.200 Nicotine dependence, unspecified, uncomplicated; K21.9 Gastro-esophageal reflux disease without esophagitis; F02.80 Dementia in other diseases classified elsewhere, unspecified severity, without behavioral disturbance, psychotic disturbance, mood disturbance, and anxiety; G30.9 Alzheimer's disease, unspecified; I44.0 Atrioventricular block, first degree; I13.10 Hypertensive heart and chronic kidney disease without heart failure, with stage 1 through stage 4 chronic kidney disease, or unspecified chronic kidney disease; E66.9 Obesity, unspecified; E11.22 Type 2 diabetes mellitus with diabetic chronic kidney disease; Z82.5 Family history of asthma and other chronic lower respiratory diseases; Z82.49 Family history of ischemic heart disease and other diseases of the circulatory system; Z79.899 Other long term (current) drug therapy; Z79.01 Long term (current) use of anticoagulants; Z68.27 Body mass index [BMI] 27.0-27.9, adult
CPT/HCPCS: 36415; 36569; 71045; 76937; 80048; 80053; 80061; 80069; 81001; 82010; 82962; 83036; 83735; 84100; 84443; 84478; 84484; 85025; 85610; 85730; 86803; 86850; 86900; 86901; 87081; 87340; 92610; 93005; 93312; 93886; 93970; 97110; 97116; 97163; 97530; 99152; G0378; J1815; J1885; J2003; J2250

== ENCOUNTER 2024-12-04 16:48 | Inpatient (IN) | payer OTHER, MEDICAID ==
[~2024-12-04] VITALS: Ht 160 cm; Wt 67.4 kg
[~2024-12-04 16:48] MED LIST changes: +APIX2.5T PO
--- NOTE | 2024-12-04 18:28 | ED.PDOC ---
Musculoskeletal HPI Comments Patient is an 79-year-old female with a past medical history of hypertension, multiple strokes, type 2 diabetes mellitus, dementia presented to the ED from the discharge clinic with a chief complaint of left 5th toe pain and bluish discoloration for the last few days. Patient was recently discharged from the hospital about 10 days ago after being admitted for blurred vision, right facial droop, expressive aphasia and difficulty swallowing following which MRI was done which showed acute pontine CVA, following which a BECKY was done which revealed a large anterior septal shunt were made to transfer the patient to higher level of care for structural cardiology assessment for closure of septal defect but she was denied as she did not qualify for any septal intervention. Patient was eventually discharged home with Eliquis 2.5 mg p.o. b.i.d. but she was not able to pick it up from the pharmacy. Patient denied any chest pain, shortness of breath, abdominal pain, blurred vision, headache, difficulty swallowing. Chief Complaint: Lower Extremity Time Seen by MD: 17:14 Primary Care Provider: ELMER Holt Notes: Nurses Notes, Medications, Allergies Allergies: Coded Allergies: NO KNOWN ALLERGIES (Unverified , 11/23/24) Home Meds Active Scripts Apixaban Base (ELIQUIS) 2.5 Mg Tab, 2.5 MG PO BID for 30 Days, #60 TAB Prov:RY ANAYA LOOP DRIER OPERATOR 11/24/24 Amlodipine Besylate (Amlodipine Besylate) 10 Mg Tab, 1 TAB PO DAILY for 60 Days, #60 TAB Prov:RY ANAYA LOOP DRIER OPERATOR 06/23/23 Metoprolol Succinate (Metoprolol Succinate Er) 25 Mg Tab, 1 TAB PO DAILY for 60 Days, #60 TAB Prov:RY ANAYA LOOP DRIER OPERATOR 06/23/23 Reported Medications Pantoprazole Sodium Sesquihydr (Pantoprazole Sodium) 40 Mg Tab, 1 TAB PO DAILY 06/23/23 Donepezil Hydrochloride (DONEPEZIL HCL) 5 Mg Tab, 1 TAB PO DAILY 06/23/23 Clopidogrel Bisulfate (CLOPIDOGREL) 75 Mg Tab, 1 TAB PO DAILY 06/23/23 Glipizide (Glipizide Er) 2.5 Mg Tab, 1 TAB PO DAILY 06/23/23 Rosuvastatin Calcium (Rosuvastatin Calcium) 40 Mg Tab, 1 TAB PO DAILY 06/23/23 Information Source: Patient, Relative (Child) Mode of Arrival: Wheelchair Brought in by: wheelchair from discharge clinic Location: Left Extremity Location: Little Toe Timing: Days Severity: Moderate Able to Move Extremity: Yes Bear Weight: Fully Pain: Moderate, Severe Hand Dominance: Right Past Medical History Past Medical History (Other): Hypertension, multiple strokes, [id number] type 2 diabetes mellitus, dementia Surgical History: Denies all surgeries PET SITTER History: No Pertinent PET SITTER History Family History Family History: Reviewed,noncontributory to illness Social History Smoker: Non-Smoker Alcohol: Denies ETOH Use Drugs: Denies Drug Use Lives In: Home Constitutional: denies: chills, diaphoresis, fatigue, fever, malaise, sweats, weakness, others EENTM: denies: blurred vision, double vision, ear bleeding, ear discharge, ear drainage, ear pain, ear ringing, eye pain, eye redness, hearing loss, mouth pain, mouth swelling, nasal discharge, nose bleeding, nose congestion, nose allen n, photophobia, tearing, throat pain, throat swelling, voice changes, others Respiratory: denies: cough, hemoptysis, orthopnea, SOB at rest, shortness of breath, SOB with excertion, stridor, wheezing, others Cardiovascular: denies: chest pain, dizzy spells, diaphoresis, Dyspnea on exertion, edema, irregular heart beat, left arm pain, lightheadedness, palpitations, PND, syncope, others Gastrointestinal: denies: abdomen distended, abdominal pain, blood streaked bowels, constipated, diarrhea, dysphagia, difficulty swallowing, hematemesis, melena, nausea, poor appetite, poor fluid intake, rectal bleeding, rectal pain, vomiting, others Genitourinary: denies: abnormal vagina bleeding, burning, dyspareunia, dysuria, flank pain, frequency, hematuria, incontinence, pain, , vagina discharge, urgency, others Neurological: denies: dizziness, fainting, headache, left sided numbness, left sided weakness, numbness, paresthesia, pre-existing deficit, right sided numbness, right sided weakness, seizure, speech problems, tingling, tremors, weakness, others Musculoskeletal: denies: back pain, gout, joint pain, joint swelling, muscle pain, muscle stiffness, neck pain, others Integumetry: denies: bruises, change in color, change in hair/nails, dryness, laceration, lesions, lumps, rash, wounds, others Allergic/Immunocompromised: denies: Difficulty Healing, Frequent Infections, Hives, Itching, others Hematologic/Lymphatic: denies: anemia, blood clots, easy bleeding, easy bruising, swollen glands, others Endocrine: denies: excessive hunger, excessive sweating, excessive thirst, excessive urination, flushing, intolerance to cold, intolerance to heat, unexplained weight gain, unexplained weight loss, others Psychiatric: denies: anxiety, bipolar disorder, depression, hopeless, panic disorder, schizophrenia, sleepless, suicidal, others Physical Exam General Appearance: No Apparent Distress, Normal HEENT: Normal ENT Inspection, Pharynx Normal, TMs Normal Neck: Full Range of Motion, Non-Tender, Normal, Normal Inspection Respiratory: Chest Non-Tender, Lungs Clear, No Accessory Muscle Use, No Respiratory Distress, Normal Breath Sounds Cardiovascular: No Edema, No JVD, No Murmur, No Gallop, Normal Peripheral Pulses, Regular Rate/Rhythm Breast Exam: Deferred Gastrointestinal: No Organomegaly, Non Tender, No Pulsatile Mass, Normal Bowel Sounds, Soft Genitalia: Deferred Pelvic: Deferred Rectal: Deferred Extremities: No calf tenderness, Normal capillary refill, Normal inspection, Normal range of motion, No pedal edema, Tender (Left 5th toe tender and bluish d iscolored) Neurologic: Alert, government instructor II-XII nml as Tested, No Motor Deficits, Normal Affect, Normal Mood, No Sensory Deficits Cerebellar Function: Normal Reflexes: Normal Skin: Dry, Normal Color, Warm Peripheral Pulses: 2+ carotid (R), 2+ carotid (L), 2+ femoral (R), 2+ femoral (L), 2+ dorsalis pedis (R), 2+ dorsalis pedis (L), 2+ Radial (R), 2+ Radial (L) Lymphatic: No Adenopathy Was a procedure done? Was a procedure done?: No Differential Diagnosis EXT Differential Diagnosis: Other Other Differential Diagnosis Left 5th toe ischemia, fracture X-Ray, Labs, Meds, VS Vital Signs Date Time Temp Pulse Resp B/P (MAP) Pulse Ox O2 Delivery O2 Flow Rate FiO2 12/04/24 19:59 97.4 70 18 122/86 (98) 99 97.4 12/04/24 17:24 97.6 83 16 161/70 (100) 97 97.6 Lab Test 12/04/24 20:34 12/04/24 18:16 Range/Units Prothrombin Time Pending Prothrombin Time INR Pending Activated Partial Thromboplast Time Pending White Blood Count 7.1 4.4-10.8 10^3/uL Red Blood Count 4.80 4.0-5.20 10^6/uL Hemoglobin 15.5 12.2-16.2 g/dL Hematocrit 45.8 36.0-46.0 % Mean Corpuscular Volume 95.5 80.0-100.0 fL Mean Corpuscular Hemoglobin 32.4 H 28.0-32.0 pg Mean Corpuscular Hemoglobin Concent 33.9 32.0-36.0 g/dL Red Cell Distribution Width 14.4 H 11.8-14.3 % Platelet Count 272 140-450 10^3/uL Mean Platelet Volume 9.2 6.9-10.8 fL Neutrophils (%) (Auto) 67.0 37.0-80.0 % Lymphocytes (%) (Auto) 22.8 10.0-50.0 % Monocytes (%) (Auto) 7.8 0.0-12.0 % Eosinophils (%) (Auto) 1.7 0.0-7.0 % Basophils (%) (Auto) 0.7 0.0-2.0 % Neutrophils # (Auto) 4.7 1.6-8.6 10 ^3/uL Lymphocytes # (Auto) 1.6 0.4-5.4 10 ^3/uL Monocytes # (Auto) 0.6 0-1.3 10 ^3/uL Eosinophils # (Auto) 0.1 0-0.8 10 ^3/uL Basophils # (Auto) 0.1 0-0.2 10 ^3/uL Nucleated Red Blood Cells 0.1 % Sodium Level 145 136-145 mmol/L Potassium Level 4.8 3.5-5.1 mmol/L Chloride Level 112 H 98-107 mmol/L Carbon Dioxide Level 22 20-31 mmol/L Anion Gap 11 5-15 Blood Urea Nitrogen 23 9-23 mg/dL Creatinine 1.38 H 0.550-1.02 mg/dL Glomerular Filtration Rate Calc 39 >90 mL/min BUN/Creatinine Ratio 16.7 10.0-20.0 Serum Glucose 101 74-106 mg/dL Calcium Level 10.1 8.7-10.4 mg/dL Patient came to the ED with a chief complaint of left 5th toe bluish disco loration and pain for the last few days. She was recently discharged after from the hospital after she had acute pontine CVA and on the BECKY was seen to have anteroseptal shunt and was discharged home on Eliquis 2.5 mg b.i.d. which she was not able to fern picker from the pharmacy. Patient was seen to have mild MORIS on CKD. Bilateral lower extremity arterial duplex and left foot x-ray has been ordered. Patient will be admitted for further management, discussed with the patient and her daughter over the cough and they agreed. Time of 1ST Reevaluation: 19:41 Reevaluation 1ST: Unchanged Patient Education/Counseling: Diagnosis, Treatment, Prognosis Family Education/Counseling: Diagnosis, Treatment, Prognosis Departure 1 Departure Time of Disposition: 21:16 Impression: Primary Impression: Contusion of fifth toe, left Additional Impressions: Peripheral artery disease History of multiple cerebrovascular accidents (CVAs) Hypertension Non-insulin dependent diabetes mellitus Disposition: ADMITTED INPATIENT Condition: Fair Critical Care Note Critical Care Time?: No Stability Stability form required: No Heart Score Heart Score: Heart Score Response (Comments) Value History N/A 0 EKG N/A 0 Age >65 2 Risk Factors >3 or Hx ASHD 2 Troponin N/A 0 Total 4 EZEQUIEL AMRQUEZ RESIDENT Dec 04, 2024 18:28
[2024-12-04 18:39] LABS: Hematocrit 45.8 % (36.0-46.0); Hemoglobin 15.5 g/dL (12.2-16.2); Mean Corpuscular Hemoglobin 32.4 pg (28.0-32.0); Mean Corpuscular Volume 95.5 fL (80.0-100.0); Nucleated Red Blood Cells % 0.1 %
[2024-12-04 18:47] LABS: Potassium 4.8 mmol/L (3.5-5.1); Sodium 145 mmol/L (136-145)
[2024-12-04 18:48] LABS: Anion Gap 11 (5-15); Carbon Dioxide 22 mmol/L (20-31)
[2024-12-04 18:49] LABS: Calcium 10.1 mg/dL (8.7-10.4)
[2024-12-04 18:52] LABS: Chloride 112 mmol/L (98-107)
[2024-12-04 18:53] LABS: BUN/Creatinine Ratio 16.7 (10.0-20.0); Glucose 101 mg/dL (74-106)
[2024-12-04 18:54] LABS: Blood Urea Nitrogen 23 mg/dL (9-23)
[2024-12-04 20:56] LABS: INR 0.97 (0.9-1.15); Partial Thromboplastin Time 24.2 SEC (24.5-34.5); Prothrombin Time 10.3 sec (9.3-11.8)
--- NOTE | 2024-12-04 21:12 | DVH ---
CLINICAL INDICATION: left 5th toe pain and bluish discoloration TECHNIQUE: 2 radiographic views of the left foot were obtained. Comparison: None FINDINGS/IMPRESSION: There is subtle lucency with cortical step-off of the head of the 5th toe proximal phalanx. Recommen d correlation with point tenderness. Minimal density medial to the talus on the frontal view which ma y represent vascular calcification with small avulsed bony fragment of unknown chronicity not exclude d. No dislocation. Plantar calcaneal bony spur.
[2024-12-04] MEDS: ATORVASTATIN 20 MG TAB PO SCH (22:18)
[2024-12-04] MEDS: DONEPEZIL HYDROCHLORIDE 5 MG TAB PO SCH (22:18)
[2024-12-04] MEDS: CLOPIDOGREL BISULFATE 75 MG TAB PO ONE (22:19)
[2024-12-04] MEDS: APIXABAN 2.5 MG TAB PO SCH (22:37)
[2024-12-04 22:54] VITALS: PULSE 72; RESP 17; O2SAT 96
[2024-12-05] VITALS (7 sets, daily range): BP systolic 124–154; BP diastolic 71–99; PULSE 7–83; RESP 12–20; TEMP 97.3–98.4; O2SAT 93–100
[2024-12-05] MEDS ORDERED: ACETAMINOPHEN 325 MG TAB PO PRN
[2024-12-05] MEDS ORDERED: ONDANSETRON HCL 4 MG/2 ML VIAL IV PRN
--- NOTE | 2024-12-05 00:36 | DVH ---
Left Lower Extremity Arterial Duplex Clinical History: left 5th toe cyanosis Comparison: None Technique: Duplex Doppler evaluation including color Doppler and spectral/pulsed waveform analysis of the lower extremity arteries was performed. Findings: LEFT: Peak systolic velocities are as follows: TECHNICAL ASSISTANT 84 cm/s Deep femoral 50 cm/s SFA proximal 60 cm/s SFA mid-portion 44 cm/s SFA distal 34 cm/s Popliteal 56 cm/s Posterior tibial 17 cm/s with monophasic flow. Anterior tibial 45 cm/s with monophasic flow. Dorsalis pedis 34 cm/s with monophasic flow. The waveforms are predominantly triphasic throughout, however, monophasic flow is identified within t he posterior tibial, posterior tibial and dorsalis pedis arteries. IMPRESSION: 1. No hemodynamically significant stenosis based on peak systolic velocity criteria. 2. Monophasic flow identified within the anterior tibial, posterior tibial and dorsalis pedis arterie s. REFERENCE VALUES, [facility] ([facility]) vascular Imaging Lab Criteria: Peak systolic velocity ranges (in cm/sec) are as follows: <150 cm/s - <20 % stenosis 150-200 cm/s - 20-49% stenosis 200-300 cm/s - 50-75% stenosis >300 cm/s -> 75% stenosis
[2024-12-05] MEDS: hydrALAZINE HCL 20 MG/ML VL IV ONE (02:04)
[2024-12-05] MEDS: HYDROcodone-ACET 5/325MG TAB PO PRN (02:04)
--- NOTE | 2024-12-05 04:51 | DVHHP2 ---
History of Present Illness Reason for Visit: Toe discoloration History of Present Illness 79-year-old female presents for evaluation of toe discoloration. Patient reports a three day history of noting her left 5th toe turning purple and extremely painful. She also states is cool to the touch as compared to the rest of the toes. Denies any trauma to the area. Past Medical History Hypertension, CVA, dementia, AFib, diabetes mellitus Past Surgical History Denies Family History Noncontributory Smoke: No ALCOHOL: none Drugs: None Lives: with Family Review of Systems Review of Systems Review of systems are currently negative otherwise addressed in HPI. Allergies: Coded Allergies: NO KNOWN ALLERGIES (Unverified , 11/23/24) Medications Current Medications Medications Dose Ordered Sig/Tasia Route Start Time Stop Time Status Last Admin Dose Admin Apixaban 2.5 mg BID PO 12/04/24 22:00 12/04/24 22:37 2.5 MG Amlodipine Besylate 10 mg DAILY PO 12/05/24 10:00 Donepezil HCl 5 mg HS PO 12/04/24 22:00 12/04/24 22:18 5 MG Metoprolol Succinate 25 mg DAILY PO 12/05/24 10:00 Atorvastatin Calcium 40 mg HS PO 12/04/24 22:00 12/04/24 22:18 40 MG Acetaminophen/ Hydrocodone Bitart 1 tab Q4HP PRN PO 12/05/24 00:00 12/05/24 02:04 1 TAB Ondansetron HCl 4 mg Q4HP PRN IV 12/05/24 00:00 UNV Enoxaparin Sodium 40 mg DAILY SC 12/05/24 10:00 Acetaminophen 650 mg Q6HP PRN PO 12/05/24 00:00 Exam Vital Signs Vital Signs Date Time Temp Pulse Resp B/P (MAP) Pulse Ox O2 Delivery O2 Flow Rate FiO2 12/05/24 03:18 97.3 83 18 153/99 (117) 100 97.3 12/05/24 03:18 Room Air* 0 21 Exam Gen: 79-year-old female in mild distress. Skin: Warm, dry, normal color and texture, no rash. HEENT: Normocephalic atraumatic, mucous membranes moist and pink. Neck: Cervical and supraclavicular nodes normal without enlargement, trachea is midline, thyroid gland is normal without masses. Pulmonary: Clear to auscultation and percussion bilaterally. Cardiac: Regular rate and rhythm. No murmur Abdomen: Soft, nontender, nondistended, bowel sounds present all 4 quadrants, no guarding, no rigidity, no organomegaly. Extremities: No cyanosis, clubbing, left 5th toe discoloration Neuro: Cranial nerves II through XII grossly intact, normal affect and speech, no focal motor deficits. Labs/Xrays ORDERING PHYSICIAN: EZEQUIEL MARQUEZ RESIDENT PROCEDURE(s): LLEAD - Lt Low Ext Art Duplex REASON: left 5th toe cyanosis ORDER NUMBER(s): [id number], ACCESSION NUMBER(s): [id number] Left Lower Extremity Arterial Duplex Clinical History: left 5th toe cyanosis Comparison: None Technique: Duplex Doppler evaluation including color Doppler and spectral/pulsed waveform analysis of the lower extremity arteries was performed. Findings: LEFT: Peak systolic velocities are as follows: ENDOSCOPE TECHNICIAN 84 cm/s Deep femoral 50 cm/s SFA proximal 60 cm/s SFA mid-portion 44 cm/s SFA distal 34 cm/s Popliteal 56 cm/s Posterior tibial 17 cm/s with monophasic flow. Anterior tibial 45 cm/s with monophasic flow. Dorsalis pedis 34 cm/s with monophasic flow. The waveforms are predominantly triphasic throughout, however, monophasic flow is identified within the posterior tibial, posterior tibial and dorsalis pedis arteries. IMPRESSION: 1. No hemodynamically significant stenosis based on peak systolic velocity criteria. 2. Monophasic flow identified within the anterior tibial, posterior tibial and dorsalis pedis arteries. REFERENCE VALUES, [facility] ([facility]) vascular Imaging Lab Criteria: Peak systolic velocity ranges (in cm/sec) are as follows: <150 cm/s - <20 % stenosis 150-200 cm/s - 20-49% stenosis 200-300 cm/s - 50-75% stenosis >300 cm/s -> 75% stenosis ATED BY: ARMOND VELARDE MD DICTATED DATE/TIME: 12/05/2432 SIGNED BY: ARMOND VELARDE MD SIGNED DATE/TIME: 12/05/2432 CC: ORDERING PHYSICIAN: EZEQUIEL MARQUEZ RESIDENT PROCEDURE(s): LFOT2 - L FOOT 2 VIEW XRAY REASON: left 5th toe pain and bluish discoloration ORDER NUMBER(s): [id number], ACCESSION NUMBER(s): [id number] CLINICAL INDICATION: left 5th toe pain and bluish discoloration TECHNIQUE: 2 radiographic views of the left foot were obtained. Comparison: None FINDINGS/IMPRESSION: There is subtle lucency with cortical step-off of the head of the 5th toe proximal phalanx. Recommend correlation with point tenderness. Minimal density medial to the talus on the frontal view which may represent vascular calcification with small avulsed bony fragment of unknown chronicity not excluded. No dislocation. Plantar calcaneal bony spur. Labs Test 12/04/24 20:34 12/04/24 18:16 Range/Units Prothrombin Time 10.3 9.3-11.8 sec Prothrombin Time INR 0.97 0.9-1.15 Activated Partial Thromboplast Time 24.2 L 24.5-34.5 SEC White Blood Count 7.1 4.4-10.8 10^3/uL Red Blood Count 4.80 4.0-5.20 10^6/uL Hemoglobin 15.5 12.2-16.2 g/dL Hematocrit 45.8 36.0-46.0 % Mean Corpuscular Volume 95.5 80.0-100.0 fL Mean Corpuscular Hemoglobin 32.4 H 28.0-32.0 pg Mean Corpuscular Hemoglobin Concent 33.9 32.0-36.0 g/dL Red Cell Distribution Width 14.4 H 11.8-14.3 % Platelet Count 272 140-450 10^3/uL Mean Platelet Volume 9.2 6.9-10.8 fL Neutrophils (%) (Auto) 67.0 37.0-80.0 % Lymphocytes (%) (Auto) 22.8 10.0-50.0 % Monocytes (%) (Auto) 7.8 0.0-12.0 % Eosinophils (%) (Auto) 1.7 0.0-7.0 % Basophils (%) (Auto) 0.7 0.0-2.0 % Neutrophils # (Auto) 4.7 1.6-8.6 10 ^3/uL Lymphocytes # (Auto) 1.6 0.4-5.4 10 ^3/uL Monocytes # (Auto) 0.6 0-1.3 10 ^3/uL Eosinophils # (Auto) 0.1 0-0.8 10 ^3/uL Basophils # (Auto) 0.1 0-0.2 10 ^3/uL Nucleated Red Blood Cells 0.1 % Sodium Level 145 136-145 mmol/L Potassium Level 4.8 3.5-5.1 mmol/L Chloride Level 112 H 98-107 mmol/L Carbon Dioxide Level 22 20-31 mmol/L Anion Gap 11 5-15 Blood Urea Nitrogen 23 9-23 mg/dL Creatinine 1.38 H 0.550-1.02 mg/dL Glomerular Filtration Rate Calc 39 >90 mL/min BUN/Creatinine Ratio 16.7 10.0-20.0 Serum Glucose 101 74-106 mg/dL Calcium Level 10.1 8.7-10.4 mg/dL Assessment/Plan Assessment/Plan Assessment ? Left 5th toe ischemia Diabetes mellitus History of CVA Acute kidney injury Plan Admit the patient to [facility] to the hospitalist Podiatry consult Vascular consult Resume home medications Continue treatment per orders Plan discussed with: Patient My Orders Orders - MANUEL OGDEN AGACNP Procedure Category Date Status Time Apixaban (Eliquis) PHA 12/04/24 In Process 22:00 Amlodipine Tablet PHA 12/05/24 In Process (Norvasc Tablet) 10:00 Donepezil Tablet PHA 12/04/24 In Process (Aricept Tablet) 22:00 Metoprolol Xl PHA 12/05/24 In Process Succinate (Toprol Xl) 10:00 Atorvastatin (Lipitor) PHA 12/04/24 In Process 22:00 Urinalysis LAB 12/04/24 Logged 21:34 Admit ADMIT 12/04/24 Transmitted 23:51 *Podiatry Consult CONS 12/04/24 Transmitted Andres(Dvmg) 23:52 Basic Metabolic Panel LAB 12/05/24 Logged 04:00 Hydrocodone-Acet PHA 12/05/24 In Process 5/325mg Tab (Machipongo 00:00 Ondansetron Hcl PHA 12/05/24 Pending (Zofran) 00:00 Enoxaparin Sodium PHA 12/05/24 In Process (Lovenox) 10:00 Complete Blood Count LAB 12/05/24 Logged 04:00 Cardiac DIET 12/05/24 Transmitted Diet-2gna,Lofat,Lochol Breakfast Condition: Stable NABIL 12/04/24 In Process 23:52 Acetaminophen Tablet PHA 12/05/24 In Process (Tylenol Tablet) 00:00 Bedrest With Bathroom NABIL 12/04/24 In Process Privileg 23:52 Mrsa Screen ASHLEY 12/05/24 In Process 03:40 Date of Service: Dec 04, 2024 Billing Provider: MANUEL OGDEN Common Visit Codes: [id number] INP/OBS CARE (MOD) MANUEL OGDEN Dec 05, 2024 04:51
[2024-12-05] MEDS ORDERED: APIXABAN 2.5 MG TAB PO SCH (05:00)
[2024-12-05 05:53] LABS: Hematocrit 43.9 % (36.0-46.0); Hemoglobin 14.8 g/dL (12.2-16.2); Mean Corpuscular Hemoglobin 32.2 pg (28.0-32.0); Mean Corpuscular Volume 95.5 fL (80.0-100.0); Nucleated Red Blood Cells % 0.2 %
[2024-12-05 06:03] LABS: Anion Gap 13 (5-15); Calcium 10.4 mg/dL (8.7-10.4); Carbon Dioxide 22 mmol/L (20-31)
[2024-12-05 06:04] LABS: Chloride 111 mmol/L (98-107); Potassium 3.5 mmol/L (3.5-5.1); Sodium 146 mmol/L (136-145)
[2024-12-05 06:09] LABS: BUN/Creatinine Ratio 19.7 (10.0-20.0)
[2024-12-05 06:20] LABS: Blood Urea Nitrogen 26 mg/dL (9-23); Glucose 149 mg/dL (74-106)
[2024-12-05] MEDS: METOPROLOL SUCCINATE XL 50 MG TAB PO SCH (09:59)
[2024-12-05] MEDS: CLOPIDOGREL BISULFATE 75 MG TAB PO SCH (10:00)
[2024-12-05] MEDS: ENOXAPARIN SOD 40 MG/0.4 ML SYRINGE SC SCH (10:00)
--- NOTE | 2024-12-05 13:34 | DVHCONRES ---
Date Seen: Dec 05, 2024 Resident Creating Document: MICHELLE CAMPBELL Jr., MD Referring Physician er Reason for Consultation left 5 toe ischemia History of Present Illness 79-year-old female presents for evaluation of toe discoloration. Patient reports a three day history of noting her left 5th toe turning purple and extremely painful. She also states is cool to the touch as compared to the rest of the toes. Denies any trauma to the area. Past Medical History Hypertension, CVA, dementia, AFib, diabetes mellitus Past Surgical History None Family History: Asthma G8 MOTHER FH: dementia G8 MOTHER G8 SISTER Social History Nonsmoker nondrinker Allergies: Coded Allergies: NO KNOWN ALLERGIES (Unverified , 11/23/24) Home Meds Active Scripts Apixaban Base (ELIQUIS) 2.5 Mg Tab, 2.5 MG PO BID for 30 Days, #60 TAB Prov:RY ANAYA OLIVE GROWER 11/24/24 Amlodipine Besylate (Amlodipine Besylate) 10 Mg Tab, 1 TAB PO DAILY for 60 Days, #60 TAB Prov:RY ANAYA OLIVE GROWER 06/23/23 Metoprolol Succinate (Metoprolol Succinate Er) 25 Mg Tab, 1 TAB PO DAILY for 60 Days, #60 TAB Prov:RY ANAYA OLIVE GROWER 06/23/23 Reported Medications Pantoprazole Sodium Sesquihydr (Pantoprazole Sodium) 40 Mg Tab, 1 TAB PO DAILY 06/23/23 Donepezil Hydrochloride (DONEPEZIL HCL) 5 Mg Tab, 1 TAB PO DAILY 06/23/23 Clopidogrel Bisulfate (CLOPIDOGREL) 75 Mg Tab, 1 TAB PO DAILY 06/23/23 Glipizide (Glipizide Er) 2.5 Mg Tab, 1 TAB PO DAILY 06/23/23 Rosuvastatin Calcium (Rosuvastatin Calcium) 40 Mg Tab, 1 TAB PO DAILY 06/23/23 Current Medications Current Medications Medications (Trade) Dose Ordered Sig/Tasia Route PRN Reason Start Time Stop Time Status Last Admin Apixaban (Eliquis) 2.5 mg BID PO 12/04/24 22:00 12/05/24 04:52 DC 12/04/24 22:37 Amlodipine Besylate (Norvasc Tablet) 10 mg DAILY PO 12/05/24 10:00 12/05/24 09:59 Donepezil HCl (Aricept Tablet) 5 mg HS PO 12/04/24 22:00 12/04/24 22:18 Metoprolol Succinate (Toprol Xl) 25 mg DAILY PO 12/05/24 10:00 12/05/24 09:59 Atorvastatin Calcium (Lipitor) 40 mg HS PO 12/04/24 22:00 12/04/24 22:18 Acetaminophen/ Hydrocodone Bitart ([place] 5/325MG Tab) 1 tab Q4HP PRN PO MODERATE PAIN (4-6 PAIN SCALE) 12/05/24 00:00 12/05/24 02:04 Ondansetron HCl (Zofran) 4 mg Q4HP PRN IV NAUSEA / VOMITING 12/05/24 00:00 Enoxaparin Sodium (Lovenox) 40 mg DAILY SC 12/05/24 10:00 Acetaminophen (Tylenol Tablet) 650 mg Q6HP PRN PO PAIN SCALE 1-3 OR TEMP>100.4 12/05/24 00:00 Clopidogrel Bisulfate (Plavix) 75 mg DAILY PO 12/05/24 10:00 Apixaban (Eliquis) 5 mg BID PO 12/05/24 05:00 Hold Review of Systems All systems reviewed otherwise negative other once in HPI. Vital Signs Vital Signs Date Time Temp Pulse Resp B/P (MAP) Pulse Ox O2 Delivery O2 Flow Rate FiO2 12/05/24 09:59 77 154/80 12/05/24 09:00 97.9 12 96 97.9 12/05/24 08:00 Room Air* 0 21 Physical Exam Head eyes ears nose and throat exam eyes are nonicteric conjunctiva is pink neck was supple no JVD no lymphadenopathy no carotid bruits lungs are clear to auscultation heart was regular rate and rhythm abdomen is soft nontender with no pulsatile abdominal mass or bruits lower extremities palpable femoral and pedal pulses bilaterally. She does have a ischemic changes of the left 5th toe. With bluish discoloration and tender to the touch. Labs/Diagnostic Data Labs Test 12/05/24 05:18 12/04/24 20:34 Range/Units White Blood Count 6.2 4.4-10.8 10^3/uL Red Blood Count 4.60 4.0-5.20 10^6/uL Hemoglobin 14.8 12.2-16.2 g/dL Hematocrit 43.9 36.0-46.0 % Mean Corpuscular Volume 95.5 80.0-100.0 fL Mean Corpuscular Hemoglobin 32.2 H 28.0-32.0 pg Mean Corpuscular Hemoglobin Concent 33.7 32.0-36.0 g/dL Red Cell Distribution Width 14.7 H 11.8-14.3 % Platelet Count 270 140-450 10^3/uL Mean Platelet Volume 8.8 6.9-10.8 fL Neutrophils (%) (Auto) 71.9 37.0-80.0 % Lymphocytes (%) (Auto) 16.4 10.0-50.0 % Monocytes (%) (Auto) 8.8 0.0-12.0 % Eosinophils (%) (Auto) 2.4 0.0-7.0 % Basophils (%) (Auto) 0.5 0.0-2.0 % Neutrophils # (Auto) 4.5 1.6-8.6 10 ^3/uL Lymphocytes # (Auto) 1.0 0.4-5.4 10 ^3/uL Monocytes # (Auto) 0.5 0-1.3 10 ^3/uL Eosinophils # (Auto) 0.2 0-0.8 10 ^3/uL Basophils # (Auto) 0 0-0.2 10 ^3/uL Nucleated Red Blood Cells 0.2 % Sodium Level 146 H 136-145 mmol/L Potassium Level 3.5 3.5-5.1 mmol/L Chloride Level 111 H 98-107 mmol/L Carbon Dioxide Level 22 20-31 mmol/L Anion Gap 13 5-15 Blood Urea Nitrogen 26 H 9-23 mg/dL Creatinine 1.32 H 0.550-1.02 mg/dL Glomerular Filtration Rate Calc 41 >90 mL/min BUN/Creatinine Ratio 19.7 10.0-20.0 Serum Glucose 149 H 74-106 mg/dL Calcium Level 10.4 8.7-10.4 mg/dL Prothrombin Time 10.3 9.3-11.8 sec Prothrombin Time INR 0.97 0.9-1.15 Activated Partial Thromboplast Time 24.2 L 24.5-34.5 SEC Microbiology Date/Time Source Procedure Growth Status 12/05/24 03:10 Nose MRSA Screen - Final Complete Left Lower Extremity Arterial Duplex Clinical History: left 5th toe cyanosis Comparison: None Technique: Duplex Doppler evaluation including color Doppler and spectral/pulsed waveform analysis of the lower extremity arteries was performed. Findings: LEFT: Peak systolic velocities are as follows: TRAVELING PHLEBOTOMIST 84 cm/s Deep femoral 50 cm/s SFA proximal 60 cm/s SFA mid-portion 44 cm/s SFA distal 34 cm/s Popliteal 56 cm/s Posterior tibial 17 cm/s with monophasic flow. Anterior tibial 45 cm/s with monophasic flow. Dorsalis pedis 34 cm/s with monophasic flow. The waveforms are predominantly triphasic throughout, however, monophasic flow is identified within the posterior tibial, posterior tibial and dorsalis pedis arteries. IMPRESSION: 1. No hemodynamically significant stenosis based on peak systolic velocity criteria. 2. Monophasic flow identified within the anterior tibial, posterior tibial and dorsalis pedis arteries. Assessment Left 5th toe ischemic Normal vascular exam probable cause is atrial fibrillation. Would recommend cardiac workup. At this time no surgical intervention. Continue with anti coagulation. Plan discussed with: Patient MICHELLE CAMPBELL Jr., MD Dec 05, 2024 13:34
--- NOTE | 2024-12-05 15:11 | DVHINCON2 ---
Date Seen: Dec 05, 2024 Reason for Consultation Left foot ischemia History of Present Illness 79-year-old female presents for evaluation of toe discoloration. Patient reports a three day history of noting her left 5th toe turning purple and extremely painful. She also states is cool to the touch as compared to the rest of the toes. Denies any trauma to the area. Past Medical History See H&P Past Surgical History See H&P Family History: Asthma G8 MOTHER FH: dementia G8 MOTHER G8 SISTER Allergies: Coded Allergies: NO KNOWN ALLERGIES (Unverified , 11/23/24) Home Meds Active Scripts Apixaban Base (ELIQUIS) 2.5 Mg Tab, 2.5 MG PO BID for 30 Days, #60 TAB Prov:RY ANAYA SECURITY SYSTEMS MANAGER 11/24/24 Amlodipine Besylate (Amlodipine Besylate) 10 Mg Tab, 1 TAB PO DAILY for 60 Days, #60 TAB Prov:RY ANAYA SECURITY SYSTEMS MANAGER 06/23/23 Metoprolol Succinate (Metoprolol Succinate Er) 25 Mg Tab, 1 TAB PO DAILY for 60 Days, #60 TAB Prov:RY ANAYA SECURITY SYSTEMS MANAGER 06/23/23 Reported Medications Pantoprazole Sodium Sesquihydr (Pantoprazole Sodium) 40 Mg Tab, 1 TAB PO DAILY 06/23/23 Donepezil Hydrochloride (DONEPEZIL HCL) 5 Mg Tab, 1 TAB PO DAILY 06/23/23 Clopidogrel Bisulfate (CLOPIDOGREL) 75 Mg Tab, 1 TAB PO DAILY 06/23/23 Glipizide (Glipizide Er) 2.5 Mg Tab, 1 TAB PO DAILY 06/23/23 Rosuvastatin Calcium (Rosuvastatin Calcium) 40 Mg Tab, 1 TAB PO DAILY 06/23/23 Current Medications Current Medications Medications (Trade) Dose Ordered Sig/Tasia Route PRN Reason Start Time Stop Time Status Last Admin Apixaban (Eliquis) 2.5 mg BID PO 12/04/24 22:00 12/05/24 04:52 DC 12/04/24 22:37 Amlodipine Besylate (Norvasc Tablet) 10 mg DAILY PO 12/05/24 10:00 12/05/24 09:59 Donepezil HCl (Aricept Tablet) 5 mg HS PO 12/04/24 22:00 12/04/24 22:18 Metoprolol Succinate (Toprol Xl) 25 mg DAILY PO 12/05/24 10:00 12/05/24 09:59 Atorvastatin Calcium (Lipitor) 40 mg HS PO 12/04/24 22:00 12/04/24 22:18 Acetaminophen/ Hydrocodone Bitart ([place] 5/325MG Tab) 1 tab Q4HP PRN PO MODERATE PAIN (4-6 PAIN SCALE) 12/05/24 00:00 12/05/24 02:04 Ondansetron HCl (Zofran) 4 mg Q4HP PRN IV NAUSEA / VOMITING 12/05/24 00:00 Enoxaparin Sodium (Lovenox) 40 mg DAILY SC 12/05/24 10:00 Acetaminophen (Tylenol Tablet) 650 mg Q6HP PRN PO PAIN SCALE 1-3 OR TEMP>100.4 12/05/24 00:00 Clopidogrel Bisulfate (Plavix) 75 mg DAILY PO 12/05/24 10:00 Apixaban (Eliquis) 5 mg BID PO 12/05/24 05:00 Hold Vital Signs Vital Signs Date Time Temp Pulse Resp B/P (MAP) Pulse Ox O2 Delivery O2 Flow Rate FiO2 12/05/24 13:00 98.2 58 15 145/71 (95) 93 98.2 12/05/24 08:00 Room Air* 0 21 Physical Exam Dermatological: Skin is dry with mild erythema and some maceration around the wound site No gross deformities noted Mild non-pitting edema present bilaterally Ischemia left 5th digit Vascular: Dorsalis pedis and posterior tibial pulses are 1+ bilaterally Capillary refill is under 2 seconds Skin temperature is warm bilaterally Neurologic: Protective sensation is absent on the plantar forefoot bilaterally Monofilament testing reveals decreased sensation in multiple plantar sites Musculoskeletal: Range of motion at the ankle and MTP joints is within normal limits. Strength is 5/5 in all tested muscle groups. Gait is antalgic due to offloading of the affected limb. Labs/Diagnostic Data Labs Test 12/05/24 05:18 12/04/24 20:34 Range/Units White Blood Count 6.2 4.4-10.8 10^3/uL Red Blood Count 4.60 4.0-5.20 10^6/uL Hemoglobin 14.8 12.2-16.2 g/dL Hematocrit 43.9 36.0-46.0 % Mean Corpuscular Volume 95.5 80.0-100.0 fL Mean Corpuscular Hemoglobin 32.2 H 28.0-32.0 pg Mean Corpuscular Hemoglobin Concent 33.7 32.0-36.0 g/dL Red Cell Distribution Width 14.7 H 11.8-14.3 % Platelet Count 270 140-450 10^3/uL Mean Platelet Volume 8.8 6.9-10.8 fL Neutrophils (%) (Auto) 71.9 37.0-80.0 % Lymphocytes (%) (Auto) 16.4 10.0-50.0 % Monocytes (%) (Auto) 8.8 0.0-12.0 % Eosinophils (%) (Auto) 2.4 0.0-7.0 % Basophils (%) (Auto) 0.5 0.0-2.0 % Neutrophils # (Auto) 4.5 1.6-8.6 10 ^3/uL Lymphocytes # (Auto) 1.0 0.4-5.4 10 ^3/uL Monocytes # (Auto) 0.5 0-1.3 10 ^3/uL Eosinophils # (Auto) 0.2 0-0.8 10 ^3/uL Basophils # (Auto) 0 0-0.2 10 ^3/uL Nucleated Red Blood Cells 0.2 % Sodium Level 146 H 136-145 mmol/L Potassium Level 3.5 3.5-5.1 mmol/L Chloride Level 111 H 98-107 mmol/L Carbon Dioxide Level 22 20-31 mmol/L Anion Gap 13 5-15 Blood Urea Nitrogen 26 H 9-23 mg/dL Creatinine 1.32 H 0.550-1.02 mg/dL Glomerular Filtration Rate Calc 41 >90 mL/min BUN/Creatinine Ratio 19.7 10.0-20.0 Serum Glucose 149 H 74-106 mg/dL Calcium Level 10.4 8.7-10.4 mg/dL Prothrombin Time 10.3 9.3-11.8 sec Prothrombin Time INR 0.97 0.9-1.15 Activated Partial Thromboplast Time 24.2 L 24.5-34.5 SEC Microbiology Date/Time Source Procedure Growth Status 12/05/24 03:10 Nose MRSA Screen - Final Complete Problems(with codes): (1) TIA (transient ischemic attack) (2) Dysphagia (3) Hypertensive urgency (4) CVA (cerebral vascular accident) (5) Non-insulin dependent diabetes mellitus (6) Hypertension (7) Peripheral artery disease (8) Contusion of fifth toe, left (9) History of multiple cerebrovascular accidents (CVAs) Plan/Recommendation ASSESSMENT: Patient is a 79-year-old seen on the floor for ischemic toe PLAN: - The patients chart was reviewed, clinical findings were discussed with the patient, the etiologies of the conditions were discussed in detail, and a treatment plan was agreed to at this time, with both oral and written instructions provided. - reviewed advanced imaging - recommend she sees vascular surgery to determine if intervention required -continue to watch the toe as it demarcate - can be discharged home no surgical intervention required at this point All questions were answered and concerns addressed to the patient's sat isfaction. The patient was given the phone number to the clinic and was told how to make contact with the clinic should any concerns or questions arise. Patient understands that if any questions or concerns arise prior to the next appointment, we should be contacted immediately. FOLLOW-UP: Continue to follow while inpatient Plan discussed with: Patient Date of Service: Dec 05, 2024 Billing Provider: ASHISH CRUZ DPM Common Visit Codes: CONSULT ONLY Consultation Codes: [id number] CONSULT <80MIN ASHISH CRUZ DPM Dec 05, 2024 15:11
--- NOTE | 2024-12-05 18:06 | DVHDS2 ---
Discharge Summary Date of Admission Dec 04, 2024 at 23:51 Date of Discharge: Dec 05, 2024 Labs/Diagnostic Data: Laboratory Results Test 12/05/24 05:18 12/04/24 20:34 White Blood Count 6.2 10^3/uL (4.4-10.8) Red Blood Count 4.60 10^6/uL (4.0-5.20) Hemoglobin 14.8 g/dL (12.2-16.2) Hematocrit 43.9 % (36.0-46.0) Mean Corpuscular Volume 95.5 fL (80.0-100.0) Mean Corpuscular Hemoglobin 32.2 pg (28.0-32.0) Mean Corpuscular Hemoglobin Concent 33.7 g/dL (32.0-36.0) Red Cell Distribution Width 14.7 % (11.8-14.3) Platelet Count 270 10^3/uL (140-450) Mean Platelet Volume 8.8 fL (6.9-10.8) Neutrophils (%) (Auto) 71.9 % (37.0-80.0) Lymphocytes (%) (Auto) 16.4 % (10.0-50.0) Monocytes (%) (Auto) 8.8 % (0.0-12.0) Eosinophils (%) (Auto) 2.4 % (0.0-7.0) Basophils (%) (Auto) 0.5 % (0.0-2.0) Neutrophils # (Auto) 4.5 10 ^3/uL (1.6-8.6) Lymphocytes # (Auto) 1.0 10 ^3/uL (0.4-5.4) Monocytes # (Auto) 0.5 10 ^3/uL (0-1.3) Eosinophils # (Auto) 0.2 10 ^3/uL (0-0.8) Basophils # (Auto) 0 10 ^3/uL (0-0.2) Nucleated Red Blood Cells 0.2 % Sodium Level 146 mmol/L (136-145) Potassium Level 3.5 mmol/L (3.5-5.1) Chloride Level 111 mmol/L (98-107) Carbon Dioxide Level 22 mmol/L (20-31) Anion Gap 13 (5-15) Blood Urea Nitrogen 26 mg/dL (9-23) Creatinine 1.32 mg/dL (0.550-1.02) Glomerular Filtration Rate Calc 41 mL/min (>90) BUN/Creatinine Ratio 19.7 (10.0-20.0) Serum Glucose 149 mg/dL (74-106) Calcium Level 10.4 mg/dL (8.7-10.4) Prothrombin Time 10.3 sec (9.3-11.8) Prothrombin Time INR 0.97 (0.9-1.15) Activated Partial Thromboplast Time 24.2 SEC (24.5-34.5) Other Laboratory Tests 12/05/24 05:18 Brief Hx & Hospital Course: 79-year-old female presents for evaluation of toe discoloration. Patient reports a three day history of noting her left 5th toe turning purple and extremely painful. Patient was seen in vascular surgery, no intervention at this time. Can be discharged home Condition at Discharge: Stable Final Diagnosis/Problems List ? Left 5th toe ischemia- RULED OUT Diabetes mellitus History of CVA Acute kidney injury Discharge Disposition: Home Discharge Instruct/Medications Diet: Consistent carbohydrate Activity: Light activity Follow Up/Referral: Dr. Campos in 1 week Medications: resume home meds Scheduled Amlodipine Besylate (Amlodipine Besylate), 1 TAB PO DAILY Apixaban Base (Eliquis), 2.5 MG PO BID Clopidogrel Bisulfate (Clopidogrel), 1 TAB PO DAILY, (Reported) Donepezil Hydrochloride (Donepezil Hcl), 1 TAB PO DAILY, (Reported) Glipizide (Glipizide Er), 1 TAB PO DAILY, (Reported) Metoprolol Succinate (Metoprolol Succinate Er), 1 TAB PO DAILY Pantoprazole Sodium Sesquihydr (Pantoprazole Sodium), 1 TAB PO DAILY, (Reported) Rosuvastatin Calcium (Rosuvastatin Calcium), 1 TAB PO DAILY, (Reported) Discharge Statement: "Patient was advised to return to the ER or call 911 if any headaches, dizziness, shortness of breath, chest pain, abdominal pain, bleeding, fevers, or worsening of medical condition. Patient was counseled about treatment plan, medications, possible side effects, patientverbalized understanding. All questions were answered to the best of my ability. This discharge took greater then 30 minutes in planning, reviewing documentation, counseling the patient, and discussing with other team members." ASSESSMENT ASSESSMENT Assessment Date of Service: Dec 05, 2024 Billing Provider: VIKTORIYA QUINTANILLA MD Common Visit Codes: [id number] DISCH DAY <30MIN VIKTORIYA QUINTANILLA MD Dec 05, 2024 18:06
== END 2024-12-05 21:00 | disposition home or self-care (01) | DRG 556 ==
LOC: ER 16:52 → OVERFLOW 23:51 → EAST 12-05 03:17
PROVIDERS: ADMIT Internal Medicine; ATTEND Internal Medicine
DX: M79.675 Pain in left toe(s) (principal); N17.9 Acute kidney failure, unspecified; S90.122A Contusion of left lesser toe(s) without damage to nail, initial encounter; E11.51 Type 2 diabetes mellitus with diabetic peripheral angiopathy without gangrene; I10 Essential (primary) hypertension; I48.91 Unspecified atrial fibrillation; Z82.5 Family history of asthma and other chronic lower respiratory diseases; Z86.73 Personal history of transient ischemic attack (TIA), and cerebral infarction without residual deficits; Z79.84 Long term (current) use of oral hypoglycemic drugs; Y99.8 Other external cause status; X58.XXXA Exposure to other specified factors, initial encounter; Y93.89 Activity, other specified; Y92.89 Other specified places as the place of occurrence of the external cause; Z81.8 Family history of other mental and behavioral disorders; Z79.899 Other long term (current) drug therapy
CPT/HCPCS: 36415; 73620; 80048; 85025; 85610; 85730; 87081; 93926; G0378

== ENCOUNTER 2024-12-15 15:10 | Emergency (ER) | payer OTHER, MEDICAID ==
[~2024-12-15] VITALS: Ht 157.5 cm; Wt 65.9 kg
--- NOTE | 2024-12-15 19:42 | DVH ---
CLINICAL INDICATION: pinky toe injury TECHNIQUE: 3 radiographic views of the left foot were obtained. Comparison: XY L FOOT 2 VIEW XRAY on DOS: 12/04/24 FINDINGS/IMPRESSION: Small calcifications are noted medial to the talus. No prior studies for comparison. Correlate clini renata for tenderness in this area. Plantar calcaneal enthesophyte. There is no fracture dislocation of the left 5th toe.
--- NOTE | 2024-12-15 21:45 | DVH ---
EXAM: CT CT L FOOT WO CONTRAST HISTORY: left foot ecchymosis no injury COMPARISON: None TECHNIQUE: Noncontrast axial CT images of the left foot were performed. Sagittal and coronal reformat leonel images were obtained. This CT exam was performed using one or more of the following dose reductio n techniques: Automated exposure control, adjustment of the mA and/or kv according to patient size, o r the use of iterative reconstruction techniques. Radiation Dose Information: CT Dose: CTDI volume is 7.75 mGy. Dose-length product is 198.68 mGy*cm FINDINGS: There is no acute displaced fracture. There are degenerative changes about the foot characterized by joint space narrowing. Small nonspecific plantar calcifications and Achilles calcifications are see n. There is nonspecific mild subcutaneous stranding and infiltration. IMPRESSION: 1. No acute fracture of the left foot. 2. Nonspecific subcutaneous swelling and infiltration, an element of cellulitis cannot be excluded in the appropriate clinical setting.
--- NOTE | 2024-12-16 00:23 | ED.PDOC ---
Musculoskeletal HPI Comments Pt presents to the ER with C/O of lft foot pinky toe pain. Pt states over the course of 3 days her toe has been getting discolored and painful. Pt denies trauma/ injury. Pt noted to have discoloration to lft pinky toe and side of foot. CSM intact Chief Complaint: Lower Extremity Time Seen by MD: 17:53 Primary Care Provider: ELMER Holt Notes: Nurses Notes, Medications, Allergies Allergies: Coded Allergies: NO KNOWN ALLERGIES (Unverified , 11/23/24) Home Meds Active Scripts Apixaban Base (ELIQUIS) 2.5 Mg Tab, 2.5 MG PO BID for 30 Days, #60 TAB Prov:RY ANAYA STOCK DRIVER 11/24/24 Amlodipine Besylate (Amlodipine Besylate) 10 Mg Tab, 1 TAB PO DAILY for 60 Days, #60 TAB Prov:RY ANAYA STOCK DRIVER 06/23/23 Metoprolol Succinate (Metoprolol Succinate Er) 25 Mg Tab, 1 TAB PO DAILY for 60 Days, #60 TAB Prov:RY ANAYA STOCK DRIVER 06/23/23 Reported Medications Pantoprazole Sodium Sesquihydr (Pantoprazole Sodium) 40 Mg Tab, 1 TAB PO DAILY 06/23/23 Donepezil Hydrochloride (DONEPEZIL HCL) 5 Mg Tab, 1 TAB PO DAILY 06/23/23 Clopidogrel Bisulfate (CLOPIDOGREL) 75 Mg Tab, 1 TAB PO DAILY 06/23/23 Glipizide (Glipizide Er) 2.5 Mg Tab, 1 TAB PO DAILY 06/23/23 Rosuvastatin Calcium (Rosuvastatin Calcium) 40 Mg Tab, 1 TAB PO DAILY 06/23/23 Mode of Arrival: Wheelchair Past Medical History Surgical History: Denies all surgeries WASHING TUB OPERATOR History: No Pertinent WASHING TUB OPERATOR History Family History Family History: Reviewed,noncontributory to illness Social History Smoker: Non-Smoker Alcohol: Denies ETOH Use Drugs: Denies Drug Use Lives In: Home Constitutional: denies: chills, diaphoresis, fatigue, fever, malaise, sweats, weakness, others EENTM: denies: blurred vision, double vision, ear bleeding, ear discharge, ear drainage, ear pain, ear ringing, eye pain, eye redness, hearing loss, mouth pain, mouth swelling, nasal discharge, nose bleeding, nose congestion, nose pain, photophobia, tearing, throat pain, throat swelling, voice changes, others Respiratory: denies: cough, hemoptysis, orthopnea, SOB at rest, shortness of breath, SOB with excertion, stridor, wheezing, others Cardiovascular: denies: chest pain, dizzy spells, diaphoresis, Dyspnea on exertion, edema, irregular heart beat, left arm pain, lightheadedness, palpitations, PND, syncope, others Gastrointestinal: denies: abdomen distended, abdominal pain, blood streaked bowels, constipated, diarrhea, dysphagia, difficulty swallowing, hematemesis, melena, nausea, poor appetite, poor fluid intake, rectal bleeding, rectal pain, vomiting, others Genitourinary: denies: abnormal vagina bleeding, burning, dyspareunia, dysuria, flank pain, frequency, hematuria, incontinence, pain, , vagina discharge, urgency, others Neurological: denies: dizziness, fainting, headache, left sided numbness, left sided weakness, numbness, paresthesia, pre-existing deficit, right sided numbness, right sided weakness, seizure, speech problems, tingling, tremors, weakness, others Musculoskeletal: denies: back pain, gout, joint pain, joint swelling, muscle pain, muscle stiffness, neck pain, others Integumetry: reports: change in color; denies: bruises, change in hair/nails, dryness, laceration, lesions, lumps, rash, wounds, others Allergic/Immunocompromised: denies: Difficulty Healing, Frequent Infections, Hives, Itching, others Hematologic/Lymphatic: denies: anemia, blood clots, easy bleeding, easy bruising, swollen glands, others Endocrine: denies: excessive hunger, excessive sweating, excessive thirst, excessive urination, flushing, intolerance to cold, intolerance to heat, unexplained weight gain, unexplained weight loss, others Psychiatric: denies: anxiety, bipolar disorder, depression, hopeless, panic disorder, schizophrenia, sleepless, suicidal, others Physical Exam General Appearance: No Apparent Distress, Normal HEENT: Pharynx Normal Neck: Full Range of Motion, Non-Tender Respiratory: Lungs Clear, No Respiratory Distress, Normal Breath Sounds Cardiovascular: No Edema, No JVD, No Murmur, No Gallop, Normal Peripheral Pulses, Regular Rate/Rhythm Breast Exam: Deferred Gastrointestinal: No Organomegaly, Non Tender, No Pulsatile Mass, Normal Bowel Sounds, Soft Genitalia: Deferred Pelvic: Deferred Rectal: Deferred Extremities: Normal capillary refill, Normal inspection, Normal range of motion, Non-tender, Pedal edema (left foot non-pitting ) Musculoskeletal : Apperance: Normal Neurologic: Alert, No Motor Deficits, Normal Affect, Normal Mood, No Sensory Deficits Cerebellar Function: Normal Reflexes: Normal Skin: Dry, Normal Color, Rash (Erythemic ecchymotic rash to left pinky toe and lateral aspect of left foot blanchable positive pedal pulse), Warm Lymphatic: No Adenopathy Was a procedure done? Was a procedure done?: No Differential Diagnosis EXT Differential Diagnosis: Cellulitis, Fracture, Sprain, Dislocation, Neurovascular injury X-Ray, Labs, Meds, VS Vital Signs Date Time Temp Pulse Resp B/P (MAP) Pulse Ox O2 Delivery O2 Flow Rate FiO2 12/16/24 01:03 97.9 92 16 154/108 (123) 96 97.9 12/16/24 01:03 Room Air* 0 21 12/15/24 15:47 98.0 100 18 155/113 (127) 97 98.0 X-Ray, Labs, Meds, VS Comment X-ray and CT no acute. Findings noted script trial of antibiotics advised take medication as prescribed side effects discussed. Advised on rice. Advised to follow up with her PCP in 2 days for re-evaluation. ER return precautions given patient indicates understanding agrees with discharge plan of care. Time of 1ST Reevaluation: 17:53 Reevaluation 1ST: Unchanged Time of 2ND Reevaluation: 00:00 Reevaluation 2ND: Improved Patient Education/Counseling: Diagnosis, Treatment, Prognosis, Need For Follow Up Family Education/Counseling: Diagnosis, Treatment, Prognosis, Need For Follow Up Departure 1 Departure Time of Disposition: 00:23 Impression: Primary Impression: Cellulitis Qualified Codes: L03.818 - Cellulitis of other sites Disposition: 01 HOME / SELF CARE / HOMELESS Condition: Stable Discharged With: Self Critical Care Note Critical Care Time?: No Stability Stability form required: MAGNUS Melendez Dec 16, 2024 00:23
[2024-12-16 01:03] VITALS: BP 154/108; PULSE 92; RESP 16; TEMP 97.9; O2SAT 96
== END 2024-12-16 01:09 | disposition home or self-care (01) ==
LOC: ER 15:10
DX: L03.116 Cellulitis of left lower limb (principal); Z79.899 Other long term (current) drug therapy
CPT/HCPCS: 73630; 73700

== ENCOUNTER 2024-12-21 21:51 | Inpatient (IN) | payer OTHER, MEDICAID ==
[~2024-12-21] VITALS: Ht 167.6 cm; Wt 67.2 kg
[2024-12-21 22:25] LABS: Hematocrit 45.3 % (36.0-46.0); Hemoglobin 15.4 g/dL (12.2-16.2); Mean Corpuscular Hemoglobin 32.8 pg (28.0-32.0); Mean Corpuscular Volume 96.3 fL (80.0-100.0); Nucleated Red Blood Cells % 0.2 %
[2024-12-21 23:00] LABS: Alanine Aminotransferase 13 U/L (7-40); Albumin 4.3 g/dL (3.2-4.8); Alkaline Phosphatase 101 U/L (46-116); Anion Gap 12 (5-15); BUN/Creatinine Ratio 16.7 (10.0-20.0); Calcium 10.3 mg/dL (8.7-10.4); Carbon Dioxide 22 mmol/L (20-31); Glucose 100 mg/dL (74-106); Total Protein 6.6 g/dL (5.7-8.2)
[2024-12-21 23:01] LABS: Bilirubin, Total 0.5 mg/dL (0.2-1.0); Blood Urea Nitrogen 23 mg/dL (9-23); Chloride 111 mmol/L (98-107); Potassium 4.6 mmol/L (3.5-5.1); Sodium 145 mmol/L (136-145)
[2024-12-21] MEDS: SODIUM CHLORIDE 0.9% 1,000 ML IV ONE (23:27)
[2024-12-21 23:38] LABS: INR 1.02 (0.9-1.15); Prothrombin Time 10.8 sec (9.3-11.8)
[2024-12-21 23:42] LABS: Partial Thromboplastin Time 86.6 SEC (24.5-34.5)
--- NOTE | 2024-12-21 23:42 | ED.PDOC ---
Musculoskeletal HPI Comments This patient is an 79-year-old female with progressive Alzheimer's who was brought to our facility from [facility] due to a popliteal artery occlusion and left foot concerns. [facility] apparently performed a Doppler study of the left leg to confirmed the popliteal arterial occlusion. Heparin was given a [facility] prior to the patient being brought to our facility via EMS due to insurance concerns. Patient is a poor historian but does not appear to be in distress. Vital signs were stable. Chief Complaint: Lower Extremity Time Seen by MD: 21:52 Primary Care Provider: ELMER Reviewed Notes: Nurses Notes Allergies: Coded Allergies: NO KNOWN ALLERGIES (Unverified , 11/23/24) Home Meds Active Scripts Apixaban Base (ELIQUIS) 2.5 Mg Tab, 2.5 MG PO BID for 30 Days, #60 TAB Prov:RY ANAYA MASH PROCESSING OPERATOR 11/24/24 Amlodipine Besylate (Amlodipine Besylate) 10 Mg Tab, 1 TAB PO DAILY for 60 Days, #60 TAB Prov:RY ANAYA MASH PROCESSING OPERATOR 06/23/23 Metoprolol Succinate (Metoprolol Succinate Er) 25 Mg Tab, 1 TAB PO DAILY for 60 Days, #60 TAB Prov:RY ANAYA MASH PROCESSING OPERATOR 06/23/23 Reported Medications Pantoprazole Sodium Sesquihydr (Pantoprazole Sodium) 40 Mg Tab, 1 TAB PO DAILY 06/23/23 Donepezil Hydrochloride (DONEPEZIL HCL) 5 Mg Tab, 1 TAB PO DAILY 06/23/23 Clopidogrel Bisulfate (CLOPIDOGREL) 75 Mg Tab, 1 TAB PO DAILY 06/23/23 Glipizide (Glipizide Er) 2.5 Mg Tab, 1 TAB PO DAILY 06/23/23 Rosuvastatin Calcium (Rosuvastatin Calcium) 40 Mg Tab, 1 TAB PO DAILY 06/23/23 Information Source: Patient Mode of Arrival: EMS Location: Left Extremity Location: Foot, Leg Timing: Days Prehospital treatment: Other (Patient received heparin at [facility]) Severity: Moderate Able to Move Extremity: Yes Bear Weight: Limited Pain: Moderate Hand Dominance: Right Mechanism: Spontaneous Circumstances: Spontaneous Symptoms: Swelling DVT Risk Factors: DVT Past Medical History PAST MEDICAL HISTORY: Denies Surgical History: Denies all surgeries CONCRETE CURER History: No Pertinent CONCRETE CURER History Family History Family History: Reviewed,noncontributory to illness Social History Smoker: Non-Smoker Alcohol: Denies ETOH Use Drugs: Denies Drug Use Lives In: Home Constitutional: denies: chills, diaphoresis, fatigue, fever, malaise, sweats, weakness, others EENTM: denies: blurred vision, double vision, ear bleeding, ear discharge, ear drainage, ear pain, ear ringing, eye pain, eye redness, hearing loss, mouth pain, mouth swelling, nasal discharge, nose bleeding, nose congestion, nose pain, photophobia, tearing, throat pain, throat swelling, voice changes, others Respiratory: denies: cough, hemoptysis, orthopnea, SOB at rest, shortness of breath, SOB with excertion, stridor, wheezing, others Cardiovascular: denies: chest pain, dizzy spells, diaphoresis, Dyspnea on exertion, edema, irregular heart beat, left arm pain, lightheadedness, palpitations, PND, syncope, others Gastrointestinal: denies: abdomen distended, abdominal pain, blood streaked bowels, constipated, diarrhea, dysphagia, difficulty swallowing, hematemesis, melena, nausea, poor appetite, poor fluid intake, rectal bleeding, rectal pain, vomiting, others Genitourinary: denies: abnormal vagina bleeding, burning, dyspareunia, dysuria, flank pain, frequency, hematuria, incontinence, pain, , vagina discharge, urgency, others Neurological: denies: dizziness, fainting, headache, left sided numbness, left sided weakness, numbness, paresthesia, pre-existing deficit, right sided numbness, right sided weakness, seizure, speech problems, tingling, tremors, weakness, others Musculoskeletal: reports: others (Left foot and left leg concerns); denies: back pain, gout, joint pain, joint swelling, muscle pain, muscle stiffness, neck pain Integumetry: denies: bruises, change in color, change in hair/nails, dryness, laceration, lesions, lumps, rash, wounds, others Allergic/Immunocompromised: denies: Difficulty Healing, Frequent Infections, Hives, Itching, others Hematologic/Lymphatic: denies: anemia, blood clots, easy bleeding, easy bruising, swollen glands, others Endocrine: denies: excessive hunger, excessive sweating, excessive thirst, excessive urination, flushing, intolerance to cold, intolerance to heat, unexplained weight gain, unexplained weight loss, others Psychiatric: denies: anxiety, bipolar disorder, depression, hopeless, panic di sorder, schizophrenia, sleepless, suicidal, others Physical Exam General Appearance: Mild Distress (Moderate distress due to concerns related to her foot issues rather than definitive pain issues.), Normal HEENT: Normal ENT Inspection, Pharynx Normal, TMs Normal Neck: Full Range of Motion, Non-Tender, Normal, Normal Inspection Respiratory: Chest Non-Tender, Lungs Clear, No Accessory Muscle Use, No Respiratory Distress, Normal Breath Sounds Cardiovascular: No Edema, No JVD, No Murmur, No Gallop, Normal Peripheral Pulses, Regular Rate/Rhythm Breast Exam: Deferred Gastrointestinal: No Organomegaly, Non Tender, No Pulsatile Mass, Normal Bowel Sounds, Soft Genitalia: Deferred Pelvic: Deferred Rectal: Deferred Extremities: Other (Patient reveals a color transitioning pinky toe extending into the lateral aspect of the left foot. Patient denies any traumatic events. Mild tenderness to palpation.) Neurologic: Alert Cerebellar Function: Normal Reflexes: Normal Skin: Dry, Normal Color, Warm Lymphatic: No Adenopathy Was a procedure done? Was a procedure done?: No Differential Diagnosis EXT Differential Diagnosis: Other (Popliteal arterial occlusion, foot injury) X-Ray, Labs, Meds, VS Vital Signs Date Time Temp Pulse Resp B/P (MAP) Pulse Ox O2 Delivery O2 Flow Rate FiO2 12/21/24 22:18 97.9 68 18 136/87 (103) 97 97.9 Lab Test 12/21/24 23:11 12/21/24 22:08 Range/Units Troponin I High Sensitivity Pending 6 </=34 ng/L White Blood Count 6.7 4.4-10.8 10^3/uL Red Blood Count 4.71 4.0-5.20 10^6/uL Hemoglobin 15.4 12.2-16.2 g/dL Hematocrit 45.3 36.0-46.0 % Mean Corpuscular Volume 96.3 80.0-100.0 fL Mean Corpuscular Hemoglobin 32.8 H 28.0-32.0 pg Mean Corpuscular Hemoglobin Concent 34.0 32.0-36.0 g/dL Red Cell Distribution Width 14.2 11.8-14.3 % Platelet Count 244 140-450 10^3/uL Mean Platelet Volume 8.7 6.9-10.8 fL Neutrophils (%) (Auto) 57.8 37.0-80.0 % Lymphocytes (%) (Auto) 30.3 10.0-50.0 % Monocytes (%) (Auto) 8.4 0.0-12.0 % Eosinophils (%) (Auto) 3.1 0.0-7.0 % Basophils (%) (Auto) 0.4 0.0-2.0 % Neutrophils # (Auto) 3.9 1.6-8.6 10 ^3/uL Lymphocytes # (Auto) 2.0 0.4-5.4 10 ^3/uL Monocytes # (Auto) 0.6 0-1.3 10 ^3/uL Eosinophils # (Auto) 0.2 0-0.8 10 ^3/uL Basophils # (Auto) 0 0-0.2 10 ^3/uL Nucleated Red Blood Cells 0.2 % Prothrombin Time Pending Prothrombin Time INR Pending Activated Partial Thromboplast Time Pending Sodium Level 145 136-145 mmol/L Potassium Level 4.6 3.5-5.1 mmol/L Chloride Level 111 H 98-107 mmol/L Carbon Dioxide Level 22 20-31 mmol/L Anion Gap 12 5-15 Blood Urea Nitrogen 23 9-23 mg/dL Creatinine 1.38 H 0.550-1.02 mg/dL Glomerular Filtration Rate Calc 39 >90 mL/min BUN/Creatinine Ratio 16.7 10.0-20.0 Serum Glucose 100 74-106 mg/dL Lactic Acid Level 1.2 0.4-2.0 mmol/L Calcium Level 10.3 8.7-10.4 mg/dL Total Bilirubin 0.5 0.2-1.0 mg/dL Aspartate Amino Transferase (AST) 22 13-40 U/L Alanine Aminotransferase (ALT) 13 7-40 U/L Alkaline Phosphatase 101 46-116 U/L Total Protein 6.6 5.7-8.2 g/dL Albumin 4.3 3.2-4.8 g/dL X-Ray, Labs, Meds, VS Comment All studies performed the ED were evaluated by me personally. Coag studies were pending at time of this note. Serum laboratories were relatively unremarkable. Patient will be admitted for evaluation of left foot concerns as well as evaluation of arterial occlusive issues. Time of 1ST Reevaluation: 23:40 Reevaluation 1ST: Unchanged Consultation: PCP Patient Education/Counseling: Diagnosis, Treatment Family Education/Counseling: Diagnosis, Treatment Sepsis Sepsis Reasesment Focused Exam Orders: Laboratory Tests 12/21/24 22:08: Lactic Acid Level 1.2 Recent Procedure: No On Antibiotic Therapy: No Respiratory Rate >20: No Heart Rate >90: No Temp<36 C (96.8 F) or >38.3 C: No SBP <90 or MAP <65 mmHG: No New Acute Mental Status Change: No Is the patient on CPAP, BIPAP,: No Departure 1 Departure Time of Disposition: 23:41 Impression: Primary Impression: Popliteal artery occlusion, left Additional Impression: Foot injury Disposition: ADMITTED INPATIENT Condition: Stable Discharged With: Self Critical Care Note Critical Care Time?: No Stability Stability form required: No Heart Score Heart Score: Heart Score Response (Comments) Value History N/A 0 EKG N/A 0 Age N/A 0 Risk Factors N/A 0 Troponin N/A 0 Total 0 DANAE HALL PAC Dec 21, 2024 23:42
[2024-12-22] VITALS (9 sets, daily range): BP systolic 139–169; BP diastolic 72–100; PULSE 56–68; RESP 16–20; TEMP 97.6–98; O2SAT 93–98
[2024-12-22] MEDS ORDERED: NITROGLYCERIN 0.4 MG SL TAB SL PRN (01:45)
[2024-12-22] MEDS ORDERED: MORPHINE SULFATE INJ 2 MG/ml SYRG IV PRN (01:45)
--- NOTE | 2024-12-22 02:23 | DVHHP2 ---
History of Present Illness History of Present Illness This is a 79-year-old female with past medical history of Alzheimer's disease, PAD, GERD, HLD, HTN, DM 2, insomnia BIBEMS from [facility] with compl aint of left foot pain associated with left 5th toe skin discoloration for 3 weeks which is worsen for last 3 days. Patient went to her for PCP today and sent to [facility] for further evaluation left 5th toe skin discoloration, in [facility] lab work shows no leukocytosis, ESR 19, CRP 0.22, left foot x-ray no fracture or osseous abnormality, Venous duplex lower extremity-no evidence of acute deep vein thrombosis in left lower extremity, ultrasound arterial duplex left lower extremity-the distal left popliteal artery is occluded. Diminished velocity and abnormal monophasic waveform in the arteries of the left calf/foot likely high-grade stenosis of the distal left superficial femoral with markedly elevated velocity and received atorvastatin, clopidogrel, enoxaparin 40 mg. On admission, patient evaluated in ED. patient stated her left foot pain aggravated on walking or making any pressure but relief on rest, noted skin discoloration purple to black for last 3 days. Patient discharged on December 05 with Left 5th toe ischemia rule out. Patient not taking any medicine for more than week because of ran out of medication including blood thinners Eliquis. Currently patient denies any fever, chest pain, SOB, headache, nausea, vomiting, dysuria, abdominal pain, or any acute distress. PAST MEDICAL HISTORY: Alzheimer's disease, PAD, GERD, HLD, HTN, DM 2, insomnia Surgical History: Cholecystectomy Family History: noncontributory Social History Smoker: Non-Smoker Alcohol: Denies ETOH Use Drugs: Denies Drug Use Lives In: Home with sister and Allergy: No known allergy Review of Systems Constitutional: Yes: Weakness; No: Fever, Chills, Sweats, Malaise, Other Eyes: No: Pain, Vision change, Conjunctivae inflammation, Eyelid inflammation, Other, Redness ENT: No: Ear pain, Ear discharge, Nose pain, Nose discharge, Nose congestion, M outh pain, Mouth swelling, Throat pain, Throat swelling, Other Respiratory: No: Cough, Dry, Shortness of breath, SOB with excertion, Wheezing, Hemoptysis, Pleuritic Pain, Sputum, Wheezing, Other Cardiovascular: No: Chest Pain, Palpitations, Orthopnea, Paroxysmal Noc. Dyspnea, Edema, Lt Headedness, Other Gastrointestinal: No: Nausea, Vomiting, Abdominal Pain, Diarrhea, Constipation, Melena, Hematochezia, Other Genitourinary: No Dysuria, No Frequency, No Incontinence, No Hematuria, No Retention, No Other Musculoskeletal: No: other, neck pain, shoulder pain, arm pain, back pain, hand pain, leg pain, foot pain Skin: Lesions, Other (Black discoloration left 5th toe with gangrene appearance tip of the toe); No: Rash, Jaundice, Bruising Neurological: No: Weakness, Numbness, Incoordination, Change in speech, Confusion, Seizures, Other Allergies: Coded Allergies: NO KNOWN ALLERGIES (Unverified , 11/23/24) Medications Current Medications Medications Dose Ordered Sig/Tasia Route Start Time Stop Time Status Last Admin Dose Admin Heparin Sodium/ Dextrose 250 ml @ 13.86 mls/ hr Q18H3M IV 12/22/24 01:15 UNV Nitroglycerin 0.4 mg Q5MINP PRN SL 12/22/24 01:45 Morphine Sulfate 2 mg Q30M PRN IV 12/22/24 01:45 Clopidogrel Bisulfate 75 mg DAILY PO 12/22/24 10:00 UNV Metoprolol Succinate 25 mg DAILY PO 12/22/24 10:00 UNV Pantoprazole Sodium 40 mg DAILY@0600 PO 12/22/24 06:00 UNV Atorvastatin Calcium 40 mg HS PO 12/22/24 22:00 UNV Exam Vital Signs Vital Signs Date Time Temp Pulse Resp B/P (MAP) Pulse Ox O2 Delivery O2 Flow Rate FiO2 12/22/24 01:37 66 15 137/77 (97) 97 12/21/24 23:00 Room Air* 0 21 12/21/24 22:18 97.9 97.9 General Appearance: Alert, Oriented X3, Cooperative HEENT: Atraumatic, PERRLA, EOMI Respiratory: Clear to auscultation, Normal air movement Cardiovascular: Regular rate, Normal S1, Normal S2 Abdominal: Normal bowel sounds, Soft, No tenderness, No masses Extremities: No clubbing, No cyanosis, Other (Popliteal and artery are dorsalis pedis pulse unable to detect. Black discoloration of left 5th toe with gangrenous changes tip of the finger) Neuro: Normal speech, Other (Gait instability and use walkers) Labs/Xrays Labs Test 12/22/24 01:25 12/21/24 22:08 Range/Units White Blood Count 6.7 4.4-10.8 10^3/uL Red Blood Count 4.71 4.0-5.20 10^6/uL Hemoglobin 15.4 12.2-16.2 g/dL Hematocrit 45.3 36.0-46.0 % Mean Corpuscular Volume 96.3 80.0-100.0 fL Mean Corpuscular Hemoglobin 32.8 H 28.0-32.0 pg Mean Corpuscular Hemoglobin Concent 34.0 32.0-36.0 g/dL Red Cell Distribution Width 14.2 11.8-14.3 % Platelet Count 244 140-450 10^3/uL Mean Platelet Volume 8.7 6.9-10.8 fL Neutrophils (%) (Auto) 57.8 37.0-80.0 % Lymphocytes (%) (Auto) 30.3 10.0-50.0 % Monocytes (%) (Auto) 8.4 0.0-12.0 % Eosinophils (%) (Auto) 3.1 0.0-7.0 % Basophils (%) (Auto) 0.4 0.0-2.0 % Neutrophils # (Auto) 3.9 1.6-8.6 10 ^3/uL Lymphocytes # (Auto) 2.0 0.4-5.4 10 ^3/uL Monocytes # (Auto) 0.6 0-1.3 10 ^3/uL Eosinophils # (Auto) 0.2 0-0.8 10 ^3/uL Basophils # (Auto) 0 0-0.2 10 ^3/uL Nucleated Red Blood Cells 0.2 % Prothrombin Time 10.8 9.3-11.8 sec Prothrombin Time INR 1.02 0.9-1.15 Activated Partial Thromboplast Time 86.6 *H 24.5-34.5 SEC Sodium Level 145 136-145 mmol/L Potassium Level 4.6 3.5-5.1 mmol/L Chloride Level 111 H 98-107 mmol/L Carbon Dioxide Level 22 20-31 mmol/L Anion Gap 12 5-15 Blood Urea Nitrogen 23 9-23 mg/dL Creatinine 1.38 H 0.550-1.02 mg/dL Glomerular Filtration Rate Calc 39 >90 mL/min BUN/Creatinine Ratio 16.7 10.0-20.0 Serum Glucose 100 74-106 mg/dL Lactic Acid Level 1.2 0.4-2.0 mmol/L Calcium Level 10.3 8.7-10.4 mg/dL Total Bilirubin 0.5 0.2-1.0 mg/dL Aspartate Amino Transferase (AST) 22 13-40 U/L Alanine Aminotransferase (ALT) 13 7-40 U/L Alkaline Phosphatase 101 46-116 U/L Total Protein 6.6 5.7-8.2 g/dL Albumin 4.3 3.2-4.8 g/dL SEPSIS Sepsis Screen Date sepsis recognized/suspect: Dec 21, 2024 Time Sepsis recognized/suspect: 2149 Recent Procedure: No On Antibiotic Therapy: No Respiratory Rate >20: No Heart Rate >90: No Temp<36 C (96.8 F) or >38.3 C: No SBP <90 or MAP <65 mmHG: No New Acute Mental Status Change: No Is the patient on CPAP, BIPAP,: No Physician Orders Sodium Chloride 0.9% (12/21/24 22:00) Troponin-I Hs (12/22/24 00:57) Electrocardigram (12/21/24 21:57) Heplock Iv (12/21/24 ) Platelet Monitoring (12/22/24 01:06) Vte Protocol Initiated (12/22/24 01:06) Heparin Per Standardized Proce (12/22/24 01:06) Discontinue All Im Injections (12/22/24 01:06) Heparin Drip/D5w 100units/Ml (12/22/24 01:15) PTPTT (12/22/24 01:28) Admit (12/22/24 01:32) Nitroglycerin Sublingual (Ntrostat Subli (12/22/24 01:45) Morphine Sulfate Injection (12/22/24 01:45) B-Type Natriuretic Peptide (12/22/24 01:35) Chest Xray 1 View (12/22/24 01:35) Podiatry Consult (12/22/24 01:35) Clopidogrel Bisulfate (Plavix) (12/22/24 01:45) Clopidogrel Bisulfate (Plavix) (12/22/24 10:00) Metoprolol Xl Succinate (Toprol Xl) (12/22/24 01:45) Metoprolol Xl Succinate (Toprol Xl) (12/22/24 10:00) Pantoprazole Tablet (Protonix Tablet) (12/22/24 06:00) Atorvastatin (Lipitor) (12/22/24 01:45) Atorvastatin (Lipitor) (12/22/24 22:00) Vital Signs Date Time Temp Pulse Resp B/P (MAP) Pulse Ox O2 Delivery O2 Flow Rate FiO2 12/22/24 01:37 66 15 137/77 (97) 97 12/21/24 23:00 Room Air* 0 21 12/21/24 22:18 97.9 68 18 136/87 (103) 97 97.9 Laboratory Tests Test 12/21/24 22:08 Lactic Acid Level 1.2 mmol/L (0.4-2.0) White Blood Count 6.7 10^3/uL (4.4-10.8) Medications Medications Dose Ordered Sig/Tasia Route Start Time Stop Time Status Last Admin Dose Admin Sodium Chloride 1,000 ml @ 150 mls/hr Q6H40M ONCE IV 12/21/24 22:00 12/22/24 04:39 12/21/24 23:27 150 MLS/HR Assessment/Plan Assessment/Plan # SEVERE PERIPHERAL ARTERIAL DISEASE WITH CLAUDICATION RULE OUT ISCHEMIA -Patient came with left foot pain with skin discoloration -Patient not taking any medicine including blood thinner Eliquis > week -CT LEFT FOOT WITHOUT CONTRAST ON 12/15/2024: No acute fracture of the left foot.Nonspecific subcutaneous swelling and infiltration, an element of cellulitis cannot be excluded in the appropriate clinical setting. -LEFT LOWER EXTREMITY ARTERIAL DUPLEX (12/04/2024) : No hemodynamically significant stenosis based on peak systolic velocity criteria . Monophasic flow identified within the anterior tibial, posterior tibial and dorsalis pedis ar teries. -VENOUS DUPLEX BILATERAL LOWER EXTREMITY (12/04/2024): No right or left femoropopliteal venous thrombosis. -Venous duplex lower extremity(12/21/2024)-no evidence of acute deep vein thrombosis in left lower extremity([facility]) -Ultrasound arterial duplex left lower extremity(12/21/2024) -the distal left popliteal artery is occluded. Diminished velocity and abnormal monophasic waveform in the arteries of the left calf/foot likely high-grade stenosis of the distal left superficial femoral with markedly elevated velocity. -Received atorvastatin, clopidogrel, enoxaparin 40 mg. -No leukocytosis, ESR 19, CRP 0.22 -PT 10.6, INR 1.02, PTT 86.6 and repeat PT 10.4, INR 0.98, PTT 23.9 -X-RAY CHEST-no cardiopulmonary active disease, BNP-32.74 -Started heparin drip -[place] 5-325 mg p.o. q.8 p.r.n. -Podiatry consult # MORIS due to vasomotor nephropathy -Serum creatinine 1.38, baseline 1.06 eGFR 49 -Avoid nephrotoxic drugs -Encouraged oral FLUID intake # ESSENTIAL HYPERTENSION -Metoprolol succinate 25 mg p.o. daily -Amlodipine 10 mg PO daily. -Monitors blood pressure # HYPERLIPIDEMIA -Atorvastatin 40 mg p.o. daily -LDL 144, HDL 66, cholesterol 234, TG 112 on 11/14/2024 # TYPE 2 DIABETES MELLITUS -Hold home medication glipizide 2.5 mg daily -HbA1c 5.8 on 11/14/2024 -Start insulin sliding dose according to blood sugar. # ALZHEIMER'S DISEASE -Home medication donepezil 5 mg daily # INSOMNIA -Trazodone 50 mg-start if needed # GERD -Pantoprazole 40 mg p.o. daily Diet: Cardiac GI prophylaxis: Pantoprazole 40 mg p.o. daily DVT prophylaxis: Patient currently on heparin drip. Goals of care discussions, more than 29 minute spent with patient. Full code status. Case discussed with Dr. Spicer. Plan discussed with: Patient, Other (Nurse) My Orders Orders - ALLAN ESPINO RESIDENT Procedure Category Date Status Time Admit ADMIT 12/22/24 Transmitted 01:32 Nitroglycerin PHA 12/22/24 In Process Sublingual (Ntrostat 01:45 Morphine Sulfate PHA 12/22/24 In Process Injection 01:45 B-Type Natriuretic LAB 12/22/24 Logged Peptide 01:35 Chest Xray 1 View XY 12/22/24 Logged 01:35 Podiatry Consult CONS 12/22/24 Transmitted 01:35 Clopidogrel Bisulfate PHA 12/22/24 Logged (Plavix) 01:45 Clopidogrel Bisulfate PHA 12/22/24 Logged (Plavix) 10:00 Metoprolol Xl PHA 12/22/24 Logged Succinate (Toprol Xl) 01:45 Metoprolol Xl [facility] 12/22/24 Logged Succinate (Toprol Xl) 10:00 Pantoprazole Tablet [facility] 12/22/24 Logged (Protonix Tablet) 06:00 Atorvastatin (Lipitor) [facility] 12/22/24 Logged 01:45 Atorvastatin (Lipitor) [facility] 12/22/24 Logged 22:00 Date of Service: Dec 22, 2024 Billing Provider: VIKTORIYA SPICER MD Common Visit Codes: [id number] INP/OBS CARE (HIGH) Secondary Visit Codes: [id number] CARE PLAN 30 MINUTES ALALN ESPINO RESIDENT Dec 22, 2024 02:23
[2024-12-22] MEDS: CLOPIDOGREL BISULFATE 75 MG TAB PO ONE (02:33)
[2024-12-22] MEDS: ATORVASTATIN 20 MG TAB PO ONE (02:33)
[2024-12-22] MEDS: METOPROLOL SUCCINATE XL 50 MG TAB PO ONE (02:36)
[2024-12-22 02:40] LABS: INR 0.98 (0.9-1.15); Prothrombin Time 10.4 sec (9.3-11.8)
[2024-12-22 02:48] LABS: Partial Thromboplastin Time 23.9 SEC (24.5-34.5)
[2024-12-22] MEDS: HEPARIN SODIUM (PORCINE) 5000 UNITS/ML 1ML VIAL IV ONE (03:39)
--- NOTE | 2024-12-22 04:10 | DVH ---
CHEST RADIOGRAPH Indication: Rule out cardiopulmonary disease Technique: Single frontal view of the chest was obtained COMPARISON: XY CHEST XRAY 1 VIEW on DOS: 11/14/24, XY CHEST XRAY 1 VIEW on DOS: 06/22/23 FINDINGS: Lines and Tubes: None Lungs: Clear Pleura: No effusion. No pneumothorax. Cardiomediastinal contours: Unremarkable Bones: Unremarkable IMPRESSION: 1. No acute disease.
[2024-12-22] MEDS: HEPARIN DRIP/D5W 100UNITS/ML 250 ML IV ONE (04:32)
[2024-12-22] MEDS: HEPARIN DRIP/D5W 100UNITS/ML 250 ML IV SCH ×3 (04:47→23:33)
[2024-12-22] MEDS: PANTOPRAZOLE 40 MG TAB PO SCH (05:54)
[2024-12-22 12:19] LABS: INR 1.04 (0.9-1.15); Prothrombin Time 11.0 sec (9.3-11.8)
[2024-12-22 12:21] LABS: Partial Thromboplastin Time > 139.0 SEC (24.5-34.5)
--- NOTE | 2024-12-22 13:47 | CONS ---
Pharmacy Clinical Information: HOLD HEPARIN DRIPS FOR 1 HOUR PER APTT 139 THEN DECREASE HEPARIN DRIP RATE TO 1100 UNITS/HR NEXT APTT DRAW SCHEDULED FOR 1999 PER RX PROTOCOL Cece Larsen PHARMACIST Dec 22, 2024 13:47
[2024-12-22 21:37] LABS: INR 1.01 (0.9-1.15); Prothrombin Time 10.7 sec (9.3-11.8)
[2024-12-22 21:40] LABS: Partial Thromboplastin Time 120.7 SEC (24.5-34.5)
[2024-12-22] MEDS: DONEPEZIL HYDROCHLORIDE 5 MG TAB PO SCH (21:50)
[2024-12-22] MEDS: ATORVASTATIN 20 MG TAB PO SCH (21:51)
[2024-12-23] VITALS (8 sets, daily range): BP systolic 119–166; BP diastolic 59–94; PULSE 59–69; RESP 16–20; TEMP 97.6–98; O2SAT 95–98
[2024-12-23] MEDS: HYDROcodone-ACET 5/325MG TAB PO PRN (00:33)
[2024-12-23 07:47] LABS: INR 0.98 (0.9-1.15); Prothrombin Time 10.4 sec (9.3-11.8)
[2024-12-23 07:48] LABS: Partial Thromboplastin Time 103.0 SEC (24.5-34.5)
--- NOTE | 2024-12-23 08:47 | CONS ---
Pharmacy Clinical Information: PER RN CRYSTAL HEPARIN HOLD FOR 1 HOUR @ 07:54 PER RX PROTOCOL (APTT 103) RESTART HEPARIN DRIP AT RATE 500 UNITS/HR @0900 NEXT APTT DRAW SCHEDULED FOR 1300 PER RX PROTOCOL HUSSAIN CONDE PHARMACIST Dec 23, 2024 08:47
[2024-12-23] MEDS: HEPARIN DRIP/D5W 100UNITS/ML 250 ML IV SCH ×3 (08:54→22:18)
[2024-12-23] MEDS: METOPROLOL SUCCINATE XL 50 MG TAB PO SCH (09:09)
[2024-12-23] MEDS: CLOPIDOGREL BISULFATE 75 MG TAB PO SCH (09:09)
[2024-12-23 13:47] LABS: INR 0.95 (0.9-1.15); Partial Thromboplastin Time 28.9 SEC (24.5-34.5); Prothrombin Time 10.1 sec (9.3-11.8)
--- NOTE | 2024-12-23 14:40 | CONS ---
Pharmacy Clinical Information: APTT 28.9 => GIVE A BOLUS HEPARIN 5,000 UNITS IV INCREASE THE RATE OF TO 800 UNITS/HR NEXT APTT SCHEDULED @1900 PER RX PROTOCOL HUSSAIN CONDE PHARMACIST Dec 23, 2024 14:40
[2024-12-23] MEDS: HEPARIN SODIUM (PORCINE) 5000 UNITS/ML 1ML VIAL IV ONE (14:54)
--- NOTE | 2024-12-23 15:47 | DVHPN2 ---
Subjective having leg pain Reviewed: H&P, Labs Changes from previous H/P or p: No Changes Eyes: No Pain, No Vision change, No Conjunctivae inflammation, No Eyelid inflammation, No Other, No Redness ENT: No Ear pain, No Ear discharge, No Nose pain, No Nose discharge, No Nose congestion, No Mouth pain, No Mouth swelling, No Throat pain, No Throat swelling, No Other Cardiovascular: No Chest Pain, No Palpitations, No Orthopnea, No Paroxysmal Noc. Dyspnea, No Edema, No Lt Headedness, No Other Respiratory: No Cough, No Dry, No Shortness of breath, No SOB with excertion, No Wheezing, No Hemoptysis, No Pleuritic Pain, No Sputum, No Other Gastrointestinal: No Nausea, No Vomiting, No Abdominal Pain, No Diarrhea, No Constipation, No Melena, No Hematochezia, No Other Genitourinary: No Dysuria, No Frequency, No Incontinence, No Hematuria, No Retention, No Other Musculoskeletal: No other, No neck pain, No shoulder pain, No arm pain, No back pain, No hand pain, No leg pain, No foot pain Skin: No Rash; Lesions; No Jaundice, No Bruising; Other (Black discoloration left 5th toe with gangrene appearance tip of the toe) Objective Vitals Vital Signs Date Time Temp Pulse Resp B/P (MAP) Pulse Ox O2 Delivery O2 Flow Rate FiO2 12/23/24 12:42 97.6 64 20 160/80 (106) 96 97.6 12/23/24 08:04 Room Air* 0 21 Intake/Output Intake and Output 12/23/24 07:00 Intake Total 1496 ml Output Total 550 ml Balance 946 ml Intake Oral 1440 ml IV Total 56 ml Output Urine Total 550 ml # Voids 5 # Bowel Movements 1 General Appearance: Alert, Oriented X3 HEENT: Atraumatic Lungs: Clear to auscultation Cardiovascular: Regular rate, Normal S1 Abdomen: Normal bowel sounds Skin: Other (left 4th toe with redness) Medications Current Medications Medications Dose Ordered Sig/Taisa Route Start Time Stop Time Status Last Admin Dose Admin Nitroglycerin 0.4 mg Q5MINP PRN SL 12/22/24 01:45 Morphine Sulfate 2 mg Q30M PRN IV 12/22/24 01:45 Clopidogrel Bisulfate 75 mg DAILY PO 12/23/24 10:00 Metoprolol Succinate 25 mg DAILY PO 12/23/24 10:00 Pantoprazole Sodium 40 mg DAILY@0600 PO 12/22/24 06:00 12/23/24 05:45 40 MG Atorvastatin Calcium 40 mg HS PO 12/22/24 22:00 12/22/24 21:51 40 MG Acetaminophen/ Hydrocodone Bitart 1 tab Q8HPRN PRN PO 12/22/24 02:45 12/23/24 08:38 1 TAB Amlodipine Besylate 10 mg DAILY PO 12/22/24 10:00 12/23/24 08:37 10 MG Donepezil HCl 5 mg HS PO 12/22/24 22:00 12/22/24 21:50 5 MG Heparin Sodium/ Dextrose 250 ml @ 8 mls/hr Q24H IV 12/23/24 14:45 12/23/24 14:54 8 MLS/HR Laboratory Results Laboratory Tests 12/21/24 22:08 Coagulation Test 12/22/24 20:00 12/23/24 06:49 12/23/24 13:07 Prothrombin Time 10.7 sec (9.3-11.8) 10.4 sec (9.3-11.8) 10.1 sec (9.3-11.8) Prothrombin Time INR 1.01 (0.9-1.15) 0.98 (0.9-1.15) 0.95 (0.9-1.15) Activated Partial Thromboplast Time 120.7 SEC (24.5-34.5) *H 103.0 SEC (24.5-34.5) *H 28.9 SEC (24.5-34.5) Microbiology Microbiology Date/Time Source Procedure Growth Status 12/22/24 05:21 Nose MRSA Screen - Final Complete Assessment/Plan Assessment/Plan # 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 -LEFT LOWER EXTREMITY ARTERIAL DUPLEX (12/04/2024) : No hemodynamically significant stenosis based on peak systolic velocity criteria . Monophasic flow identified within the anterior tibial, posterior tibial and dorsalis pedis arteries. -VENOUS DUPLEX BILATERAL LOWER EXTREMITY (12/04/2024): No right or left femoropopliteal venous thrombosis. -Venous duplex lower extremity(12/21/2024)-no evidence of acute deep vein thrombosis in left lower extremity([facility]) -Ultrasound arterial duplex left lower extremity(12/21/2024) -the distal left popliteal artery is occluded. Diminished velocity and abnormal monophasic waveform in the arteries of the left calf/foot likely high-grade stenosis of the distal left superficial femoral with markedly elevated velocity. -Received atorvastatin, clopidogrel, enoxaparin 40 mg. -No leukocytosis, ESR 19, CRP 0.22 -PT 10.6, INR 1.02, PTT 86.6 and repeat PT 10.4, INR 0.98, PTT 23.9 -X-RAY CHEST-no cardiopulmonary active disease, BNP-32.74 -Started heparin drip -[place] 5-325 mg p.o. q.8 p.r.n. -Podiatry consult - Consult vascular surgery today # MORIS due to vasomotor nephropathy -Serum creatinine 1.38, baseline 1.06 eGFR 49 -Avoid nephrotoxic drugs -Encouraged oral FLUID intake # ESSENTIAL HYPERTENSION -Metoprolol succinate 25 mg p.o. daily -Amlodipine 10 mg PO daily. -Monitors blood pressure # HYPERLIPIDEMIA -Atorvastatin 40 mg p.o. daily -LDL 144, HDL 66, cholesterol 234, TG 112 on 11/14/2024 # TYPE 2 DIABETES MELLITUS -Hold home medication glipizide 2.5 mg daily -HbA1c 5.8 on 11/14/2024 -Start insulin sliding dose according to blood sugar. # ALZHEIMER'S DISEASE -Home medication donepezil 5 mg daily # INSOMNIA -Trazodone 50 mg-start if needed # GERD -Pantoprazole 40 mg p.o. daily Diet: Cardiac GI prophylaxis: Pantoprazole 40 mg p.o. daily DVT prophylaxis: Patient currently on heparin drip. Plan discussed with: Patient My Orders Orders - PUMA WARREN MD Procedure Category Date Status Time Consult CONS 12/23/24 Transmitted Vascular/Endovascular 11:15 Date of Service: Dec 23, 2024 Billing Provider: PUMA WARREN MD Common Visit Codes: [id number] INP/OBS CARE(HIGH) PUMA WARREN MD Dec 23, 2024 15:47
[2024-12-23 21:28] LABS: INR 0.97 (0.9-1.15); Prothrombin Time 10.3 sec (9.3-11.8)
[2024-12-23 21:50] LABS: Partial Thromboplastin Time 83.7 SEC (24.5-34.5)
[2024-12-23 23:28] LABS: Urine Protein, UAD Negative (Negative)
[2024-12-24] VITALS (8 sets, daily range): BP systolic 125–166; BP diastolic 74–91; PULSE 20–83; RESP 14–19; TEMP 96.4–98.2; O2SAT 95–99
[2024-12-24 08:12] LABS: Potassium 4.1 mmol/L (3.5-5.1); Sodium 139 mmol/L (136-145)
[2024-12-24 08:13] LABS: Anion Gap 10 (5-15); Calcium 10.2 mg/dL (8.7-10.4); Carbon Dioxide 21 mmol/L (20-31); Hematocrit 42.4 % (36.0-46.0); Hemoglobin 14.4 g/dL (12.2-16.2); Mean Corpuscular Hemoglobin 32.9 pg (28.0-32.0); Mean Corpuscular Volume 96.7 fL (80.0-100.0); Nucleated Red Blood Cells % 0.2 %
[2024-12-24 08:18] LABS: BUN/Creatinine Ratio 9.8 (10.0-20.0); Blood Urea Nitrogen 13 mg/dL (9-23); Glucose 94 mg/dL (74-106)
[2024-12-24 08:23] LABS: Chloride 108 mmol/L (98-107)
[2024-12-24 08:26] LABS: INR 0.97 (0.9-1.15); Partial Thromboplastin Time 52.7 SEC (24.5-34.5); Prothrombin Time 10.3 sec (9.3-11.8)
[2024-12-24 13:58] LABS: INR 0.97 (0.9-1.15); Partial Thromboplastin Time 38.6 SEC (24.5-34.5); Prothrombin Time 10.3 sec (9.3-11.8)
--- NOTE | 2024-12-24 14:18 | CONS ---
Pharmacy Clinical Information: HEPARIN DRIP, ARTERIAL THROMBUS PROTOCOL @1254 APTT 38.6 - NO BOLUS, INCREASE HE[LUIS MANUEL DRIP RATE TO 800 UNITS/HRS NEXT APTT DRAW SCHEDULED @2029 PER RX PROTOCOL CONFIRMED AND READ BACK WITH HUSSAIN PONCE PHARMACIST Dec 24, 2024 14:18
[2024-12-24] MEDS: HEPARIN DRIP/D5W 100UNITS/ML 250 ML IV SCH ×2 (14:27→23:14)
--- NOTE | 2024-12-24 14:29 | DVHINCON2 ---
Date Seen: Dec 24, 2024 Reason for Consultation Left foot 5th toe ischemia History of Present Illness This is a 79-year-old female with past medical history of Alzheimer's disease, PAD, GERD, HLD, HTN, DM 2, insomnia BIBEMS from [facility] with complaint of left foot pain associated with left 5th toe skin discoloration for 3 weeks which is worsen for last 3 days. Patient went to her for PCP today and sent to [facility] for further evaluation left 5th toe skin discoloration, in [facility] lab work shows no leukocytosis, ESR 19, C RP 0.22, left foot x-ray no fracture or osseous abnormality, Venous duplex lower extremity-no evidence of acute deep vein thrombosis in left lower extremity, ultrasound arterial duplex left lower extremity-the distal left popliteal artery is occluded. Diminished velocity and abnormal monophasic waveform in the arteries of the left calf/foot likely high-grade stenosis of the distal left superficial femoral with markedly elevated velocity and received atorvastatin, clopidogrel, enoxaparin 40 mg. On admission, patient evaluated in ED. patient stated her left foot pain aggravated on walking or making any pressure but relief on rest, noted skin discoloration purple to black for last 3 days. Patient discharged on December 05 with Left 5th toe ischemia rule out. Patient not taking any medicine for more than week because of ran out of medication including blood thinners Eliquis. Currently patient denies any fever, chest pain, SOB, headache, nausea, vomiting, dysuria, abdominal pain, or any acute distress. Past Medical History See H&P Past Surgical History See H&P Family History: Arthritis G8 MOTHER Asthma G8 MOTHER FH: dementia G8 MOTHER G8 FATHER G8 SISTER Allergies: Coded Allergies: NO KNOWN ALLERGIES (Unverified , 11/23/24) Home Meds Active Scripts Apixaban Base (ELIQUIS) 2.5 Mg Tab, 2.5 MG PO BID for 30 Days, #60 TAB Prov:RY ANAYA [employer] 11/24/24 Amlodipine Besylate (Amlodipine Besylate) 10 Mg Tab, 1 TAB PO DAILY for 60 Days, #60 TAB Prov:RY ANAYA [employer] 06/23/23 Metoprolol Succinate (Metoprolol Succinate Er) 25 Mg Tab, 1 TAB PO DAILY for 60 Days, #60 TAB Prov:RY ANAYA [employer] 06/23/23 Reported Medications Pantoprazole Sodium Sesquihydr (Pantoprazole Sodium) 40 Mg Tab, 1 TAB PO DAILY 06/23/23 Donepezil Hydrochloride (DONEPEZIL HCL) 5 Mg Tab, 1 TAB PO DAILY 06/23/23 Clopidogrel Bisulfate (CLOPIDOGREL) 75 Mg Tab, 1 TAB PO DAILY 06/23/23 Glipizide (Glipizide Er) 2.5 Mg Tab, 1 TAB PO DAILY 06/23/23 Rosuvastatin Calcium (Rosuvastatin Calcium) 40 Mg Tab, 1 TAB PO DAILY 06/23/23 Current Medications Current Medications Medications (Trade) Dose Ordered Sig/Tasia Route PRN Reason Start Time Stop Time Status Last Admin Heparin Sodium/ Dextrose 250 ml @ 8 mls/hr Q24H IV 12/23/24 14:45 12/23/24 22:08 DC 12/23/24 14:54 Heparin Sodium/ Dextrose 250 ml @ 6 mls/hr Q24H IV 12/23/24 22:15 12/24/24 14:14 DC 12/23/24 22:18 Heparin Sodium/ Dextrose 250 ml @ 8 mls/hr Q24H IV 12/24/24 14:15 Vital Signs Vital Signs Date Time Temp Pulse Resp B/P (MAP) Pulse Ox O2 Delivery O2 Flow Rate FiO2 12/24/24 09:00 97.9 66 14 166/89 (114) 99 97.9 157/91 (113) 12/24/24 07:46 Room Air* 0 21 Physical Exam Dermatological: Skin is dry with mild erythema and some maceration around the wound site No gross deformities noted Mild non-pitting edema present bilaterally Left 5th toe dusky appearance Vascular: Dorsalis pedis and posterior tibial pulses are 1+ bilaterally Capillary refill is under 2 seconds Skin temperature is warm bilaterally Neurologic: Protective sensation is absent on the plantar forefoot bilaterally Monofilament testing reveals decreased sensation in multiple plantar sites Musculoskeletal: Range of motion at the ankle and MTP joints is within normal limits. Strength is 5/5 in all tested muscle groups. Gait is antalgic due to offloading of the affected limb. Labs/Diagnostic Data Labs Test 12/24/24 12:54 12/24/24 06:34 12/23/24 23:00 12/22/24 01:54 Range/Units Prothrombin Time 10.3 9.3-11.8 sec Prothrombin Time INR 0.97 0.9-1.15 Activated Partial Thromboplast Time 38.6 H 24.5-34.5 SEC White Blood Count 5.7 4.4-10.8 10^3/uL Red Blood Count 4.38 4.0-5.20 10^6/uL Hemoglobin 14.4 12.2-16.2 g/dL Hematocrit 42.4 36.0-46.0 % Mean Corpuscular Volume 96.7 80.0-100.0 fL Mean Corpuscular Hemoglobin 32.9 H 28.0-32.0 pg Mean Corpuscular Hemoglobin Concent 34.0 32.0-36.0 g/dL Red Cell Distribution Width 13.8 11.8-14.3 % Platelet Count 230 140-450 10^3/uL Mean Platelet Volume 9.5 6.9-10.8 fL Neutrophils (%) (Auto) 57.3 37.0-80.0 % Lymphocytes (%) (Auto) 29.9 10.0-50.0 % Monocytes (%) (Auto) 9.2 0.0-12.0 % Eosinophils (%) (Auto) 3.0 0.0-7.0 % Basophils (%) (Auto) 0.6 0.0-2.0 % Neutrophils # (Auto) 3.3 1.6-8.6 10 ^3/uL Lymphocytes # (Auto) 1.7 0.4-5.4 10 ^3/uL Monocytes # (Auto) 0.5 0-1.3 10 ^3/uL Eosinophils # (Auto) 0.2 0-0.8 10 ^3/uL Basophils # (Auto) 0 0-0.2 10 ^3/uL Nucleated Red Blood Cells 0.2 % Sodium Level 139 # 136-145 mmol/L Potassium Level 4.1 3.5-5.1 mmol/L Chloride Level 108 H 98-107 mmol/L Carbon Dioxide Level 21 20-31 mmol/L Anion Gap 10 5-15 Blood Urea Nitrogen 13 9-23 mg/dL Creatinine 1.33 H 0.550-1.02 mg/dL Glomerular Filtration Rate Calc 40 >90 mL/min BUN/Creatinine Ratio 9.8 L 10.0-20.0 Serum Glucose 94 74-106 mg/dL Calcium Level 10.2 8.7-10.4 mg/dL Urine Color Light-yellow Yellow Urine Clarity Clear Clear Urine pH 6.5 5.0-9.0 Urine Specific [place] 1.014 1.001-1.035 Urine Protein Negative Negative Urine Ketones Negative Negative Urine Blood Negative Negative /uL Urine Nitrite Negative Negative Urine Bilirubin Negative Negative Urine Urobilinogen Normal Negative mg/dL Urine Leukocyte Esterase 2+ Negative /uL Urine RBC None seen 0 - 4 /hpf Urine Microscopic WBC 4 0-5 /HPF Urine Squamous Epithelial Cells Few <5 /hpf Urine Bacteria Few H None Seen /hpf Urine Mucus Few None Seen Urine Glucose Normal Normal mg/dL B-Type Natriuretic Peptide 32.74 0-100 pg/mL Test 12/22/24 01:25 12/21/24 22:08 Range/Units Troponin I High Sensitivity 6 </=34 ng/L Lactic Acid Level 1.2 0.4-2.0 mmol/L Total Bilirubin 0.5 0.2-1.0 mg/dL Aspartate Amino Transferase (AST) 22 13-40 U/L Alanine Aminotransferase (ALT) 13 7-40 U/L Alkaline Phosphatase 101 46-116 U/L Total Protein 6.6 5.7-8.2 g/dL Albumin 4.3 3.2-4.8 g/dL Microbiology Date/Time Source Procedure Growth Status 12/22/24 05:21 Nose MRSA Screen - Final Complete Problems(with codes): (1) Non-insulin dependent diabetes mellitus (2) Hypertension (3) Peripheral artery disease (4) Contusion of fifth toe, left (5) History of multiple cerebrovascular accidents (CVAs) (6) TIA (transient ischemic attack) (7) Dysphagia (8) CVA (cerebral vascular accident) (9) Hypertensive urgency (10) Foot injury (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 - reviewed advanced imaging - recommend vascular consulted for intervention - would allow the toe to demarcate - no advanced imaging required - if toe amputation required in the future re-consult All questions were answered and concerns addressed to the patient's satisfactio n. The patient was given the phone number to the clinic and was told how to make contact with the clinic should any concerns or questions arise. Patient understands that if any questions or concerns arise prior to the next appointment, we should be contacted immediately. FOLLOW-UP: Continue to follow while inpatient Plan discussed with: Patient Date of Service: Dec 24, 2024 Billing Provider: ASHISH CRUZ DPM Common Visit Codes: CONSULT ONLY Consultation Codes: [id number] CONSULT <80MIN ASHISH CRUZ DPM Dec 24, 2024 14:29
--- NOTE | 2024-12-24 17:53 | DVHPN2 ---
Subjective having leg pain Reviewed: H&P, Labs Changes from previous H/P or p: No Changes Eyes: No Pain, No Vision change, No Conjunctivae inflammation, No Eyelid inflammation, No Other, No Redness ENT: No Ear pain, No Ear discharge, No Nose pain, No Nose discharge, No Nose congestion, No Mouth pain, No Mouth swelling, No Throat pain, No Throat swelling, No Other Cardiovascular: No Chest Pain, No Palpitations, No Orthopnea, No Paroxysmal Noc. Dyspnea, No Edema, No Lt Headedness, No Other Respiratory: No Cough, No Dry, No Shortness of breath, No SOB with excertion, No Wheezing, No Hemoptysis, No Pleuritic Pain, No Sputum, No Other Gastrointestinal: No Nausea, No Vomiting, No Abdominal Pain, No Diarrhea, No Constipation, No Melena, No Hematochezia, No Other Genitourinary: No Dysuria, No Frequency, No Incontinence, No Hematuria, No Retention, No Other Musculoskeletal: No other, No neck pain, No shoulder pain, No arm pain, No back pain, No hand pain, No leg pain, No foot pain Skin: No Rash; Lesions; No Jaundice, No Bruising; Other (Black discoloration left 5th toe with gangrene appearance tip of the toe) Objective Vitals Vital Signs Date Time Temp Pulse Resp B/P (MAP) Pulse Ox O2 Delivery O2 Flow Rate FiO2 12/24/24 09:00 97.9 66 14 166/89 (114) 99 97.9 157/91 (113) 12/24/24 07:46 Room Air* 0 21 Intake/Output Intake and Output 12/24/24 07:00 Intake Total 1780 ml Output Total 650 ml Balance 1130 ml Intake Oral 1780 ml Output Urine Total 650 ml # Voids 6 # Bowel Movements 2 General Appearance: Alert, Oriented X3 HEENT: Atraumatic Lungs: Clear to auscultation Cardiovascular: Regular rate, Normal S1 Abdomen: Normal bowel sounds Skin: Other (left 4th toe with redness) Medications Current Medications Medications Dose Ordered Sig/Tasia Route Start Time Stop Time Status Last Admin Dose Admin Nitroglycerin 0.4 mg Q5MINP PRN SL 12/22/24 01:45 Morphine Sulfate 2 mg Q30M PRN IV 12/22/24 01:45 Clopidogrel Bisulfate 75 mg DAILY PO 12/23/24 10:00 12/24/24 08:56 75 MG Metoprolol Succinate 25 mg DAILY PO 12/23/24 10:00 Pantoprazole Sodium 40 mg DAILY@0600 PO 12/22/24 06:00 12/24/24 05:40 40 MG Atorvastatin Calcium 40 mg HS PO 12/22/24 22:00 12/23/24 22:06 40 MG Acetaminophen/ Hydrocodone Bitart 1 tab Q8HPRN PRN PO 12/22/24 02:45 12/24/24 17:09 1 TAB Amlodipine Besylate 10 mg DAILY PO 12/22/24 10:00 12/24/24 08:56 10 MG Donepezil HCl 5 mg HS PO 12/22/24 22:00 12/23/24 22:06 5 MG Heparin Sodium/ Dextrose 250 ml @ 8 mls/hr Q24H IV 12/24/24 14:15 12/24/24 14:27 8 MLS/HR Laboratory Results Laboratory Tests 12/24/24 06:34 Chemistry Test 12/24/24 06:34 Calcium Level 10.2 mg/dL (8.7-10.4) Coagulation Test 12/23/24 20:56 12/24/24 06:34 12/24/24 12:54 Prothrombin Time 10.3 sec (9.3-11.8) 10.3 sec (9.3-11.8) 10.3 sec (9.3-11.8) Prothrombin Time INR 0.97 (0.9-1.15) 0.97 (0.9-1.15) 0.97 (0.9-1.15) Activated Partial Thromboplast Time 83.7 SEC (24.5-34.5) *H 52.7 SEC (24.5-34.5) H 38.6 SEC (24.5-34.5) H Urinalysis Test 12/23/24 23:00 Urine Color Light-yellow (Yellow) Urine Clarity Clear (Clear) Urine pH 6.5 (5.0-9.0) Urine Specific [place] 1.014 (1.001-1.035) Urine Protein Negative (Negative) Urine Ketones Negative (Negative) Urine Blood Negative /uL (Negative) Urine Nitrite Negative (Negative) Urine Bilirubin Negative (Negative) Urine Urobilinogen Normal mg/dL (Negative) Urine Leukocyte Esterase 2+ /uL (Negative) Urine RBC None seen /hpf (0 - 4) Urine Microscopic WBC 4 /HPF (0-5) Urine Squamous Epithelial Cells Few /hpf (<5) Urine Bacteria Few /hpf (None Seen) H Urine Mucus Few (None Seen) Urine Glucose Normal mg/dL (Normal) Microbiology Microbiology Date/Time Source Procedure Growth Status 12/22/24 05:21 Nose MRSA Screen - Final Complete Assessment/Plan Assessment/Plan # 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 -LEFT LOWER EXTREMITY ARTERIAL DUPLEX (12/04/2024) : No hemodynamically significant stenosis based on peak systolic velocity criteria . Monophasic flow identified within the anterior tibial, posterior tibial and dorsalis pedis arteries. -VENOUS DUPLEX BILATERAL LOWER EXTREMITY (12/04/2024): No right or left femoropopliteal venous thrombosis. -Venous duplex lower extremity(12/21/2024)-no evidence of acute deep vein thrombosis in left lower extremity([facility]) -Ultrasound arterial duplex left lower extremity(12/21/2024) -the distal left popliteal artery is occluded. Diminished velocity and abnormal monophasic waveform in the arteries of the left calf/foot likely high-grade stenosis of the distal left superficial femoral with markedly elevated velocity. -Received atorvastatin, clopidogrel, enoxaparin 40 mg. -No leukocytosis, ESR 19, CRP 0.22 -PT 10.6, INR 1.02, PTT 86.6 and repeat PT 10.4, INR 0.98, PTT 23.9 -X-RAY CHEST-no cardiopulmonary active disease, BNP-32.74 -Started heparin drip -[place] 5-325 mg p.o. q.8 p.r.n. -Podiatry consult>no further surgery and will likely follow as outpatient - Consult vascular surgery today # MORIS due to vasomotor nephropathy -Serum creatinine 1.38, baseline 1.06 eGFR 49 -Avoid nephrotoxic drugs -Encouraged oral FLUID intake # ESSENTIAL HYPERTENSION -Metoprolol succinate 25 mg p.o. daily -Amlodipine 10 mg PO daily. -Monitors blood pressure # HYPERLIPIDEMIA -Atorvastatin 40 mg p.o. daily -LDL 144, HDL 66, cholesterol 234, TG 112 on 11/14/2024 # TYPE 2 DIABETES MELLITUS -Hold home medication glipizide 2.5 mg daily -HbA1c 5.8 on 11/14/2024 -Start insulin sliding dose according to blood sugar. # ALZHEIMER'S DISEASE -Home medication donepezil 5 mg daily # INSOMNIA -Trazodone 50 mg-start if needed # GERD -Pantoprazole 40 mg p.o. daily Diet: Cardiac GI prophylaxis: Pantoprazole 40 mg p.o. daily DVT prophylaxis: Patient currently on heparin drip. Plan discussed with: Patient Date of Service: Dec 24, 2024 Billing Provider: PUMA WARREN MD Common Visit Codes: [id number] INP/OBS CARE(HIGH) PUMA WARREN MD Dec 24, 2024 17:53
[2024-12-24 21:42] LABS: INR 0.97 (0.9-1.15); Partial Thromboplastin Time 37.3 SEC (24.5-34.5); Prothrombin Time 10.3 sec (9.3-11.8)
[2024-12-25] VITALS (8 sets, daily range): BP systolic 108–133; BP diastolic 64–80; PULSE 65–89; RESP 14–17; TEMP 96.3–97.8; O2SAT 94–100
[2024-12-25 07:20] LABS: Hematocrit 41.8 % (36.0-46.0); Hemoglobin 14.8 g/dL (12.2-16.2); Mean Corpuscular Hemoglobin 33.5 pg (28.0-32.0); Mean Corpuscular Volume 94.7 fL (80.0-100.0); Nucleated Red Blood Cells % 0.1 %
[2024-12-25 07:31] LABS: Anion Gap 14 (5-15); Carbon Dioxide 22 mmol/L (20-31); Chloride 104 mmol/L (98-107); Potassium 4.1 mmol/L (3.5-5.1); Sodium 140 mmol/L (136-145)
[2024-12-25 07:37] LABS: BUN/Creatinine Ratio 10.6 (10.0-20.0); Blood Urea Nitrogen 15 mg/dL (9-23); INR 0.97 (0.9-1.15); Partial Thromboplastin Time 64.6 SEC (24.5-34.5); Prothrombin Time 10.3 sec (9.3-11.8)
[2024-12-25 07:38] LABS: Calcium 10.6 mg/dL (8.7-10.4); Glucose 115 mg/dL (74-106)
[2024-12-25 13:53] LABS: INR 1.02 (0.9-1.15); Prothrombin Time 10.8 sec (9.3-11.8)
[2024-12-25 14:00] LABS: Partial Thromboplastin Time 121.7 SEC (24.5-34.5)
--- NOTE | 2024-12-25 14:35 | CONS ---
Pharmacy Clinical Information: HEPARIN DRIP, ARTERIAL THROMBUS PROTOCOL @1312 APTT 121.7 - HOLD HEPARIN DRIP FOR 1 HR, RESTART HEPARIN DRIP AT RATE 700 UNITS/HR @1515 NEXT APTT DRAW SCHEDULED @2114 PER RX PROTOCOL CONFIRMED AND READ BACK WITH HUSSAIN MAN PHARMACIST Dec 25, 2024 14:35
[2024-12-25] MEDS: HEPARIN DRIP/D5W 100UNITS/ML 250 ML IV SCH ×2 (15:15→23:32)
--- NOTE | 2024-12-25 16:18 | DVHPN2 ---
Subjective No leg pain Reviewed: H&P, Labs Changes from previous H/P or p: No Changes Eyes: No Pain, No Vision change, No Conjunctivae inflammation, No Eyelid inflammation, No Other, No Redness ENT: No Ear pain, No Ear discharge, No Nose pain, No Nose discharge, No Nose congestion, No Mouth pain, No Mouth swelling, No Throat pain, No Throat swelling, No Other Cardiovascular: No Chest Pain, No Palpitations, No Orthopnea, No Paroxysmal Noc. Dyspnea, No Edema, No Lt Headedness, No Other Respiratory: No Cough, No Dry, No Shortness of breath, No SOB with excertion, No Wheezing, No Hemoptysis, No Pleuritic Pain, No Sputum, No Other Gastrointestinal: No Nausea, No Vomiting, No Abdominal Pain, No Diarrhea, No Constipation, No Melena, No Hematochezia, No Other Genitourinary: No Dysuria, No Frequency, No Incontinence, No Hematuria, No Retention, No Other Musculoskeletal: No other, No neck pain, No shoulder pain, No arm pain, No back pain, No hand pain, No leg pain, No foot pain Skin: No Rash; Lesions; No Jaundice, No Bruising; Other (Black discoloration left 5th toe with gangrene appearance tip of the toe) Objective Vitals Vital Signs Date Time Temp Pulse Resp B/P (MAP) Pulse Ox O2 Delivery O2 Flow Rate FiO2 12/25/24 13:00 97.4 66 17 118/80 (93) 94 97.4 12/25/24 08:00 Room Air* 0 21 Intake/Output Intake and Output 12/25/24 07:00 Intake Total 342 ml Balance 342 ml Intake Oral 300 ml IV Total 42 ml # Voids 5 # Bowel Movements 2 General Appearance: Alert, Oriented X3 HEENT: Atraumatic Lungs: Clear to auscultation Cardiovascular: Regular rate, Normal S1 Abdomen: Normal bowel sounds Skin: Other (left 4th toe with redness) Medications Current Medications Medications Dose Ordered Sig/Tasia Route Start Time Stop Time Status Last Admin Dose Admin Nitroglycerin 0.4 mg Q5MINP PRN SL 12/22/24 01:45 Morphine Sulfate 2 mg Q30M PRN IV 12/22/24 01:45 Clopidogrel Bisulfate 75 mg DAILY PO 12/23/24 10:00 12/25/24 10:04 75 MG Metoprolol Succinate 25 mg DAILY PO 12/23/24 10:00 12/25/24 10:04 25 MG Pantoprazole Sodium 40 mg DAILY@0600 PO 12/22/24 06:00 12/25/24 05:36 40 MG Atorvastatin Calcium 40 mg HS PO 12/22/24 22:00 12/24/24 21:00 40 MG Acetaminophen/ Hydrocodone Bitart 1 tab Q8HPRN PRN PO 12/22/24 02:45 12/25/24 03:29 1 TAB Amlodipine Besylate 10 mg DAILY PO 12/22/24 10:00 12/25/24 10:05 10 MG Donepezil HCl 5 mg HS PO 12/22/24 22:00 12/24/24 21:00 5 MG Heparin Sodium/ Dextrose 250 ml @ 7 mls/hr Q24H IV 12/25/24 15:15 Laboratory Results Laboratory Tests 12/25/24 06:24 Chemistry Test 12/25/24 06:24 Calcium Level 10.6 mg/dL (8.7-10.4) H Coagulation Test 12/24/24 20:36 12/25/24 06:24 12/25/24 13:12 Prothrombin Time 10.3 sec (9.3-11.8) 10.3 sec (9.3-11.8) 10.8 sec (9.3-11.8) Prothrombin Time INR 0.97 (0.9-1.15) 0.97 (0.9-1.15) 1.02 (0.9-1.15) Activated Partial Thromboplast Time 37.3 SEC (24.5-34.5) H 64.6 SEC (24.5-34.5) H 121.7 SEC (24.5-34.5) *H Urinalysis Test 12/23/24 23:00 Urine Color Light-yellow (Yellow) Urine Clarity Clear (Clear) Urine pH 6.5 (5.0-9.0) Urine Specific [place] 1.014 (1.001-1.035) Urine Protein Negative (Negative) Urine Ketones Negative (Negative) Urine Blood Negative /uL (Negative) Urine Nitrite Negative (Negative) Urine Bilirubin Negative (Negative) Urine Urobilinogen Normal mg/dL (Negative) Urine Leukocyte Esterase 2+ /uL (Negative) Urine RBC None seen /hpf (0 - 4) Urine Microscopic WBC 4 /HPF (0-5) Urine Squamous Epithelial Cells Few /hpf (<5) Urine Bacteria Few /hpf (None Seen) H Urine Mucus Few (None Seen) Urine Glucose Normal mg/dL (Normal) Microbiology Microbiology Date/Time Source Procedure Growth Status 12/22/24 05:21 Nose MRSA Screen - Final Complete Assessment/Plan Assessment/Plan # 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 -LEFT LOWER EXTREMITY ARTERIAL DUPLEX (12/04/2024) : No hemodynamically significant stenosis based on peak systolic velocity criteria . Monophasic flow identified within the anterior tibial, posterior tibial and dorsalis pedis arteries. -VENOUS DUPLEX BILATERAL LOWER EXTREMITY (12/04/2024): No right or left femoropopliteal venous thrombosis. -Venous duplex lower extremity(12/21/2024)-no evidence of acute deep vein thrombosis in left lower extremity([facility]) -Ultrasound arterial duplex left lower extremity(12/21/2024) -the distal left popliteal artery is occluded. Diminished velocity and abnormal monophasic waveform in the arteries of the left calf/foot likely high-grade stenosis of the distal left superficial femoral with markedly elevated velocity. -Received atorvastatin, clopidogrel, enoxaparin 40 mg. -No leukocytosis, ESR 19, CRP 0.22 -PT 10.6, INR 1.02, PTT 86.6 and repeat PT 10.4, INR 0.98, PTT 23.9 -X-RAY CHEST-no cardiopulmonary active disease, BNP-32.74 -Started heparin drip -[place] 5-325 mg p.o. q.8 p.r.n. 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 daily -Amlodipine 10 mg PO daily. -Monitors blood pressure # HYPERLIPIDEMIA -Atorvastatin 40 mg p.o. daily -LDL 144, HDL 66, cholesterol 234, TG 112 on 11/14/2024 # TYPE 2 DIABETES MELLITUS -Hold home medication glipizide 2.5 mg daily -HbA1c 5.8 on 11/14/2024 -Start insulin sliding dose according to blood sugar. # ALZHEIMER'S DISEASE -Home medication donepezil 5 mg daily # INSOMNIA -Trazodone 50 mg-start if needed # GERD -Pantoprazole 40 mg p.o. daily Diet: Cardiac GI prophylaxis: Pantoprazole 40 mg p.o. daily DVT prophylaxis: Patient currently on heparin drip. Plan discussed with: Patient My Orders Orders - PUMA WARREN MD Procedure Category Date Status Time Insert Midline ORDERS 12/25/24 Transmitted 08:06 Date of Service: Dec 25, 2024 Billing Provider: PUMA WARREN MD Common Visit Codes: [id number] INP/OBS CARE(HIGH) PUMA WARREN MD Dec 25, 2024 16:18
[2024-12-25 22:00] LABS: INR 0.97 (0.9-1.15); Prothrombin Time 10.3 sec (9.3-11.8)
[2024-12-25 22:03] LABS: Partial Thromboplastin Time 108.5 SEC (24.5-34.5)
[2024-12-26 05:24] VITALS: BP 113/62; PULSE 65; RESP 16; TEMP 97.9; O2SAT 96
[2024-12-26 06:39] LABS: Hematocrit 40.6 % (36.0-46.0); Hemoglobin 14.3 g/dL (12.2-16.2); Mean Corpuscular Hemoglobin 33.5 pg (28.0-32.0); Mean Corpuscular Volume 94.9 fL (80.0-100.0); Nucleated Red Blood Cells % 0.0 %
[2024-12-26 06:59] LABS: INR 0.96 (0.9-1.15); Partial Thromboplastin Time 44.6 SEC (24.5-34.5); Prothrombin Time 10.2 sec (9.3-11.8)
[2024-12-26 07:00] LABS: Chloride 106 mmol/L (98-107); Potassium 3.9 mmol/L (3.5-5.1); Sodium 140 mmol/L (136-145)
[2024-12-26 07:01] LABS: Anion Gap 10 (5-15); Carbon Dioxide 24 mmol/L (20-31)
[2024-12-26 07:07] LABS: BUN/Creatinine Ratio 11.5 (10.0-20.0); Blood Urea Nitrogen 17 mg/dL (9-23); Glucose 103 mg/dL (74-106)
[2024-12-26 07:09] LABS: Calcium 10.6 mg/dL (8.7-10.4)
[2024-12-26 08:00] VITALS: PULSE 63; PULSE 91; RESP 18; O2SAT 96
[2024-12-26 09:00] VITALS: BP 124/82; PULSE 66; RESP 18; TEMP 98.4; O2SAT 91
[2024-12-26] MEDS: HEPARIN DRIP/D5W 100UNITS/ML 250 ML IV SCH (09:09)
--- NOTE | 2024-12-26 09:15 | CONS ---
Pharmacy Clinical Information: HEPARIN PER PHARMACY SPOKE TO AB Nelson REGARDING heparin dose change Current dose: 400 units/hr CURRENT aPTT: 44.6 on 12/26/24 at 06:03 BOLUS: no Increase heparin drip rate (new dose): 600 units/hr Date and time new dose started: 09:09 on 12/26/2024 Next aPTT: 12/26/2024 AT 15:15 AB Nelson READ BACK NEW DOSE: 600 UNITS/HR GUIDO Giles Dec 26, 2024 09:15
[2024-12-26 10:09] LABS: INR 0.97 (0.9-1.15); Partial Thromboplastin Time 46.6 SEC (24.5-34.5); Prothrombin Time 10.3 sec (9.3-11.8)
[2024-12-26] MEDS ORDERED: CLOP75TA70 PO (11:32)
[2024-12-26] MEDS ORDERED: ROSU40TA47 PO (11:32)
[2024-12-26] MEDS ORDERED: APIX2.5T PO (11:32)
[2024-12-26 13:00] VITALS: BP 123/70; PULSE 79; RESP 20; TEMP 98.4; O2SAT 95
[2024-12-26 13:41] VITALS: BP 124/82; PULSE 91; RESP 18; TEMP 98.4; O2SAT 96
== END 2024-12-26 15:28 | disposition home or self-care (01) | DRG 299 ==
LOC: EDBD 21:51 → ER 21:51 → OVERFLOW 12-22 01:32 → TELE-EAST 12-22 03:18
PROVIDERS: ADMIT Hospitalist; ATTEND Hospitalist
DX: E11.51 Type 2 diabetes mellitus with diabetic peripheral angiopathy without gangrene (principal); N17.0 Acute kidney failure with tubular necrosis; F02.818 Dementia in other diseases classified elsewhere, unspecified severity, with other behavioral disturbance; G30.9 Alzheimer's disease, unspecified; I10 Essential (primary) hypertension; I70.292 Other atherosclerosis of native arteries of extremities, left leg; G47.00 Insomnia, unspecified; K21.9 Gastro-esophageal reflux disease without esophagitis; E78.5 Hyperlipidemia, unspecified; Z82.5 Family history of asthma and other chronic lower respiratory diseases; Z79.899 Other long term (current) drug therapy; Z79.84 Long term (current) use of oral hypoglycemic drugs; Z90.49 Acquired absence of other specified parts of digestive tract
CPT/HCPCS: 36415; 71045; 80048; 80053; 81001; 83605; 83880; 84484; 85025; 85610; 85730; 87081; 96361; 96365; G0378

== ENCOUNTER 2024-12-29 10:38 | Emergency (ER) | payer OTHER, MEDICAID ==
[~2024-12-29] VITALS: Ht 157.5 cm; Wt 65.0 kg
--- NOTE | 2024-12-29 11:10 | ED.PDOC ---
History of Present Illness HPI Comments A 75 YEAR OLD FEMALE BROUGHT IN BY AMBULANCE PRESENTS TO THE ED WITH COMPLAINT OF LEFT 5TH TOE PAIN AND REQUEST FOR PAIN MANAGEMENT. PATIENT STATES SHE WAS DIAGNOSED WITH PERIPHERAL VASCULAR DISEASE HERE IN THIS ED 3 DAYS AGO AFTER BEING ADMITTED. PATIENT WAS ADMITTED TO THIS HOSPITAL TWICE IN THE LAST 1 MONTH FOR THE SAME COMPLAINT WHERE MULTIPLE TESTS, X-RAYS, ARTERIAL STUDIES, AND CT SCANS WERE DONE ALL OF WHICH WAS NORMAL. PATIENT NOTES THAT SHE WAS PRESCRIBED MULTIPLE MEDICATIONS AFTER SHE WAS DISCHARGED FROM THIS HOSPITAL, BUT DID NOT RECEIVE ANY PAIN MEDICINE. PATIENT IS HERE IN THE ED TODAY REQUESTING PAIN MANAGEMENT FOR HER LEFT 5TH TOE PAIN. PATIENT DENIES FEVER, CHILLS, SHORTNESS OF BREATH, CHEST PAIN, ABDOMINAL PAIN, NAUSEA, VOMITING, HEADACHE, OR OTHER COMPLAINTS. NO OTHER SYMPTOMS OR MODIFYING FACTORS AT THIS TIME. PATIENT IS ALERT, ORIENTED X 4, AND HAS STEADY GAIT. Chief Complaint: Lower Extremity Time Seen by MD: 10:47 Primary Care Provider: Cullen Holt Notes: Nurses Notes, Electro Mechanical Technician Notes, Medications, Allergies Allergies: Coded Allergies: NO KNOWN ALLERGIES (Unverified , 12/29/24) Home Meds Active Scripts Tramadol HCl (Tramadol HCl) 50 Mg Tab, 50 MG PO BID, #14 TAB Prov:JOSHUA RUBINPUJA GALLEGOS 12/29/24 Information Source: Patient, Emergency Med Personnel Mode of Arrival: EMS Severity: Moderate Timing: Weeks Duration: Since onset Prehospital treatment: None Medication Refill: For: Other (REQUEST FOR PAIN MANAGEMENT) Past Medical History PAST MEDICAL HISTORY: HTN Surgical History: Denies all surgeries WINCH OPERATOR History: Denies all WINCH OPERATOR Hx, No Pertinent WINCH OPERATOR History Family History Family History: Reviewed,noncontributory to illness Social History Smoker: Non-Smoker Alcohol: Denies ETOH Use Drugs: Denies Drug Use Lives In: Home Constitutional: denies: chills, diaphoresis, fatigue, fever, malaise, sweats, weakness, others EENTM: denies: blurred vision, double vision, ear bleeding, ear discharge, ear drainage, ear pain, ear ringing, eye pain, eye redness, hearing loss, mouth pain, mouth swelling, nasal discharge, nose bleeding, nose congestion, nose pain, photophobia, tearing, throat pain, throat swelling, voice changes, others Respiratory: denies: cough, hemoptysis, orthopnea, SOB at rest, shortness of breath, SOB with excertion, stridor, wheezing, others Cardiovascular: denies: chest pain, dizzy spells, diaphoresis, Dyspnea on exertion, edema, irregular heart beat, left arm pain, lightheadedness, palpitations, PND, syncope, others Gastrointestinal: denies: abdomen distended, abdominal pain, blood streaked bowels, constipated, diarrhea, dysphagia, difficulty swallowing, hematemesis, melena, nausea, poor appetite, poor fluid intake, rectal bleeding, rectal pain, vomiting, others Genitourinary: denies: abnormal vagina bleeding, burning, dyspareunia, dysuria, flank pain, frequency, hematuria, incontinence, pain, , vagina discharge, urgency, others Neurological: denies: dizziness, fainting, headache, left sided numbness, left sided weakness, numbness, paresthesia, pre-existing deficit, right sided n umbness, right sided weakness, seizure, speech problems, tingling, tremors, weakness, others Musculoskeletal: reports: joint pain, others (LEFT 5TH TOE PAIN); denies: back pain, gout, joint swelling, muscle pain, muscle stiffness, neck pain Integumetry: denies: bruises, change in color, change in hair/nails, dryness, laceration, lesions, lumps, rash, wounds, others Allergic/Immunocompromised: denies: Difficulty Healing, Frequent Infections, Hives, Itching, others Hematologic/Lymphatic: denies: anemia, blood clots, easy bleeding, easy bruising, swollen glands, others Endocrine: denies: excessive hunger, excessive sweating, excessive thirst, excessive urination, flushing, intolerance to cold, intolerance to heat, unexplained weight gain, unexplained weight loss, others Psychiatric: denies: anxiety, bipolar disorder, depression, hopeless, panic disorder, schizophrenia, sleepless, suicidal, others All Other Systems: Reviewed and Negative Physical Exam General Appearance: No Apparent Distress, Normal HEENT: Normal ENT Inspection, PERRL/EOMI, Pharynx Normal, TMs Normal Neck: Full Range of Motion, Non-Tender, Normal, Normal Inspection Respiratory: Chest Non-Tender, Lungs Clear, No Accessory Muscle Use, No Respiratory Distress, Normal Breath Sounds Cardiovascular: No Edema, No JVD, No Murmur, No Gallop, Normal Peripheral Pulses, Regular Rate/Rhythm Breast Exam: Deferred Gastrointestinal: No Organomegaly, Non Tender, No Pulsatile Mass, Normal Bowel Sounds, Soft Genitalia: Deferred Pelvic: Deferred Rectal: Deferred Extremities: No calf tenderness, Normal capillary refill, Normal range of motion, No pedal edema, Tender (TENDERNESS WITH MILD SWELLING AND BRUISE COLOR NOTED TO LEFT 5TH TOE. NO SIGNS OF INFECTION, NEUROVASCULARY INTACT, NORMAL GAIT. ) Musculoskeletal : Apperance: Normal Neurologic: Alert, hygiene coordinator II-XII nml as Tested, No Motor Deficits, Normal Affect, Normal Mood, No Sensory Deficits Cerebellar Function: Normal Reflexes: Normal Skin: Bruises (ON LEFT 5TH TOE, NO OPEN WOUND AND DEFORMITY. ), Dry, Normal Color, Warm Peripheral Pulses: 2+ carotid (R), 2+ carotid (L), 2+ dorsalis pedis (R), 2+ dorsalis pedis (L) Lymphatic: No Adenopathy Was a procedure done? Was a procedure done?: No Differential Dx Considerations may include: CHRONIC LEFT 5TH TOE PAIN, PAIN MANAGEMENT, HISTORY OF PERIPHERAL VASCULAR DISEASE X-Ray, Labs, Meds, VS Vital Signs Date Time Temp Pulse Resp B/P (MAP) Pulse Ox O2 Delivery O2 Flow Rate FiO2 12/29/24 10:46 98.2 98 16 148/100 (116) 99 98.2 X-Ray, Labs, Meds, VS Comment EXTERNAL MEDICAL RECORDS REVIEWED: [NONE] INDEPENDENT HISTORIANS: [NONE] SOCIAL DETERMINANTS OF HEALTH: [NONE] LABS ORDERED: NONE REVIEWED AND INTERPRETED RESULTS: NONE IMAGING ORDERED: NONE TREATMENTS ORDERED: ULTRAM 50MG PO PROCEDURES PERFORMED: NONE CRITICAL CARE TIME: NONE I HAVE DISCUSSED THE PATIENT WITH THE ATTENDING PHYSICIAN DR. MONROY AND HE AGREES WITH THE PATIENT'S PLAN OF CARE AND DISPOSITION. BASED ON HISTORY OF PRESENT ILLNESS, AND PHYSICAL EXAM, PATIENT WILL BE DISCHARGED HOME. DISCUSSED PLAN FOR DISCHARGE HOME WITH RX [ULTRAM]. MEDICATION WARNINGS GIVEN. SHARED DECISION MAKING: PATIENT INSTRUCTED TO FOLLOW UP WITH PRIMARY CARE PROVIDER IN 1-2 DAYS FOR RE-EVALUATION OF SYMPTOMS. PATIENT VERBALIZES UNDERSTANDING TO RETURN TO ED FOR NEW OR WORSENING SYMPTOMS OR IF FOLLOW UP WITH PCP CANNOT BE OBTAINED. PATIENT FEELS COMFORTABLE GOING HOME AT THIS TIME. ALL QUESTIONS ADDRESSED AT TIME OF DISCHARGE. Time of 1ST Reevaluation: 12:00 Reevaluation 1ST: Improved Patient Education/Counseling: Diagnosis, Treatment, Need For Follow Up Family Education/Counseling: Diagnosis, Treatment, Need For Follow Up Medical Screening: No EMC Exist At This Time SEPSIS Sepsis Screen Date sepsis recognized/suspect: Dec 29, 2024 Time Sepsis recognized/suspect: 1042 Recent Procedure: No On Antibiotic Therapy: No Respiratory Rate >20: No Heart Rate >90: Yes Temp<36 C (96.8 F) or >38.3 C: No SBP <90 or MAP <65 mmHG: No New Acute Mental Status Change: No Is the patient on CPAP, BIPAP,: No Physician Orders Tramadol Hcl (Ultram) (12/29/24 11:45) Vital Signs Date Time Temp Pulse Resp B/P (MAP) Pulse Ox O2 Delivery O2 Flow Rate FiO2 12/29/24 10:46 98.2 98 16 148/100 (116) 99 98.2 Departure 1 Departure Time of Disposition: 12:00 Impression: Primary Impression: Pain management Additional Impression: Chronic pain of toe of left foot Disposition: HOME / SELF CARE / HOMELESS Condition: Stable Additional Instructions: FOLLOW-UP WITH PCP IN 1 TO 2 DAYS. TAKE MEDICATIONS PRESCRIBED. RETURN TO ED FOR ANY NEW OR WORSENING SYMPTOMS. e-Prescriptions Tramadol HCl (Tramadol HCl) 50 Mg Tab 50 MG PO BID, #14 TAB Prov: JULIAN RUBIN 12/29/24 Discharged With: Self, Relative Critical Care Note Critical Care Time?: No Stability Stability form required: No I personally scribed for JULIAN RUBIN ([email or web address]) on 12/29/24 at 11:10. Electronically submitted by Jose Eduardo Amaya ([email or web address]). I personally scribed for JULIAN RUBIN ([email or web address]) on 12/29/24 at 11:34. Electronically submitted by Jose Eduardo Amaya ([email or web address]). JULIAN RUBIN Dec 29, 2024 11:10
[2024-12-29] MEDS ORDERED: TRAM-626 PO (11:33)
[2024-12-29 11:53] VITALS: BP 150/98; PULSE 96; RESP 16; TEMP 98.1; O2SAT 99
== END 2024-12-29 12:17 | disposition home or self-care (01) ==
LOC: EDBD 10:38 → EDUNIT# 10:53 → ER 10:53 → EDBD 10:53 → ER 12:14
DX: G89.29 Other chronic pain (principal); M79.675 Pain in left toe(s); I10 Essential (primary) hypertension; Z01.89 Encounter for other specified special examinations